=== PATIENT | male | born 1930 | race Caucasian/White ===

== ENCOUNTER 2018-05-26 14:06 | Day surgery (SDC) | payer OTHER ==
[2018-05-23 12:32] VITALS: BMI 28.8
[2018-05-26] MEDS ORDERED: PROPOFOL 20 ML ONE (15:19)
[2018-05-26] MEDS ORDERED: SUCCINYLCHOLINE CHLORIDE 200 MG/10 ML VIAL ONE (15:19)
[2018-05-26] MEDS ORDERED: ROCURONIUM BROMIDE 50 MG/5 ML VIAL ONE (15:19)
[2018-05-26] MEDS ORDERED: LIDOCAINE HCL 1%, 10 MG/ML (20ML VIAL) ONE (15:20)
[2018-05-26] MEDS ORDERED: BACITRACIN 15 GM TUBE TOPICAL OINTMENT ONE (15:20)
[2018-05-26] MEDS ORDERED: LIDOCAINE HCL/PF 2% SDV 5ML VIAL ONE (15:25)
[2018-05-26] MEDS ORDERED: ceFAZolin SODIUM 1 GM VIAL IVPB ONE (16:12)
[2018-05-26] MEDS ORDERED: ceFAZolin SODIUM 1 GM VIAL ONE (16:15)
[2018-05-26] MEDS ORDERED: ONDANSETRON 4 MG/2 ML VIAL IVPUSH PRN (16:16)
[2018-05-26] MEDS ORDERED: PHENYLEPHRINE HCL 10 MG/1 ML SINGLE DOSE VIAL ONE (16:29)
[2018-05-26] MEDS ORDERED: LACTATED RINGERS SOLUTION 1,000 ML IV SCH (16:30)
[2018-05-26] MEDS ORDERED: GLYCOPYRROLATE 0.2 MG/1 ML VIAL ONE (16:30)
[2018-05-26] MEDS ORDERED: NEOSTIGMINE METHYLSULFATE 0.5 MG/ML - 10 ML MDV ONE (16:34)
--- NOTE | 2018-05-26 16:44 | HP ---
Satellite PMH - Chief Complaint History of Present Illness: 87 year old man with open wound of left posterior calf with exposed tendon. He is s/p revascularization of femoral and tibial arteries with improved vascularity of the wound. History Source: Patient Limitations to Obtaining History: No Limitations - Past Medical History Allergies/Adverse Reactions: Allergies Allergy/AdvReac Type Severity Reaction Status Date / Time No Known Allergies Allergy Verified 05/23/18 12:32 Cardiovascular: Yes: CAD, Hyperlipdemia, Other (PAD) Endocrine: Yes: Diabetes Mellitus, Hypothyroidism - Current Medications Current Medications: Home Medications Medication Instructions Recorded Levothyroxine [Synthroid -] 150 mcg PO DAILY 05/14/18 Lipitor 40 mg PO DAILY 05/14/18 Metformin HCl ER 750 mg PO TID 05/14/18 Metoprolol Tartrate 25 mg PO BID 05/14/18 Aspirin [ASA -] 81 mg PO DAILY 05/23/18 Ergocalciferol [Vitamin D2] 50,000 unit PO Q7D@1000 05/23/18 Satellite Physical Exam - Physical Examination Vital Signs: Vital Signs Period Temp Pulse Resp BP Sys/De La Cruz Pulse Ox Last 24 Hr 98.0 F-98.0 F 87-87 -18 103-103/65-65 95 General Appearance: Alert & Oriented x3 ENT: Clear Lung: Clear to auscultation Heart: Regular rate & rhythm Abdomen: Soft Extremities: Other (2+ edema left ankle and foot. Open wound posterior lower calf with necrotic Achilles tendon and granulation tissue around.) Satellite Impression/Plan - Impression/Plan Impression: Open wound with necrotic tendon left foot. S/p revascularization with improved distal flow. DM Operative Procedure: Excsional debridement skin and tendon left leg Date to be Performed: 05/26/18
--- NOTE | 2018-05-26 16:46 | OP ---
Operative Note - Note: Operative Date: 05/26/18 Pre-Operative Diagnosis: Necrosis Achilles tendon left leg. Open wound left leg Operation: Excisional debridement left leg wound, skin, subQ and tendon Findings: Necrosis of superficial portion left Achilles tendon. Deeper section of tendon appeared viable. Post-Operative Diagnosis: Same as Pre-op Surgeon: Yuri Duran Anesthesiologist/VINEYARD SUPERVISOR: Ignacio Suarez Anesthesia: General Specimens Removed: Achilles tendon Estimated Blood Loss (mls): 20 Operative Report Dictated: Yes
[2018-05-26 20:01] VITALS: BP 138/77; PULSE 66; TEMP 98
--- NOTE | 2018-05-27 09:05 | OP ---
DATE OF OPERATION: 05/26/2018 SURGEON: Yuri Joshi MD PROCEDURE: Excisional debridement of left leg wound including skin and tendon. PREOPERATIVE DIAGNOSIS: Necrotic Achilles tendon, left leg. POSTOPERATIVE DIAGNOSIS: Necrotic Achilles tendon, left leg. ANESTHESIA: General ANESTHESIOLOGIST: Ignacio Suarez MD OPERATIVE FINDINGS: There was a chronic wound on the posterior aspect of the left lower calf and heel. The wound measured approximately 15 cm in length, and there was exposed Achilles tendon which was necrotic superficially. OPERATIVE PROCEDURE: Following routine patient identification with side and site verification, general anesthesia was induced. The patient was placed in the prone position with appropriate padding. The left leg and foot were prepped with Betadine solution. Timeout was performed. The tract over the Achilles tendon was opened superiorly with a scalpel, using cautery for hemostasis. The tendon was then excised to remove the necrotic portion without total excision of the tendon. The cut portion appeared viable with bleeding seen from the base. The tendon was debrided from the calcaneus back to the upper end of the incision as there did not appear to be any tracking along the tendon. Scalpel and curette were then used to debride the surrounding soft tissue and skin to remove any nonviable tissue. The wound was irrigated with saline. The wound was then packed open with moist gauze, covered with Xeroform, dry gauze, ABD pad, Kerlix, and Stanley bandage. A posterior mold was then created using fiberglass to keep the foot in a neutral position. This was attached to the leg with a couple of Stanley bandages. The patient was then taken to the recovery room in stable condition. YURI OJSHI M.D. [id number]
--- NOTE | 2018-05-28 12:03 | PATH ---
Surgical Pathology Report Patient Name: [facility]. Rec. #: [id number] /Age/Gender: 1930 (Age: 87) / M Account: [id number] Location: [facility] SURGICAL Taken: 05/26/2018 Received: 05/27/2018 Reported: 05/28/2018 Physicians: Yuri Duran M.D. Specimen(s) Received NECROTIC TISSUE LEFT ACHILLES TENDON Clinical History Necrosis Achilles tendon Final Diagnosis ACHILLES TENDON, LEFT, NECROTIC TISSUE, EXCISION: SOFT TISSUE WITH MARKED ACUTE NECROTIZING INFLAMMATION AND GRANULATION TISSUE. Electronically Signed Kay Freeman M.D. Gross Description Received in formalin labeled "necrotic tissue left Achilles tendon," is a 6.5 x 4.4 x 1.2 cm aggregate of morales-gage, necrotic portions of fibrous tissue, consistent with necrotic tendon. Worker'S Compensation Claims Examiner sections are submitted in one cassette. 05/27/201805/27/2018
== END 2018-05-26 19:55 | disposition home or self-care (01) ==
LOC: JASU-SURG 14:06
PROVIDERS: ATTEND Surgery
PROC: 0LBP0ZZ Excision of Left Lower Leg Tendon, Open Approach (ICD-10-PCS; principal; 2018-05-26 15:30)
DX: E11.9 Type 2 diabetes mellitus without complications (principal); Z79.84 Long term (current) use of oral hypoglycemic drugs
CPT/HCPCS: 82962; 88304-TC; 94760

== ENCOUNTER 2018-07-04 18:32 | Emergency (ER) | payer OTHER ==
--- NOTE | 2018-07-04 18:56 | PDOC ---
Rapid Medical Evaluation Time Seen by Provider: 07/04/18 18:49 Medical Evaluation: Allergies Allergy/AdvReac Type Severity Reaction Status Date / Time No Known Allergies Allergy Verified 06/11/18 14:39 07/04/18 18:52 I have performed a brief in-person evaluation of this patient. The patient presents with a chief complaint of: Sent in for evaluation for possible cellulitis to LLE. Pt f/u with Dr Duran and is currently on augmentin, took 2 doses so far. States visiting nurse saw wound today and was concerned about ?worsening swelling and warmth to L leg. Pt denies pain or fever. H/o DM, necrosis of L achilles tendon w/ open wound, s/p debridement Pertinent physical exam findings:Stable and well christian, w/ LLE dressing in place I have ordered the following:labs The patient will proceed to the ED for further evaluation. 07/04/18 18:59 Discharge Disposition - Diagnosis Cellulitis, leg Qualifiers: Laterality: left Qualified Code(s): L03.116 - Cellulitis of left lower limb - Referrals - Patient Instructions - Post Discharge Activity
[2018-07-04 19:00] VITALS: BP 135/100; PULSE 75; TEMP 98; BMI 27.6
--- NOTE | 2018-07-04 20:15 | PDOC ---
Attending Attestation - HPI HPI: 07/04/18 20:57 The patient is a 87 year old male, with a significant PMH of diabetes mellitus, who presents to the emergency department for evaluation of worsening chronic left lower extremity wound. The patient endorses 3 days of worsening left lower extremity erythema, edema and pain proximal to the wound. The patient states he was seen by wound care Dr Whittington yesterday and started on Augmentin 875 mg BID ( patient states he has since completed 2 doses). The patient states the home wound care nurse advised the patient to come to the ED for evaluation today secondary to worsening cellulitis vs DVT. The patient states he is able to ambulate with a limp. The patient denies chest pain, shortness of breath, headache and dizziness. Denies fever, chills, nausea, vomit, diarrhea and constipation. Denies dysuria, frequency, urgency and hematuria. Allergies: NKA Documentation prepared by Sven Mas, acting as medical advisor for Soco Valerio MD. - Physicial Exam PE: 07/04/18 21:45 GENERAL: Awake, alert, and fully oriented, in no acute distress HEAD: No signs of trauma EYES: PERRLA, EOMI, sclera anicteric, conjunctiva clear ENT: Auricles normal inspection, hearing grossly normal, nares patent, oropharynx clear without exudates. Moist mucosa NECK: Normal ROM, supple, no lymphadenopathy, JVD, or masses LUNGS: Breath sounds equal, clear to auscultation bilaterally. No wheezes, and no crackles HEART: Regular rate and rhythm, normal S1 and S2, no murmurs, rubs or gallops ABDOMEN: Soft, nontender, normoactive bowel sounds. No guarding, no rebound. No masses EXTREMITIES: Normal range of motion, no edema. No clubbing or cyanosis. No cords, erythema, or tenderness NEUROLOGICAL: Cranial nerves II through XII grossly intact. Normal speech. SKIN: (+) 12 cm by 5 cm left open achilles wound, good distal granulation with area of proximal necrosis w/ fibrinous exudate. (+) Erythema, edema, and warmth noted to proximal 1/3 of calf. Warm, Dry, normal turgor, no rashes. <Sven Mas - Last Filed: 07/04/18 21:45> - Resident Resident Name: Matt Tavarez - ED Attending Attestation I have performed the following: I have examined & evaluated the patient, The case was reviewed & discussed with the resident, I agree w/resident's findings & plan - Medical Decision Making 07/04/18 20:36 Pt will have sonogram of the left calf. He had a wet to dry dressing replaced. He has surrounding cellulitis going up the posterior aspect of his calf. 07/04/18 22:06 Pt's sed rate is 92. Duplex doppler of the left calf is pending. 07/04/18 22:45 Pt's sed rate and CRP are elevated; we spoke to wound care/vasc surg Dr. Duran who is aware and agrees that pt is stable for discharge home. <Soco Valerio - Last Filed: 07/04/18 22:46>
--- NOTE | 2018-07-04 20:15 | PDOC ---
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 The patient was evaluated by wound care yesterday and given Augmentin BID, of which he has taken two doses. He was seen by the home wound care nurse today and advised to present to the ED for evaluation for concern of worsening cellulitis vs DVT. Patient's dressing is normally changes Q3D. Patient ambulates with cane. No prolonged lack of ambulation Denies fevers/chills, myalgias, GAUTHIER, vision changes, chest pain, SOB, abdominal pain, N/V/C/D. 07/04/18 20:38 Past History - Past Medical History Allergies/Adverse Reactions: Allergies Allergy/AdvReac Type Severity Reaction Status Date / Time No Known Allergies Allergy Verified 07/04/18 18:58 Home Medications: Ambulatory Orders Levothyroxine [Synthroid -] 150 mcg PO DAILY 05/14/18 Lipitor 40 mg PO DAILY 05/14/18 Metformin HCl ER 750 mg PO TID 05/14/18 Metoprolol Tartrate 25 mg PO BID 05/14/18 Aspirin [ASA -] 81 mg PO DAILY 05/23/18 Ergocalciferol [Vitamin D2] 50,000 unit PO SA 05/23/18 Collagenase Clostridium Hist. [Santyl] 1 applic TP DAILY 30 Days #60 oint...g. 05/28/18 Amox-Tr/K Cl [Augmentin - 875Mg Tablet] 1 tab PO BID 07/04/18 Anemia: No Asthma: No Cancer: Yes (thyroid (removed)) Cardiac Disorders: No CVA: No COPD: No CHF: No Dementia: No Diabetes: Yes GI Disorders: No Disorders: No HTN: No Hypercholesterolemia: No Liver Disease: No Seizures: No Thyroid Disease: No - Surgical History Orthopedic Surgery: Yes ([place] knees , right hip replacement) - Suicide/Smoking/Psychosocial Hx Smoking History: Unknown if ever smoked Have you smoked in the past 12 months: No Hx Alcohol Use: No Drug/Substance Use Hx: No Substance Use Type: None Review of Systems - Review of Systems Able to Perform ROS?: Yes Comments:: GENERAL/CONSTITUTIONAL: No fever or chills. No weakness HEAD, EYES, EARS, NOSE AND THROAT: No change in vision. No ear pain or discharge. No sore throat CARDIOVASCULAR: No chest pain or shortness of breath RESPIRATORY: Denies cough, hemoptysis GASTROINTESTINAL: No nausea, vomiting, diarrhea or constipation GENITOURINARY: No dysuria, frequency, or change in urination MUSCULOSKELETAL: No joint or muscle swelling or pain. No neck or back pain SKIN: per HPI NEUROLOGIC: No headache, vertigo, loss of consciousness, or change in strength/ sensation ENDOCRINE: No increased thirst. No abnormal weight change HEMATOLOGIC/LYMPHATIC: No anemia, easy bleeding, or history of blood clots ALLERGIC/IMMUNOLOGIC: No hives or skin allergy 07/04/18 20:13 Is the patient limited Slovak proficient: No *Physical Exam - Vital Signs Last Vital Signs Temp Pulse Resp BP Pulse Ox 98 F 75 18 135/100 98 07/04/18 18:58 07/04/18 18:58 07/04/18 18:58 07/04/18 18:58 07/04/18 18:58 - Physical Exam Comments: GENERAL: Awake, alert, and fully oriented, in no acute distress HEAD: No signs of trauma, normocephalic, atraumatic EYES: PERRLA, EOMI, sclera anicteric, conjunctiva clear ENT: Hearing grossly normal, nares patent, oropharynx clear without exudates. Moist mucosa LUNGS: No distress, speaks full sentences, clear to auscultation bilaterally HEART: Regular rate and rhythm, normal S1 and S2, no murmurs appreciated, peripheral pulses normal and equal bilaterally ABDOMEN: Soft, nontender, normoactive bowel sounds. No guarding, no rebound EXTREMITIES: Wound as per below, otherwise FROM and strength 5/5 throughout NEUROLOGICAL: Cranial nerves II through XII grossly intact. Normal speech, no focal sensorimotor deficits SKIN: L open achilles wound, 13cm x 4cm, good distal granulation with area of proximal necrosis w/ fibrinous exudate. Proximal to wound, cellulitis, erythema , swelling, warmth to proximal 1/3 of calf. 07/04/18 20:15 Moderate Sedation - Procedure Monitoring Vital Signs: Procedure Monitoring Vital Signs Temperature 98 F 07/04/18 18:58 Pulse Rate 75 01/18/19 18:58 Respiratory Rate 18 07/04/18 18:58 Blood Pressure 135/100 07/04/18 18:58 O2 Sat by Pulse Oximetry (%) 98 07/04/18 18:58 ED Treatment Course - LABORATORY CBC & Chemistry Diagram: 07/04/18 21:10 07/04/18 21:10 - RADIOLOGY Radiology Studies Ordered: Category Date Time Status CHEST X-RAY PORTABLE* [RAD] Stat Radiology 07/04/18 20:11 Ordered Medical Decision Making - Medical Decision Making The patient is an 87M w/ a history of T2DM and a L open achilles wound who presents for evaluation for concern of proximal cellulitis vs DVT ED Course CMP, CBC, Blood cx, ESR, CRP ECG, CXR 07/04/18 20:45 No HUDSON No leukocytosis CRP mildly elevated Discussed case w/ Dr. Duran, in agreement pt okay to D/C home with continued Augmentin regimen. Plan discussed w/ patient who in agreement and verbalized understanding Discharge instructions and return precautions given Dispo: home 07/05/18 04:59 *DC/Admit/Observation/Transfer Diagnosis at time of Disposition: Cellulitis, leg Qualifiers: Laterality: left Qualified Code(s): L03.116 - Cellulitis of left lower limb - Discharge Dispostion Disposition: HOME Condition at time of disposition: Stable Decision to Admit order: No - Referrals Referrals: Yuri Duran MD [Staff Physician] - - Patient Instructions Printed Discharge Instructions: DI for Cellulitis -- Adult Additional Instructions: You were seen in the Emergency Department for evaluation of left leg redness concerning for cellulitis. You did not have a fever and labs were not concerning for systemic infection. Continue to take the antibiotic prescribed. Follow up with your primary care provider and Dr. Duran. Return to the Emergency Department if you develop fevers/chills, chest pain, trouble breathing, worsening of your cellulitis despite antibiotic use, or any new/concerning symptoms. - Post Discharge Activity
[2018-07-04] MEDS ORDERED: AMOX TR/POT CLAV 875MG/125MG TABLETS (FP) PO ONE (20:55)
[2018-07-04 21:24] LABS: BASO % 0.7 % (0-2.0); EOS % 0.7 % (0-4.5); HEMATOCRIT 35.9 % (35.4-49); HEMOGLOBIN 12.5 GM/dL (11.7-16.9); LYMPH % 9.7 % (8-40); MCHC 34.8 g/dl (32.0-35.9); MEAN CELL VOLUME 89.1 fl (80-96); MEAN PLT VOLUME 8.1 fl (7.5-11.1); MONO % 10.2 % (3.8-10.2); NEUT % 78.7 % (42.8-82.8); PLATELET COUNT 245 K/MM3 (134-434); RBC 4.02 M/mm3 (4.00-5.60); RDW 13.8 % (11.9-15.9); WHITE BLOOD COUNT 10.4 K/mm3 (4.0-10.0)
[2018-07-04] MEDS ORDERED: AMOX TR/POT CLAV 875MG/125MG TABLETS (FP) ONE (21:41)
[2018-07-04 21:53] LABS: ALK PHOS 94 U/L (45-117); ANION GAP 10 MMOL/L (8-16); BILIRUBIN,TOTAL 0.6 mg/dL (0.2-1); BLOOD UREA NITROGEN 20 mg/dL (7-18); CALCIUM 8.4 mg/dL (8.5-10.1); CHLORIDE 102 mmol/L (98-107); CO2 28 mmol/L (21-32); CREATININE 0.8 mg/dL (0.55-1.3); GLUCOSE,RANDOM 121 mg/dL (74-106); POTASSIUM 4.4 mmol/L (3.5-5.1); SGOT/AST 20 U/L (15-37); SGPT/ALT 19 U/L (13-61); SODIUM 139 mmol/L (136-145); TOT PROT 6.7 g/dl (6.4-8.2)
--- NOTE | 2018-07-06 19:27 | EKG ---
Test Reason : Blood Pressure : / mmHG Vent. Rate : 092 BPM Atrial Rate : 092 BPM P-R Int : 196 ms QRS Dur : 088 ms QT Int : 342 ms P-R-T Axes : 051 039 018 degrees QTc Int : 422 ms NORMAL SINUS RHYTHM NORMAL ECG NO PREVIOUS ECGS AVAILABLE Confirmed by ANGELITO WALKER MD ([id number]) on 07/06/2018 7:27:11 PM Referred By: Confirmed By:ANGELITO WALKER MD
== END 2018-07-04 23:27 | disposition home or self-care (01) ==
LOC: JER 18:32
DX: L03.116 Cellulitis of left lower limb (principal); E11.9 Type 2 diabetes mellitus without complications; Z79.84 Long term (current) use of oral hypoglycemic drugs; Z85.850 Personal history of malignant neoplasm of thyroid; E89.0 Postprocedural hypothyroidism
CPT/HCPCS: 36415; 71045-TC-FY; 80053; 85025; 85651; 86140; 87040; 93005; 93010; 93971-TC; 99283-25

== ENCOUNTER 2018-07-14 14:00 | Day surgery (SDC) | payer OTHER ==
[2018-07-10 13:20] VITALS: BMI 29.1
--- NOTE | 2018-07-14 17:05 | HP ---
Satellite H - Chief Complaint History of Present Illness: 87 year old man with open wound of left posterior calf s/p debridement 1 month ago. He has deveoped proximal infection under skin requiring drainage. History Source: Patient - Past Medical History Allergies/Adverse Reactions: Allergies Allergy/AdvReac Type Severity Reaction Status Date / Time No Known Allergies Allergy Verified 07/14/18 15:41 Cardiovascular: Yes: CAD, Hyperlipdemia, Other (PAD) Endocrine: Yes: Diabetes Mellitus, Hypothyroidism - Current Medications Current Medications: Home Medications Medication Instructions Recorded Levothyroxine [Synthroid -] 150 mcg PO DAILY 05/14/18 Lipitor 40 mg PO DAILY 05/14/18 Metformin HCl ER 750 mg PO TID 05/14/18 Metoprolol Tartrate 25 mg PO BID 05/14/18 Aspirin [ASA -] 81 mg PO DAILY 05/23/18 Ergocalciferol [Vitamin D2] 50,000 unit PO SA 05/23/18 Collagenase Clostridium Hist. 1 applic TP DAILY 30 Days #60 05/28/18 [Santyl] oint...g. Satellite Physical Exam - Physical Examination Vital Signs: Vital Signs Period Temp Pulse Resp BP Sys/De La Cruz Pulse Ox Last 24 Hr 97.4 F 105 20 104/60 98 General Appearance: Alert & Oriented x3 ENT: Clear Lung: Clear to auscultation Heart: Regular rate & rhythm Abdomen: Soft, No tenderness Extremities: Other (Left posterior calf with granulating base. Proximal tunnel with purulent drainage) Satellite Impression/Plan - Impression/Plan Impression: Infection left calf Operative Procedure: Debridement of left calf Date to be Performed: 07/14/18
[2018-07-14] MEDS ORDERED: CLINDAMYCIN 600 MG PREMIX BAG IVPB ONE (17:37)
--- NOTE | 2018-07-14 18:16 | OP ---
Operative Note - Note: Operative Date: 07/14/18 Pre-Operative Diagnosis: Infected wound left calf Operation: Excisional debridement of fascia and tendon left posterior calf Findings: Necrotic fascia and tendon of posterior compartment of left calf Post-Operative Diagnosis: Same as Pre-op Surgeon: Yuri Duran Anesthesiologist/NITRATING ACID MIXER: Pedro Luis Guerrero Anesthesia: Fractional Estimated Blood Loss (mls): 50
[2018-07-14] MEDS ORDERED: oxyCODONE HCL 5 MG TABLET PO PRN (18:19)
[2018-07-14] MEDS ORDERED: ONDANSETRON 4 MG/2 ML VIAL IVPUSH PRN (18:19)
[2018-07-14] MEDS ORDERED: LACTATED RINGERS SOLUTION 1,000 ML IV SCH (18:30)
[2018-07-14 21:09] VITALS: BP 130/72; PULSE 94; TEMP 98
--- NOTE | 2018-07-16 09:45 | OP ---
DATE OF OPERATION: 07/14/2918 SURGEON: Yuri Joshi M.D. PROCEDURE: Excisional debridement of fascia, tendon and muscle left posterior calf. PREOPERATIVE DIAGNOSIS: Infected wound left calf. POSTOPERATIVE DIAGNOSIS: Infected wound left calf. ANESTHESIA: Fractional. ANESTHESIOLOGIST: Pedro Luis Guerrero M.D. OPERATIVE FINDINGS: There was fascial necrosis extending from the lower posterior calf wound on the left proximally into the mid to upper calf. OPERATIVE PROCEDURE: Following routine patient identification, he was placed in the right lateral decubitus position. Intravenous sedation was established. The left lower leg and foot were prepped with Betadine solution. Timeout was performed. Lidocaine 1% was infiltrated along the posterior aspect of the calf extending proximally from the open wound on the distal calf. An incision was made over the tract along the subcutaneous tissues and divided down to the necrotic fascia with cautery. Cautery and sharp dissection were used to excise grossly necrotic fascia, tendon and muscle. A curette was used to remove additional tissue. The wound was irrigated with dilute peroxide and saline and packed open with Iodoform gauze. A sterile wrap was applied and the patient was taken to the recovery room in stable condition. YURI JOSHI M.D. [id number]
--- NOTE | 2018-07-16 17:04 | PATH ---
Surgical Pathology Report Patient Name: ALEX NOGUERA [facility]. Rec. #: [id number] /Age/Gender: 1930 (Age: 87) / M Account: [id number] Location: [facility] SURGICAL Taken: 07/14/2018 Received: 07/15/2018 Reported: 07/16/2018 Physicians: Yuri Duran M.D. Specimen(s) Received NECROTIC TISSUE LEFT LEG Clinical History Left leg wound Final Diagnosis NECROTIC TISSUE, LEG, LEFT, DEBRIDEMENT: SOFT TISSUE WITH MARKED ACUTE NECROTIZING INFLAMMATION. Electronically Signed Kay Freeman M.D. Gross Description Received in formalin labeled "necrotic tissue left leg," is a 7.0 x 5.0 x 2.8 cm aggregate of morales benitez, necrotic soft tissue. Lab Systems Analyst sections are submitted in one cassette. DL/07/15/2018 saudi07/15/2018
== END 2018-07-14 18:19 | disposition home or self-care (01) ==
LOC: JASU-SURG 14:00
PROVIDERS: ATTEND Surgery
PROC: 0LBP0ZZ Excision of Left Lower Leg Tendon, Open Approach (ICD-10-PCS; 2018-07-14)
PROC: 0JBP0ZZ Excision of Left Lower Leg Subcutaneous Tissue and Fascia, Open Approach (ICD-10-PCS; 2018-07-14)
PROC: 0KBT0ZZ Excision of Left Lower Leg Muscle, Open Approach (ICD-10-PCS; principal; 2018-07-14 16:00)
DX: L76.82 Other postprocedural complications of skin and subcutaneous tissue (principal); E11.52 Type 2 diabetes mellitus with diabetic peripheral angiopathy with gangrene; I96 Gangrene, not elsewhere classified; Z79.84 Long term (current) use of oral hypoglycemic drugs
CPT/HCPCS: 88304-TC; 94760

== ENCOUNTER 2018-07-14 21:42 | Inpatient (IN) | payer OTHER, MEDICARE ==
--- NOTE | 2018-07-14 22:00 | PDOC ---
History of Present Illness - General Chief Complaint: Pain, Acute Stated Complaint: FOLLOW UP Time Seen by Provider: 07/14/18 21:59 History Source: Patient Exam Limitations: No Limitations - History of Present Illness Initial Comments: 07/14/18 22:02 This is an 87 yo M with PMH of T2DM and a chronic L achilles wound, who was in the ED 07/04/18 for wound infection and underwent excisional debridement of fascia and tendon left posterior calf earlier today with Dr Sherman, now resents due to inability to ambulate. patient had his surgery at 430 and was sent home by 630pm. he usually ambulates but is unable to do so at this time, unable to get up to the 3rd floor where his apt is and still feels weak and sedated. He denies pain, n/v/c, f/c. He lives alone and has and aid 3 days/week 07/14/18 22:03 07/14/18 22:30 07/14/18 22:34 Past History - Past Medical History Allergies/Adverse Reactions: Allergies Allergy/AdvReac Type Severity Reaction Status Date / Time No Known Allergies Allergy Verified 07/14/18 21:59 Home Medications: Ambulatory Orders Levothyroxine [Synthroid -] 150 mcg PO DAILY 05/14/18 Lipitor 40 mg PO DAILY 05/14/18 Metformin HCl ER 750 mg PO TID 05/14/18 Metoprolol Tartrate 25 mg PO BID 05/14/18 Aspirin [ASA -] 81 mg PO DAILY 05/23/18 Ergocalciferol [Vitamin D2] 50,000 unit PO SA 05/23/18 Collagenase Clostridium Hist. [Santyl] 1 applic TP DAILY 30 Days #60 oint...g. 05/28/18 Clindamycin [Cleocin -] 300 mg PO TID #21 capsule 07/14/18 Anemia: No Asthma: No Cancer: Yes (thyroid (removed)) Cardiac Disorders: No CVA: No COPD: No CHF: No Dementia: No Diabetes: Yes GI Disorders: No Disorders: No HTN: Yes Hypercholesterolemia: Yes Liver Disease: No Seizures: No Thyroid Disease: No - Surgical History Cardiac Surgery: Yes (STENT X1- 5 YEARS AGO) Orthopedic Surgery: Yes (B/L TKR , right hip replacement) - Suicide/Smoking/Psychosocial Hx Smoking History: Never smoked Have you smoked in the past 12 months: No Information on smoking cessation initiated: No Hx Alcohol Use: No Drug/Substance Use Hx: No Substance Use Type: None Review of Systems - Review of Systems Able to Perform ROS?: Yes Is the patient limited Slovenian proficient: No Constitutional: No: Chills, Fever Respiratory: No: Cough, Orthopnea, Shortness of Breath Cardiac (ROS): No: Chest Pain, Palpitations ABD/GI: No: Constipated, Diarrhea, Nausea, Vomiting, Abdominal cramping : No: Dysuria Musculoskeletal: Yes: Muscle Weakness Neurological: Yes: Weakness. No: Headache *Physical Exam - Vital Signs Last Vital Signs Temp Pulse Resp BP Pulse Ox 98.0 F 128 H 16 92/53 L 100 07/14/18 21:43 07/14/18 21:43 07/14/18 21:43 07/14/18 21:43 07/14/18 21:43 - Physical Exam General Appearance: Yes: Appropriately Dressed, Other (sedated ) HEENT: positive: EOMI. negative: Normal Voice (slightly slurred ), Scleral Icterus (R), Scleral Icterus (L) Neck: positive: Supple Respiratory/Chest: positive: Lungs Clear, Normal Breath Sounds Cardiovascular: positive: Regular Rhythm, Regular Rate, S1, S2 Gastrointestinal/Abdominal: positive: Normal Bowel Sounds, Flat, Soft. negative : Tender Extremity: positive: Other (RLE clean dressing intact on foot ) Integumentary: positive: Dry, Warm Neurologic: positive: inventory specialist manager II-XII NML intact (grossly ) Moderate Sedation - Procedure Monitoring Vital Signs: Procedure Monitoring Vital Signs Temperature 98.0 F 07/14/18 21:43 Pulse Rate 128 H 07/14/18 21:43 Respiratory Rate 16 07/14/18 21:43 Blood Pressure 92/53 L 07/14/18 21:43 O2 Sat by Pulse Oximetry (%) 100 07/14/18 21:43 ED Treatment Course - ADDITIONAL ORDERS Additional order review: 07/14/18 22:34 patient is unable to ambulate and appears sedated from recent surgery. requires in hospital observation and PT eval post op *DC/Admit/Observation/Transfer Diagnosis at time of Disposition: Unable to ambulate Cellulitis, leg Qualifiers: Laterality: left Qualified Code(s): L03.116 - Cellulitis of left lower limb - Discharge Dispostion Condition at time of disposition: Guarded Decision to Admit order: Yes - Referrals - Patient Instructions - Post Discharge Activity
--- NOTE | 2018-07-14 22:34 | PDOC ---
Attending Attestation - HPI HPI: The patient is an 87 year old male with a significant past medical history of achilles tendon surgery (07/14/2018), who presents to the emergency department today complaining of trouble with ambulation. Patient states they had achilles tendon surgery this afternoon and was discharged at approximately 6:30pm. Patient states he lives on the third floor and was unable to ambulate there. Patient denies any other complaints. The patient denies chest pain, shortness of breath, headache and dizziness. Denies fever, chills, nausea, vomit, diarrhea and constipation. Denies dysuria, frequency, urgency and hematuria. Allergies: NKA Past surgical history: achilles tendon surgery (07/14/2018) Social history: No reported PCP: Dr. Timothy Jovel 07/14/18 22:37 <Aleyda Zheng - Last Filed: 07/14/18 22:37> - Resident Resident Name: Joan Wise - ED Attending Attestation I have performed the following: I have examined & evaluated the patient, The case was reviewed & discussed with the resident, I agree w/resident's findings & plan, Exceptions are as noted - HPI HPI: 07/14/18 22:32 this 87 yo male just had surgery by Dr Duran this evening at 6 pm and was discharged home. the patinet lives on the third floor and was brought home by a friend but the patent could not walk up the stairs and his friend could not carry him up the stairs so they returned to the hospital 07/14/18 22:33 - Physicial Exam PE: 07/15/18 00:28 tall 87 yo male p/w left lower extremity pain s/p surgery this afternoon head ncat neck supple lungs no wheezing cvs [id number] abd flat,nontender extremities left leg is bandaged following surgery tonight neuro axox3 skin warm and dry - Medical Decision Making 07/14/18 22:34 87 yo male who is diabetes and had an excisional debridement of fascia and tendon of left posterior calf tonight and was initallly discharged but was unable to walk up his stairs to his third floor apartment. Pt admitted for OBS med/surg 07/14/18 22:35 07/15/18 00:36 07/15/18 00:37 <Salud Gallegos - Last Filed: 07/15/18 00:37> Attestations - Attestations 07/14/18 22:38 Documentation prepared by Aleyda Zheng, acting as medical terminologist for Salud Gallegos MD. <Aleyda Zheng - Last Filed: 07/14/18 22:37>
--- NOTE | 2018-07-14 23:32 | PN ---
Teaching Attending Note Name of Resident: Radha oCpeland ATTENDING PHYSICIAN STATEMENT I saw and evaluated the patient. I reviewed the resident's note and discussed the case with the resident. I agree with the resident's findings and plan as documented. SUBJECTIVE: Patient is an 87 year old man with PMH of NIDDM, hypothyroidism (?thyroidectomy) , revascularization of femoral and tibial arteries, HTN, HLD, CAD with 1 stent, bilateral total knee replacement, right hip replacement and a chronic left achilles wound who presents to the ER due to inability to ambulate. He was seen in the ER on 07/04/18 for wound infection and underwent excisional debridement of fascia and tendon of left posterior calf earlier today with Dr Sherman. He had his surgery at 4:30 pm and was sent home by 6:30pm. He usually ambulates but is unable to do so. Was unable to get up to his 3rd floor apartment. Feels weak and sedated. He denies pain, nausea, vomiting, fever or chills. He lives alone and has a healthcare aide 3 days/week. OBJECTIVE: Alert Vital Signs Period Temp Pulse Resp BP Sys/[place] Cruz Pulse Ox Last 24 Hr 98.0 F 128 16 92/53 100 HEENT: No Jaundice, eye redness or discharge, PERRLA, EOMI. Normocephalic, atraumatic. External ears are normal and hearing is grossly intact. No nasal discharge. Neck: Supple, nontender. No palpable adenopathy or thyromegaly. No JVD Chest: Good effort. Clear to auscultation and percussion. Heart: Regular. No S3, rub or murmur Abdomen: Not distended, soft, nontender and no HSM. No rebound or guarding. Normoactive bowel sounds. Ext: Peripheral pulses intact. Left leg wound dressed. Skin: Warm and dry. No petechiae, rash or ecchymosis. Neuro: Alert. Oriented x3. CN 2-12 grossly intact. Sensation grossly intact in all four extremities and DTR are symmetric. Home Medications Medication Instructions Recorded Levothyroxine [Synthroid -] 150 mcg PO DAILY 05/14/18 Lipitor 40 mg PO DAILY 05/14/18 Metformin HCl ER 750 mg PO TID 05/14/18 Metoprolol Tartrate 25 mg PO BID 05/14/18 Aspirin [ASA -] 81 mg PO DAILY 05/23/18 Ergocalciferol [Vitamin D2] 50,000 unit PO SA 05/23/18 Collagenase Clostridium Hist. 1 applic TP DAILY 30 Days #60 05/28/18 [Santyl] oint...g. Clindamycin [Cleocin -] 300 mg PO TID #21 capsule 07/14/18 ASSESSMENT AND PLAN: 1. Post left leg debridement/Inability to ambulate - Has had tachycardia and low BP. Sepsis is velasco concern. Will check TFT, CBC, CMP, Urinalysis, EKG, CXR, lactic acid and blood cultures STAT. Velasco concern is to rule out sepsis. Will treat with IV NS, vancomycin and zosyn pending sepsis workup. Consult ID and Surgery. 2. DM - For now, we will hold the home diabetes drugs and implement sliding scale insulin regimen. Provide comprehensive diabetes care with patient teaching and counseling about the importance of euglycemia, eye care and foot care. 3. DVT prophylaxis - Lovenox 40 mg SQ q 24 hours. 4. Advance directives - Full code
[2018-07-15] MEDS ORDERED: SODIUM CHLORIDE 250 ML IV STA (00:23)
[2018-07-15 00:43] LABS: BASO % 0.6 % (0-2.0); EOS % 0.1 % (0-4.5); HEMATOCRIT 31.7 % (35.4-49); LYMPH % 3.7 % (8-40); MCH 30.4 pg (25.7-33.7); MCHC 34.6 g/dl (32.0-35.9); MEAN CELL VOLUME 87.9 fl (80-96); MEAN PLT VOLUME 7.7 fl (7.5-11.1); MONO % 7.9 % (3.8-10.2); NEUT % 87.7 % (42.8-82.8); PLATELET COUNT 229 K/MM3 (134-434); RBC 3.61 M/mm3 (4.00-5.60); RDW 13.9 % (11.9-15.9); WHITE BLOOD COUNT 13.7 K/mm3 (4.0-10.0)
--- NOTE | 2018-07-15 00:47 | HP ---
CHIEF COMPLAINT: post -op L tendon excisional debridement unable to ambulate ; PCP: HISTORY OF PRESENT ILLNESS: 86 y/o male PMH of DM, HTN, HLD, hypothyroidism presents to the ED after having a L achilles excisional debridement yesterday with Dr. Duran with complaints of feeling weak/lightheaded and unable to ambulate. Patients surgery ended around 4:40 pm and patient was discharged home to his apartment, of which is on the 3rd floor and he was unable to walk past the second flight of stairs so he had his friend bring him back to the hospital. Of He was not in any pain however, he thought he was still feeling side effects from the sedation as he was feeling quite lethargic and dizzy. Of note, patient was here on 07/04/2018 was diagnosed with cellulitis of the left extremity and was discharged home with augmentin and with strict follow up with Dr. Duran, with whom he follows up with regularly. He completed the course of antibiotics, however, Dr Duran didn't feel the wound was healing properly so he felt the patient needed an I and D. Patient lives alone and has a home health aid 3 times /week. he denies any sick contacts nor any recent travels. ER course was notable for: (1) HR 128; initial BP 95/63 (2) blood cx sent (3) Recent Travel: denies PAST MEDICAL HISTORY: see above PAST SURGICAL HISTORY: B/L hip replacement, 1 stent placed (5 years ago), knee replacement, thyroidectomy Social History: Smoking:denies Alcohol:denies Drugs: denies Family History: father: DM Allergies No Known Allergies Allergy (Verified 07/14/18 21:59) HOME MEDICATIONS: Home Medications Medication Instructions Recorded Levothyroxine [Synthroid -] 150 mcg PO DAILY 05/14/18 Lipitor 40 mg PO DAILY 05/14/18 Metformin HCl ER 750 mg PO TID 05/14/18 Metoprolol Tartrate 25 mg PO BID 05/14/18 Aspirin [ASA -] 81 mg PO DAILY 05/23/18 Ergocalciferol [Vitamin D2] 50,000 unit PO SA 05/23/18 Collagenase Clostridium Hist. 1 applic TP DAILY 30 Days #60 05/28/18 [Santyl] oint...g. Clindamycin [Cleocin -] 300 mg PO TID #21 capsule 07/14/18 REVIEW OF SYSTEMS CONSTITUTIONAL: Present: generalized weakness Absent: fever, chills, diaphoresis, malaise, loss of appetite, weight change HEENT: Absent: rhinorrhea, nasal congestion, throat pain, throat swelling, difficulty swallowing, mouth swelling, ear pain, eye pain, visual changes CARDIOVASCULAR: Absent: chest pain, syncope, palpitations, irregular heart rate, lightheadedness , peripheral edema RESPIRATORY: Absent: cough, shortness of breath, dyspnea with exertion, orthopnea, wheezing, stridor, hemoptysis GASTROINTESTINAL: Absent: abdominal pain, abdominal distension, nausea, vomiting, diarrhea, constipation, melena, hematochezia GENITOURINARY: Absent: dysuria, frequency, urgency, hesitancy, hematuria, flank pain, genital pain MUSCULOSKELETAL: Absent: myalgia, arthralgia, joint swelling, back pain, neck pain SKIN: Absent: rash, itching, pallor HEMATOLOGIC/IMMUNOLOGIC: Absent: easy bleeding, easy bruising, lymphadenopathy, frequent infections ENDOCRINE: Absent: unexplained weight gain, unexplained weight loss, heat intolerance, cold intolerance NEUROLOGIC: Absent: headache, focal weakness or paresthesias, dizziness, unsteady gait, seizure, mental status changes, bladder or bowel incontinence PSYCHIATRIC: Absent: anxiety, depression, suicidal or homicidal ideation, hallucinations. PHYSICAL EXAMINATION Vital Signs - 24 hr 07/14/18 07/14/18 21:43 22:10 Temperature 98.0 F 98.0 F Pulse Rate 128 H Pulse Rate [ 94 H Right Radial] Respiratory 16 18 Rate Blood Pressure 92/53 L Blood Pressure 110/60 [Left Arm] O2 Sat by Pulse 100 97 Oximetry (%) GENERAL: Awake, alert, slightly lethargic EYES: no scleral icterus; EOMI; PEERLA NECK:no JVD; no lymphadenopathy LUNGS:CTA B/L; no rales/rhonchi or wheezing HEART: tachycardic; regular rhythm normal S1 and S2 without murmur, rub or gallop. ABDOMEN: Soft, nontender, not distended, normoactive bowel sounds, no guarding, no rebound, no masses. No hepatomegaly or splenomegaly. MUSCULOSKELETAL: Normal range of motion at all joints. No bony deformities or tenderness. No CVA tenderness. EXTREMITIES: right extremity; warm; well-perfused no clubbing/cyanosis or edema ; L extremity: bandage intact/clean/dry/intact + pulses NEUROLOGICAL: Cranial nerves II-XII intact. Normal speech. Normal gait. PSYCHIATRIC: Cooperative. Good eye contact. Appropriate mood and affect. SKIN: Warm, dry, normal turgor, no rashes or lesions noted, normal capillary refill. ASSESSMENT/PLAN: 87 y/o male PMH of DM, HTN, HLD, hypothyroidism who presents to ED shortly after being discharged post-op for a L achilles tendon excisional debridment with complaints of feeling lethargic and being unable to ambulate. #Sepsis possibly 2/2 achilles wound? -blood cx pending -started on vanc/zosyn -ID consulted -given NS 250 bolus X1 thus far -monitor hemodynamics -lactic acid pending -f/u UA -given NS 250 bolus X1; to place on maintenance fluids #HTN -holding BP meds in light of hypotension -reassess in AM #DM -holding metformin -ISS -BGMS ACHS #Hypothyroidism -c/w synthroid -TSH and T4 pending F/E/N NS monitor electrolytes diabetic diet Problem List - Problem (1) Cellulitis, leg Code(s): L03.119 - CELLULITIS OF UNSPECIFIED PART OF LIMB Qualifiers: Laterality: left Qualified Code(s): L03.116 - Cellulitis of left lower limb Visit type - Emergency Visit Emergency Visit: Yes ED Registration Date: 07/14/18 Care time: The patient presented to the Emergency Department on the above date and was hospitalized for further evaluation of their emergent condition. - New Patient This patient is new to me today: Yes Date on this admission: 07/15/18 - Critical Care Critical Care patient: No
[2018-07-15 01:00] LABS: URINE APPEARANCE CLEAR; URINE BILIRUBIN NEGATIVE (<2.0 mg/dL); URINE COLOR LTYELLOW; URINE GLUCOSE (UA) NEGATIVE (NEGATIVE); URINE KETONE NEGATIVE (NEGATIVE); URINE LEUK ESTERASE NEGATIVE (NEGATIVE); URINE NITRITE NEGATIVE (NEGATIVE); URINE PROTEIN NEGATIVE (NEGATIVE)
[2018-07-15 01:03] LABS: ALBUMIN 2.6 g/dl (3.4-5.0); ALK PHOS 80 U/L (45-117); ANION GAP 7 MMOL/L (8-16); BILIRUBIN,TOTAL 0.8 mg/dL (0.2-1); BLOOD UREA NITROGEN 16 mg/dL (7-18); CALCIUM 7.9 mg/dL (8.5-10.1); CHLORIDE 98 mmol/L (98-107); CO2 29 mmol/L (21-32); CREATININE 1.1 mg/dL (0.55-1.3); GLUCOSE,RANDOM 250 mg/dL (74-106); POTASSIUM 4.1 mmol/L (3.5-5.1); SGOT/AST 16 U/L (15-37); SGPT/ALT 18 U/L (13-61); SODIUM 134 mmol/L (136-145); TOT PROT 6.3 g/dl (6.4-8.2)
[2018-07-15 01:03] LABS: EPI CELLS RARE /HPF (FEW); URINE MUCUS RARE
[2018-07-15] MEDS ORDERED: VANCOMYCIN HCL 1,500 MG in DEXTROSE 5%-WATER - 500 ML IVPB ONE (01:15)
[2018-07-15] MEDS ORDERED: VANCOMYCIN HCL 1,500 MG in DEXTROSE 5%-WATER - 250 ML IVPB ONE (01:15)
[2018-07-15] MEDS: PIPERACILLIN/TAZOB 3.375 GM 3.375 GM in DEXTROSE 5%-WATER - 50 ML IVPB SCH ×3 (02:02→17:49)
[2018-07-15] MEDS ORDERED: SODIUM CHLORIDE 1,000 ML IV SCH (02:15)
[2018-07-15] MEDS ORDERED: PIPERACILLIN/TAZOBACTAM 3.375 GM VIAL IVPB ONE ×3 (02:53→16:40)
[2018-07-15] MEDS ORDERED: DEXTROSE 5%-WATER - 50 ML IVPB ONE ×3 (02:53→16:40)
[2018-07-15 03:15] VITALS: BMI 28.9
[2018-07-15] MEDS: INSULIN SLIDING SCALE (NOVOLOG) 1 VIAL SQ SCH ×4 (07:02→21:06)
[2018-07-15 08:04] LABS: ANION GAP 6 MMOL/L (8-16); BLOOD UREA NITROGEN 16 mg/dL (7-18); CALCIUM 7.9 mg/dL (8.5-10.1); CHLORIDE 99 mmol/L (98-107); CO2 29 mmol/L (21-32); CREATININE 0.8 mg/dL (0.55-1.3); GLUCOSE,RANDOM 194 mg/dL (74-106); MAGNESIUM 1.4 mg/dL (1.8-2.4); PHOSPHOROUS 3.1 mg/dL (2.5-4.9); POTASSIUM 3.9 mmol/L (3.5-5.1); SODIUM 134 mmol/L (136-145)
[2018-07-15 08:41] LABS: BASO % 0.3 % (0-2.0); EOS % 0.2 % (0-4.5); HEMATOCRIT 31.3 % (35.4-49); HEMOGLOBIN 10.9 GM/dL (11.7-16.9); LYMPH % 8.7 % (8-40); MCHC 34.9 g/dl (32.0-35.9); MEAN CELL VOLUME 88.8 fl (80-96); MEAN PLT VOLUME 7.8 fl (7.5-11.1); MONO % 8.9 % (3.8-10.2); NEUT % 81.9 % (42.8-82.8); PLATELET COUNT 192 K/MM3 (134-434); RBC 3.52 M/mm3 (4.00-5.60); RDW 13.9 % (11.9-15.9); WHITE BLOOD COUNT 10.7 K/mm3 (4.0-10.0)
[2018-07-15] MEDS ORDERED: POTASSIUM CHLORIDE TABS 10 MEQ TABLET.ER (FP) PO ONE (09:00)
[2018-07-15] MEDS ORDERED: MAGNESIUM SULF 50% (8.12 MEQ/2 ML-1 GM VIAL) IVPB ONE (09:30)
[2018-07-15] MEDS ORDERED: ENOXAPARIN NA (PORCINE) 40 MG/0.4 ML DISP.SYRIN SQ SCH (10:00)
--- NOTE | 2018-07-15 11:45 | ECHO ---
Name: ALEX NOGUERA Exam:Adult Echocardiogram Study Date: 07/15/2018 08:21 AM Age: 87 yrs Reason For Study: ASS Height: 73 in Weight: 250 lb BSA: 2.4 m2 MMode/2D Measurements & Calculations IVSd: 0.93 cm Ao root diam: 3.3 cm LVIDd: 4.2 cm LA dimension: 4.1 cm LVIDs: 2.9 cm LVPWd: 0.92 cm EDV(Teich): 77.5 ml LVOT diam: 2.3 cm ESV(Teich): 33.6 ml Doppler Measurements & Calculations MV E max marcus: 39.5 cm/sec Ao V2 max: 202.0 cm/sec MV A max marcus: 70.1 cm/sec Ao max P.3 mmHg MV E/A: 0.56 MV dec time: 0.23 sec MICHELLE(V,D): 2.3 cm2 LV V1 max P.5 mmHg MR max marcus: 317.6 cm/sec LV V1 mean P.2 mmHg MR max P.4 mmHg LV V1 max: 106.6 cm/sec LV V1 mean: 69.7 cm/sec LV V1 VTI: 17.4 cm SV(LVOT): 74.5 ml Med Peak E' Marcus: 5.4 cm/sec Med E/e': 7.4 Lat Peak E' Marcus: 10.2 cm/sec Lat E/e': 3.9 Procedure A two-dimensional transthoracic echocardiogram with color flow and Doppler was performed. The study w as technically difficult with many images being suboptimal in quality. Left Ventricle The left ventricle is normal in size. Left ventricular systolic function is normal. Ejection Fraction = 60- 65%. E/A reversal consistent with but not diagnostic of poor LV compliance. Right Ventricle The right ventricle is not well visualized. The right ventricle is grossly normal size. The right casie tricular systolic function is grossly normal. Atria The left atrium is mildly dilated. Right atrial size is normal. Mitral Valve There is mild mitral valve thickening. There is mild mitral annular calcification. There is mild mitr al regurgitation. Tricuspid Valve The tricuspid valve is normal. There is trace tricuspid regurgitation. Aortic Valve There is mild aortic sclerosis.;. The aortic valve opens well. No hemodynamically significant valvula r aortic stenosis. Trace aortic regurgitation. Pulmonic Valve The pulmonic valve is not well seen, but is grossly normal. Mild pulmonic valvular regurgitation. Great Vessels The aortic root is normal size. Pericardium/Pleura There is no pericardial effusion. Interpretation Summary Left ventricular systolic function is normal. Ejection Fraction = 60-65%. E/A reversal consistent with but not diagnostic of poor LV compliance The right ventricular systolic function is grossly normal. There is mild mitral annular calcification. There is mild mitral valve thickening. There is mild mitral regurgitation. There is trace tricuspid regurgitation. There is mild aortic sclerosis.; Trace aortic regurgitation. Mild pulmonic valvular regurgitation. There is no pericardial effusion. MD Jacinto Garcia 07/15/2018 11:45 AM
--- NOTE | 2018-07-15 11:52 | PN ---
Teaching Attending Note Name of Resident: Zenaida Rojas ATTENDING PHYSICIAN STATEMENT I saw and evaluated the patient. I reviewed the resident's note and discussed the case with the resident. I agree with the resident's findings and plan as documented. SUBJECTIVE: No fever or chills. reports the ulcer on his L lower leg for few months . recently finished a course of Abx and had debridement yesterday. denies fever at home. now he denies any SOB , CP , or GAUTHIER. No pain at surgical site. reports intermittent hematuria x 6 months . recently clots . reports being on ASA OBJECTIVE: NAD, MMM. npo facial droop CV: RRR. No MRG Lungs: CTAB Abd: soft, NT,ND, NL BS Ext : L leg with dressing from mid foot to just below the kne. edema on toes , nl sensation to light touch and can wiggle his toes. DP 2+ . RLE with no edema , Dp 2+ . no erythema . small 3 mm laceration on anterior zuñiga ASSESSMENT AND PLAN: 87 y/o gentleman with h/o HTN, HL, CAD, s/p stenting, b/l TKR, R hip replacement , Dm , hypothyroidism , and PVD who presented with generalized weakness after L lower leg ulcer debridement. 1- Infected L calf Ulcer s/p excisional debridment of tendons and fascia . Unfortunately, wound was not examined as the surgical dressing was just placed yesterday, but per dr. Duran description of the wound prior to surgery it had a purulent discharge. elevated white cound could be reactive after sx or due to infection. - Will ask Id to advise about Abx use if indicated - team to discuss with vascular - no need for IVF 2- Hematuria: x 6 months . DDx include malignancy ( renal vs bladder ). he denies trauma, and he even had it before randall placement yesterday. has no evidence of UTI on UA. now urine is yellow - check renal US - send urine to cytology - might need cystoscopy - consult urology 3- Dm : hold po meds and start SSI 4- h/o CAD : will confirm meds and resume 5- DVT Px: heparin. will stop if macroscopic hemauria develops
--- NOTE | 2018-07-15 12:16 | EKG ---
Test Reason : Blood Pressure : / mmHG Vent. Rate : 103 BPM Atrial Rate : 103 BPM P-R Int : 174 ms QRS Dur : 092 ms QT Int : 322 ms P-R-T Axes : 030 036 019 degrees QTc Int : 421 ms SINUS TACHYCARDIA WITH PREMATURE ATRIAL COMPLEXES OTHERWISE NORMAL ECG Confirmed by MD JUANPABLO, MICHAEL ([id number]) on 07/15/2018 12:16:06 PM Referred By: Confirmed By:MICHAEL GERONIMO MD
[2018-07-15] MEDS ORDERED: VANCOMYCIN HCL 1,500 MG in DEXTROSE 5%-WATER - 500 ML IVPB SCH (13:00)
--- NOTE | 2018-07-15 13:32 | CON.GU ---
Consult Consult Specialty:: Reason for Consultation:: 87 year old male presents with non healing leg ulcer - History of Present Illness Chief Complaint: gross hematuria History of Present Illness: gross hematuria on admission. now is improved. no pain. - History Source History Provided By: Patient Limitations to Obtaining History: No Limitations - Past Medical History Cardio/Vascular: Yes: CAD, Hyperlipdemia, Other (PAD) Renal/: Yes: BPH, Hematuria Endocrine: Yes: Diabetes Mellitus, Hypothyroidism - Alcohol/Substance Use Hx Alcohol Use: No - Smoking History Smoking history: Never smoked Have you smoked in the past 12 months: No Home Medications - Allergies Allergies/Adverse Reactions: Allergies Allergy/AdvReac Type Severity Reaction Status Date / Time No Known Allergies Allergy Verified 07/14/18 21:59 - Home Medications Home Medications: Ambulatory Orders Levothyroxine [Synthroid -] 150 mcg PO DAILY 05/14/18 Lipitor 40 mg PO DAILY 05/14/18 Metformin HCl ER 750 mg PO TID 05/14/18 Metoprolol Tartrate 25 mg PO DAILY 05/14/18 Ergocalciferol [Vitamin D2] 50,000 unit PO SA 05/23/18 Collagenase Clostridium Hist. [Santyl] 1 applic TP DAILY 30 Days #60 oint...g. 05/28/18 Clopidogrel Bisulfate [Plavix] 75 mg PO DAILY 07/15/18 Review of Systems - Review of Systems Genitourinary: reports: Hematuria. denies: Flank Pain, Incontinence, Pain Physical Exam- Vital Signs: Vital Signs Temperature 98.2 F 07/15/18 10:00 Pulse Rate 82 07/15/18 10:00 Respiratory Rate 18 07/15/18 10:00 Blood Pressure 111/57 L 07/15/18 10:00 O2 Sat by Pulse Oximetry (%) 97 07/15/18 08:36 Gastrointestinal: Yes: WNL, Normal Bowel Sounds Renal/: No: Bladder Distention, CVA Tenderness - Left, CVA Tenderness - Right Labs: CBC, BMP 07/15/18 06:30 07/15/18 06:30 Problem List - Problems (1) Gross hematuria Assessment/Plan: Ct scan ordered. gross hematuria has resolved. cystoscopy as outpatient Code(s): R31.0 - GROSS HEMATURIA
--- NOTE | 2018-07-15 14:15 | PN ---
Progress Note (short form) - Note Progress Note: ID consult dictated 87 yo man with NIDDM, chronic wound left leg for "months", he thinks at least since October s/p revascularization of the LLE by Dr Duran, followed by debridement of necrotic achilles tendon 05/26 he developed cellulitis at the site and was treated with augmentin in June the wound remained necrotic and he was admitted 07/14 for excisional debridement of the fascia/tendon he was discharged home on clindamycin but could not get upstairs to his apt so he returned to the ED and was admitted no fevers +fatigue I cannot examine the leg which has postop dressing on it but I spoke with Dr Duran who feels iv antibotics while in hospital is reasonable would agree with vancomycin/zosyn at this time f/u blood cultures woundto be examined in the am surgery Problem List - Problems (1) Infected wound Code(s): T14.8XXA - OTHER INJURY OF UNSPECIFIED BODY REGION, INITIAL ENCOUNTER; L08.9 - LOCAL INFECTION OF THE SKIN AND SUBCUTANEOUS TISSUE, UNSP (2) Gross hematuria Code(s): R31.0 - GROSS HEMATURIA
--- NOTE | 2018-07-15 15:04 | PN ---
Physical Exam: SUBJECTIVE: Patient seen and examined at bedside this morning. Patient is an 87 year old male with past medical history of HTN, HLD, DM and Hypothyroidism, presented with weakness and lightheadedness after having a Left achilles tendon excisional debridement yesterday. Patient reported he was discharged home yesterday afternoon, and upon arrival at his apartment, felt weak, unable to climb the stairs. He was brought back to the hospital where he was noted to be tachycardic with low blood pressure. Of note, patient had this left foot wound for about 4 months. He had stent place on his LLE by Dr. Duarn, followed by debridement. On 07/04, wound became infected and was given Augmentin. The cellulitis did not improve and patient underwent excisional debridement of the fascia/tendon (07/14). Patient was discharged home with Clindamycin. Patient also reported intermittent hematuria, of which he follows with Dr. Watters. He noted passage of blood clots the past few days, so scheduled an appointment for today. No gross hematuria noted in the urine today. Patient reports feeling better today, with no headache, dizziness, fever, chills, chest pain, SOB, palpitations. OBJECTIVE: Vital Signs Temperature 98.2 F 07/15/18 10:00 Pulse Rate 82 07/15/18 10:00 Respiratory Rate 18 07/15/18 10:00 Blood Pressure 111/57 L 07/15/18 10:00 O2 Sat by Pulse Oximetry (%) 97 07/15/18 08:36 GENERAL: The patient is awake, alert, and fully oriented, in no acute distress. HEAD: Normal with no signs of trauma. EYES: PERRLA, EOMI, sclera anicteric, conjunctiva clear. LUNGS: Breath sounds equal, clear to auscultation bilaterally. HEART: Regular rate and rhythm, S1, S2 without murmur, rub or gallop. ABDOMEN: Soft, nontender, nondistended, normoactive bowel sounds. EXTREMITIES: 2+ pulses, warm, well-perfused, no edema. LLE: surgical bandage from foot up to the knee NEUROLOGICAL: Cranial nerves II through XII grossly intact. Normal speech, gait not observed. PSYCH: Normal mood, normal affect. SKIN: Warm, dry, normal turgor, no rashes or lesions noted Laboratory Results - last 24 hr 07/15/18 07/15/18 07/15/18 00:33 00:33 00:49 WBC 13.7 H RBC 3.61 L Hgb 11.0 L Hct 31.7 L MCV 87.9 MCH 30.4 MCHC 34.6 RDW 13.9 Plt Count 229 MPV 7.7 Absolute Neuts (auto) 12.0 H Neutrophils % 87.7 H Lymphocytes % 3.7 L D Monocytes % 7.9 Eosinophils % 0.1 D Basophils % 0.6 Nucleated RBC % 0 Sodium 134 L Potassium 4.1 Chloride 98 Carbon Dioxide 29 Anion Gap 7 L BUN 16 Creatinine 1.1 Creat Clearance w eGFR > 60 POC Glucometer Random Glucose 250 H Lactic Acid 2.5 H* Calcium 7.9 L Phosphorus Magnesium Total Bilirubin 0.8 AST 16 ALT 18 Alkaline Phosphatase 80 Total Protein 6.3 L Albumin 2.6 L TSH Free T4 Urine Color Urine Appearance Urine pH Ur Specific [place] Urine Protein Urine Glucose (UA) Urine Ketones Urine Blood Urine Nitrite Urine Bilirubin Urine Urobilinogen Ur Leukocyte Esterase Urine WBC (Auto) Urine RBC (Auto) Ur Epithelial Cells Urine Mucus 07/15/18 07/15/18 07/15/18 00:53 06:30 06:30 WBC 10.7 H RBC 3.52 L Hgb 10.9 L Hct 31.3 L MCV 88.8 MCH 31.0 MCHC 34.9 RDW 13.9 Plt Count 192 MPV 7.8 Absolute Neuts (auto) 8.8 H Neutrophils % 81.9 Lymphocytes % 8.7 D Monocytes % 8.9 Eosinophils % 0.2 D Basophils % 0.3 Nucleated RBC % 0 Sodium 134 L Potassium 3.9 Chloride 99 Carbon Dioxide 29 Anion Gap 6 L BUN 16 Creatinine 0.8 Creat Clearance w eGFR > 60 POC Glucometer Random Glucose 194 H Lactic Acid Calcium 7.9 L Phosphorus 3.1 Magnesium 1.4 L Total Bilirubin AST ALT Alkaline Phosphatase Total Protein Albumin TSH 1.27 Free T4 Urine Color Ltyellow Urine Appearance Clear Urine pH 7.0 Ur Specific [place] 1.012 Urine Protein Negative Urine Glucose (UA) Negative Urine Ketones Negative Urine Blood 2+ H Urine Nitrite Negative Urine Bilirubin Negative Urine Urobilinogen 2.0 Ur Leukocyte Esterase Negative Urine WBC (Auto) 2 Urine RBC (Auto) 67 Ur Epithelial Cells Rare Urine Mucus Rare 07/15/18 07/15/18 07/15/18 06:30 06:30 06:59 WBC RBC Hgb Hct MCV MCH MCHC RDW Plt Count MPV Absolute Neuts (auto) Neutrophils % Lymphocytes % Monocytes % Eosinophils % Basophils % Nucleated RBC % Sodium Potassium Chloride Carbon Dioxide Anion Gap BUN Creatinine Creat Clearance w eGFR POC Glucometer 198 Random Glucose Lactic Acid 1.6 Calcium Phosphorus Magnesium Total Bilirubin AST ALT Alkaline Phosphatase Total Protein Albumin TSH Free T4 1.28 H Urine Color Urine Appearance Urine pH Ur Specific [place] Urine Protein Urine Glucose (UA) Urine Ketones Urine Blood Urine Nitrite Urine Bilirubin Urine Urobilinogen Ur Leukocyte Esterase Urine WBC (Auto) Urine RBC (Auto) Ur Epithelial Cells Urine Mucus Active Medications Generic Name Dose Route Start Last Admin Trade Name Freq PRN Reason Stop Dose Admin Heparin Sodium (Porcine) 5,000 unit 07/16/18 06:00 Heparin - SQ TID WALE Piperacillin Sod/Tazobactam 50 mls @ 100 mls/hr 07/15/18 18:00 Sod 3.375 gm/ Dextrose IVPB Q8H-IV [facility]ALE Protocol Vancomycin HCl 1,500 mg/ 500 mls @ 250 mls/hr 07/16/18 10:00 Dextrose IVPB Q24H [facility] Protocol Insulin Aspart 1 vial 07/15/18 07:00 07/15/18 14:07 Novolog Vial Sliding Scale - SQ Not Given ACHS WALE Protocol ASSESSMENT/PLAN: Patient is an 87 year old male with past medical history of HTN, HLD, DM and Hypothyroidism, presented with weakness and lightheadedness after having a Left achilles tendon excisional debridement yesterday. Patient also reported intermittent hematuria, of which he follows with Dr. Watters. #Left foot cellulitis s/p excisional debridement (07/14/18) -Blood cx pending -Lactic acidosis, resolved : 2.5 --> 1.6 -Will ask Dr. Duran if culture was sent -ID (Dr. Lo) consulted. Recommendations appreciated. -Start IV Vanc/Zosyn at this time -Wound to be examined in the morning by surgery. -Vascular surgery (Dr. Duran) consulted. #Hematuria: r/o cancer -UA: 2+Blood, 67 RBC -Urology (Dr. Watters) consulted. Recommendations appreciated. -CT abdomen and pelvis ordered. -Cystoscopy as outpatient #Hypertension -Continue home Metoprolol 25mg daily. #Hyperlipidemia -Continue Lipitor 40mg daily #DM -Insulin sliding scale ACHS -BGM ACHS #Hypothyroidism -Continue with Synthroid 150mcg daily -TSH 1.27, T4 1.28 #FEN -Not on any standing fluids -HypoMg, repleted -Routine bmp monitoring -Diabetic diet #Prophylaxis -Heparin 5000 units sq tid #Disposition -full code Visit type - Emergency Visit Emergency Visit: Yes ED Registration Date: 07/14/18 Care time: The patient presented to the Emergency Department on the above date and was hospitalized for further evaluation of their emergent condition. - New Patient This patient is new to me today: Yes Date on this admission: 07/15/18 - Critical Care Critical Care patient: No
--- NOTE | 2018-07-15 15:30 | CONS ---
DATE OF CONSULTATION: DATE OF DICTATION: 07/15/2018 INFECTIOUS DISEASE CONSULTATION REQUESTED BY: Hospitalist Service. This is an 87-year-old man with past medical history of diabetes, hypertension, hyperlipidemia, hypothyroidism. He is status post revascularization of the femoral and tibial arteries of his left leg followed by debridement of a necrotic Achilles tendon wound originally done May 26, subsequently developed a cellulitis of the area, was started on Augmentin in June, was admitted on July 14 for excisional debridement of the fascia and tendon of the same area. He was discharged home on clindamycin but was extremely weak and lightheaded and unable to ambulate, and he was unable to walk up the stairs to his apartment, and his friend brought him back to the emergency room. He has no fevers or chills. He has no nausea or vomiting. He does report since being on the Augmentin he has felt very weak. I am asked to see him for possible antibiotic use. PAST MEDICAL HISTORY: Notable for diabetes, hypertension, hyperlipidemia, hypothyroidism, recent diagnosis of thyroid cancer in October 2017, status post thyroidectomy at [facility]. He is status post a right hip placement and bilateral knee replacements. SOCIAL HISTORY: There is no history of cigarette, alcohol, or substance use. He lives alone. FAMILY HISTORY: Notable for diabetes. ALLERGIES: He has no known drug allergies. MEDICATIONS: As an outpatient include levothyroxine, Lipitor, metformin, metoprolol, aspirin, vitamin D, and Santyl. REVIEW OF SYSTEMS: Notable for fatigue. PHYSICAL EXAMINATION: Vital Signs: He is afebrile, temperature is 98.2, pulse of 82, blood pressure 111/57, respiratory rate is 18. He is saturating 97% on room air. HEENT: He is normocephalic. His eyes are anicteric. Neck: Supple. His neck is well healed from the thyroid surgery. Lungs: Clear to auscultation. Heart: Regular rate and rhythm. Abdomen: Soft, nontender. Extremities: The left leg has a postoperative dressing. I cannot exam it. He can wiggle his toes. LABORATORIES: Labs are notable for a white count of 10.7, hemoglobin 10.9, platelets 192. BUN 16, creatinine 1.8. Lactic acid was 2.5, repeat of 1.6. Urinalysis is notable for 67 white cells. Blood cultures are pending. Chest x-ray done on July 15 is unremarkable. In summary, this is an elderly man status post excisional debridement of Achilles tendon and fascia of his left lower extremity. He reports by history that he has had a chronic wound there that has progressively worsened leading to revascularization and subsequent surgery. I cannot examine the leg, which has a postoperative dressing on it, but I spoke with Dr. Duran who feels IV antibiotics while in the hospital would be reasonable at this point. Would agree with vancomycin and Zosyn. Followup his blood cultures. Hopefully, the wound can be examined in the morning. SHIRLEY TONY M.D. [id number]
--- NOTE | 2018-07-15 19:51 | CONSULT ---
Consult - text type - Consultation Consultation Note: patient underwent debridement of left calf wound yesterday in [facility]. he was unable to climb stairs in his home and returned to ED> I was never called. He is pain free, afebrile and no anemia. Left calf dressing is clean and dry. I will change dressing tomorrow.
[2018-07-15] MEDS: ATORVASTATIN CA 40 MG TABLET (FP) PO SCH (21:07)
[2018-07-16] MEDS ORDERED: DEXTROSE 5%-WATER - 50 ML IVPB ONE ×3 (01:03→19:07)
[2018-07-16] MEDS ORDERED: PIPERACILLIN/TAZOBACTAM 3.375 GM VIAL IVPB ONE ×3 (01:03→19:06)
[2018-07-16] MEDS: PIPERACILLIN/TAZOB 3.375 GM 3.375 GM in DEXTROSE 5%-WATER - 50 ML IVPB SCH ×3 (01:37→19:23)
[2018-07-16] MEDS ORDERED: PIPERACILLIN/TAZOB 3.375 GM 3.375 GM in DEXTROSE 5%-WATER - 50 ML IVPB SCH (03:00)
[2018-07-16] MEDS: HEPARIN NA (PORCINE) 5,000 UNITS/ML 1ML VIAL SQ SCH ×3 (06:22→21:21)
[2018-07-16] MEDS: LEVOTHYROXINE NA 75 MCG TABLET (FP) PO SCH (06:24)
[2018-07-16 07:22] LABS: BASO % 0.6 % (0-2.0); EOS % 2.3 % (0-4.5); HEMATOCRIT 29.7 % (35.4-49); HEMOGLOBIN 10.4 GM/dL (11.7-16.9); LYMPH % 13.2 % (8-40); MCH 30.6 pg (25.7-33.7); MCHC 34.9 g/dl (32.0-35.9); MEAN CELL VOLUME 87.6 fl (80-96); MEAN PLT VOLUME 7.8 fl (7.5-11.1); MONO % 12.1 % (3.8-10.2); NEUT % 71.8 % (42.8-82.8); PLATELET COUNT 200 K/MM3 (134-434); RBC 3.39 M/mm3 (4.00-5.60); RDW 13.9 % (11.9-15.9); WHITE BLOOD COUNT 5.7 K/mm3 (4.0-10.0)
[2018-07-16 07:52] LABS: ANION GAP 6 MMOL/L (8-16); BLOOD UREA NITROGEN 10 mg/dL (7-18); CALCIUM 7.5 mg/dL (8.5-10.1); CHLORIDE 102 mmol/L (98-107); CO2 29 mmol/L (21-32); CREATININE 0.7 mg/dL (0.55-1.3); GLUCOSE,RANDOM 144 mg/dL (74-106); MAGNESIUM 1.7 mg/dL (1.8-2.4); PHOSPHOROUS 3.2 mg/dL (2.5-4.9); SODIUM 137 mmol/L (136-145)
[2018-07-16] MEDS: INSULIN SLIDING SCALE (NOVOLOG) 1 VIAL SQ SCH ×4 (08:29→21:21)
[2018-07-16] MEDS ORDERED: MAGNESIUM SULF 50% (8.12 MEQ/2 ML-1 GM VIAL) IVPB ONE (09:05)
[2018-07-16] MEDS: CLOPIDOGREL BISULFATE 75 MG TABLET (FP) PO SCH (09:50)
[2018-07-16] MEDS: metoPROLOL SUCCINATE 25 MG TAB.SR.24H (FP) PO SCH (09:50)
--- NOTE | 2018-07-16 11:56 | PN ---
Progress Note (short form) - Note Progress Note: POD #2 s/p LLE debridement Patient had procedure done as out-patient. Unable to ascend stairs at home. Returned to [facility] ED. Dressing changed on rounds today with Dr. Durna. AVSS. Afebrile. Surgery PAs to place wound VAC tomorrow while on rounds Supplies ordered and ask that you place them at patient's bedside. Thank you.
[2018-07-16] MEDS: VANCOMYCIN HCL 1,500 MG in DEXTROSE 5%-WATER - 500 ML IVPB SCH (12:05)
[2018-07-16] MEDS ORDERED: INSULIN (NOVOLOG) ASPART 100 UNITS/ML 10ML VIAL ONE ×2 (12:08→21:19)
--- NOTE | 2018-07-16 13:41 | PN ---
Teaching Attending Note Name of Resident: Zenaida Rojas ATTENDING PHYSICIAN STATEMENT I saw and evaluated the patient. I reviewed the resident's note and discussed the case with the resident. I agree with the resident's findings and plan as documented. SUBJECTIVE: OBJECTIVE: Vital Signs Temperature 98.2 F 07/16/18 09:55 Pulse Rate 101 H 07/16/18 09:55 Respiratory Rate 18 07/16/18 09:55 Blood Pressure 144/77 07/16/18 09:55 O2 Sat by Pulse Oximetry (%) 97 07/15/18 08:36 Initial Vital Signs Temp Pulse Resp BP Pulse Ox 98.0 F 128 H 16 92/53 L 100 07/14/18 21:43 07/14/18 21:43 07/14/18 21:43 07/14/18 21:43 07/14/18 21:43 CBCD WBC 5.7 K/mm3 (4.0-10.0) 07/16/18 06:00 RBC 3.39 M/mm3 (4.00-5.60) L 07/16/18 06:00 Hgb 10.4 GM/dL (11.7-16.9) L 07/16/18 06:00 Hct 29.7 % (35.4-49) L 07/16/18 06:00 MCV 87.6 fl (80-96) 07/16/18 06:00 MCHC 34.9 g/dl (32.0-35.9) 07/16/18 06:00 RDW 13.9 % (11.9-15.9) 07/16/18 06:00 Plt Count 200 K/MM3 (134-434) 07/16/18 06:00 MPV 7.8 fl (7.5-11.1) 07/16/18 06:00 GENERAL: The patient is awake, alert, and fully oriented, in no acute distress. HEAD: Normal with no signs of trauma. EYES: PERRLA, EOMI, sclera anicteric, conjunctiva clear. LUNGS: Breath sounds equal, clear to auscultation bilaterally. HEART: Regular rate and rhythm, S1, S2 without murmur, rub or gallop. ABDOMEN: Soft, nontender, nondistended, normoactive bowel sounds. EXTREMITIES: 2+ pulses, warm, well-perfused, no edema. LLE: surgical bandage from foot up to the knee NEUROLOGICAL: Cranial nerves II through XII grossly intact. Normal speech, gait not observed. PSYCH: Normal mood, normal affect. SKIN: Warm, dry, normal turgor, no rashes or lesions noted CMP Sodium 137 mmol/L (136-145) 07/16/18 06:00 Potassium 4.0 mmol/L (3.5-5.1) 07/16/18 06:00 Chloride 102 mmol/L (98-107) 07/16/18 06:00 Carbon Dioxide 29 mmol/L (21-32) 07/16/18 06:00 Anion Gap 6 MMOL/L (8-16) L 07/16/18 06:00 BUN 10 mg/dL (7-18) 07/16/18 06:00 Creatinine 0.7 mg/dL (0.55-1.3) 07/16/18 06:00 Creat Clearance w eGFR > 60 (>60) 07/16/18 06:00 Random Glucose 144 mg/dL (74-106) H 07/16/18 06:00 Calcium 7.5 mg/dL (8.5-10.1) L 07/16/18 06:00 Total Bilirubin 0.8 mg/dL (0.2-1) 07/15/18 00:33 AST 16 U/L (15-37) 07/15/18 00:33 ALT 18 U/L (13-61) 07/15/18 00:33 Alkaline Phosphatase 80 U/L (45-117) 07/15/18 00:33 Total Protein 6.3 g/dl (6.4-8.2) L 07/15/18 00:33 Albumin 2.6 g/dl (3.4-5.0) L 07/15/18 00:33 Current Medications Generic Name Dose Route Start Last Admin Trade Name Freq PRN Reason Stop Dose Admin Atorvastatin Calcium 40 mg 07/15/18 22:00 07/15/18 21:07 Lipitor - PO 40 mg HS WALE Administration Clopidogrel Bisulfate 75 mg 07/16/18 10:00 07/16/18 09:50 Plavix - PO 75 mg DAILY WALE Administration Ergocalciferol 50,000 unit 07/19/18 10:00 Drisdol - PO Sa@1000 WALE Heparin Sodium (Porcine) 5,000 unit 07/16/18 06:00 07/16/18 06:22 Heparin - SQ 5,000 unit TID WALE Administration Piperacillin Sod/Tazobactam 50 mls @ 100 mls/hr 07/15/18 18:00 07/16/18 09:50 Sod 3.375 gm/ Dextrose IVPB 100 mls/hr Q8H-IV WALE Administration Protocol Vancomycin HCl 1,500 mg/ 500 mls @ 250 mls/hr 07/16/18 10:00 07/16/18 12:05 Dextrose IVPB 250 mls/hr Q24H WALE Administration Protocol Insulin Aspart 1 vial 07/15/18 07:00 07/16/18 12:11 Novolog Vial Sliding Scale - SQ 4 unit ACHS WALE Administration Protocol Levothyroxine Sodium 150 mcg 07/16/18 07:00 07/16/18 06:24 Synthroid - PO 150 mcg AM WALE Administration Metoprolol Succinate 25 mg 07/16/18 10:00 07/16/18 09:50 Toprol Xl - PO 25 mg DAILY WALE Administration Home Medications Medication Instructions Recorded Levothyroxine [Synthroid -] 150 mcg PO DAILY 05/14/18 Lipitor 40 mg PO DAILY 05/14/18 Metformin HCl ER 750 mg PO TID 05/14/18 Metoprolol Tartrate 25 mg PO DAILY 05/14/18 Ergocalciferol [Vitamin D2] 50,000 unit PO SA 05/23/18 Collagenase Clostridium Hist. 1 applic TP DAILY 30 Days #60 05/28/18 [Santyl] oint...g. Clopidogrel Bisulfate [Plavix] 75 mg PO DAILY 07/15/18 ASSESSMENT AND PLAN: 87 y/o gentleman with h/o HTN, HL, CAD, s/p stenting, b/l TKR, R hip replacement , Dm , hypothyroidism , and PVD who presented with generalized weakness after L lower leg ulcer debridement. # Infected L calf Ulcer s/p excisional debridment of tendons and fascia, dr. Duran on the case. on IV vancomycin and Zosyn as per ID. # Hematuria: Urology consult Dr. Bains # Dm : hold po meds and start SSI # h/o CAD : continue home meds. DVT Px: heparin will hold for hemauria if needed.
--- NOTE | 2018-07-16 14:27 | PN ---
Physical Exam: SUBJECTIVE: Patient seen and examined at bedside this morning. No acute events overnight. Patient has no new complaints. Denies any fever, chills, leg pain, headache, dizziness, chest pain, SOB, abdominal pain, diarrhea, urinary symptoms. OBJECTIVE: Vital Signs Period Temp Pulse Resp BP Sys/De La Cruz Pulse Ox Last 24 Hr 97 F-98.5 F 84-101 16-20 113-144/63-77 GENERAL: The patient is awake, alert, and fully oriented, in no acute distress. HEAD: Normal with no signs of trauma. EYES: PERRLA, EOMI, sclera anicteric, conjunctiva clear. LUNGS: Breath sounds equal, clear to auscultation bilaterally. HEART: Regular rate and rhythm, S1, S2 without murmur, rub or gallop. ABDOMEN: Soft, nontender, nondistended, normoactive bowel sounds. EXTREMITIES: 2+ pulses, warm, well-perfused, no edema. LLE: surgical bandage from foot up to the knee NEUROLOGICAL: Cranial nerves II through XII grossly intact. Normal speech, gait not observed. PSYCH: Normal mood, normal affect. SKIN: Warm, dry, normal turgor, no rashes or lesions noted Laboratory Results - last 24 hr 07/15/18 07/15/18 07/16/18 17:46 21:04 06:00 WBC 5.7 RBC 3.39 L Hgb 10.4 L Hct 29.7 L MCV 87.6 MCH 30.6 MCHC 34.9 RDW 13.9 Plt Count 200 MPV 7.8 Absolute Neuts (auto) 4.1 Neutrophils % 71.8 Lymphocytes % 13.2 D Monocytes % 12.1 H Eosinophils % 2.3 D Basophils % 0.6 Nucleated RBC % 0 Sodium Potassium Chloride Carbon Dioxide Anion Gap BUN Creatinine Creat Clearance w eGFR POC Glucometer 201 160 Random Glucose Calcium Phosphorus Magnesium 07/16/18 07/16/18 07/16/18 06:00 06:20 12:03 WBC RBC Hgb Hct MCV MCH MCHC RDW Plt Count MPV Absolute Neuts (auto) Neutrophils % Lymphocytes % Monocytes % Eosinophils % Basophils % Nucleated RBC % Sodium 137 Potassium 4.0 Chloride 102 Carbon Dioxide 29 Anion Gap 6 L BUN 10 Creatinine 0.7 Creat Clearance w eGFR > 60 POC Glucometer 165 245 Random Glucose 144 H Calcium 7.5 L Phosphorus 3.2 Magnesium 1.7 L Active Medications Generic Name Dose Route Start Last Admin Trade Name Freq PRN Reason Stop Dose Admin Atorvastatin Calcium 40 mg 07/15/18 22:00 07/15/18 21:07 Lipitor - PO 40 mg HS WALE Administration Clopidogrel Bisulfate 75 mg 07/16/18 10:00 07/16/18 09:50 Plavix - PO 75 mg DAILY WALE Administration Ergocalciferol 50,000 unit 07/19/18 10:00 Drisdol - PO Sa@1000 WALE Heparin Sodium (Porcine) 5,000 unit 07/16/18 06:00 07/16/18 06:22 Heparin - SQ 5,000 unit TID WALE Administration Piperacillin Sod/Tazobactam 50 mls @ 100 mls/hr 07/15/18 18:00 07/16/18 09:50 Sod 3.375 gm/ Dextrose IVPB 100 mls/hr Q8H-IV WALE Administration Protocol Vancomycin HCl 1,500 mg/ 500 mls @ 250 mls/hr 07/16/18 10:00 07/16/18 12:05 Dextrose IVPB 250 mls/hr Q24H WALE Administration Protocol Insulin Aspart 1 vial 07/15/18 07:00 07/16/18 12:11 Novolog Vial Sliding Scale - SQ 4 unit ACHS WALE Administration Protocol Levothyroxine Sodium 150 mcg 07/16/18 07:00 07/16/18 06:24 Synthroid - PO 150 mcg AM WALE Administration Metoprolol Succinate 25 mg 07/16/18 10:00 07/16/18 09:50 Toprol Xl - PO 25 mg DAILY WALE Administration -CXR: No evidence of acute pulmonary disease -Echo: LV systolic function is normal. EF = 60-65%. E/A reversal consistent with but not diagnostic of poor LV compliance. The RV systolic function is grossly normal. Mild mitral annular calcification. Mild mitral valve thickening. Mild MR. Trace TR. Mild aortic sclerosis. Trace AR. Mild pulmonic valvular regurgitation. No pericardial effusion. ASSESSMENT/PLAN: Patient is an 87 year old male with past medical history of HTN, HLD, DM and Hypothyroidism, presented with weakness and lightheadedness after having a Left achilles tendon excisional debridement yesterday. Patient also reported intermittent hematuria, of which he follows with Dr. Watters. #Left foot cellulitis s/p excisional debridement (07/14/18) -Blood cx - no growth for 24 hours -Lactic acidosis, resolved : 2.5 --> 1.6 -ID (Dr. Lo) consulted. Recommendations appreciated. -Start IV Vancomycin 1500mg daily and Zosyn 3.375 q8h Day 2 -Vascular surgery (Dr. Duran) consulted. Recommendations appreciated. -Dressing changed today -Surgery PAs to place wound VAC tomorrow while on rounds #Hematuria: r/o cancer -UA: 2+Blood, 67 RBC -Urology (Dr. Watters) consulted. Recommendations appreciated. -CT abdomen and pelvis done -Cystoscopy as outpatient #Hypertension -Continue home Metoprolol 25mg daily. #Hyperlipidemia -Continue Lipitor 40mg daily #DM -Insulin sliding scale ACHS -BGM ACHS #Hypothyroidism -Continue with Synthroid 150mcg daily -TSH 1.27, T4 1.28 #FEN -Not on any standing fluids -HypoMg, repleted -Routine bmp monitoring -Diabetic diet #Prophylaxis -Heparin 5000 units sq tid #Disposition -full code Visit type - Emergency Visit Emergency Visit: Yes ED Registration Date: 07/16/18 Care time: The patient presented to the Emergency Department on the above date and was hospitalized for further evaluation of their emergent condition. - New Patient This patient is new to me today: No - Critical Care Critical Care patient: No
[2018-07-16] MEDS ORDERED: PT OWN MED DRAWER 7, Y5N ONE (18:19)
[2018-07-16] MEDS: ATORVASTATIN CA 40 MG TABLET (FP) PO SCH (21:21)
[2018-07-17] MEDS ORDERED: DEXTROSE 5%-WATER - 50 ML IVPB ONE ×3 (01:41→16:25)
[2018-07-17] MEDS ORDERED: PIPERACILLIN/TAZOBACTAM 3.375 GM VIAL IVPB ONE ×3 (01:41→16:25)
[2018-07-17] MEDS: PIPERACILLIN/TAZOB 3.375 GM 3.375 GM in DEXTROSE 5%-WATER - 50 ML IVPB SCH ×3 (01:49→18:22)
[2018-07-17] MEDS: HEPARIN NA (PORCINE) 5,000 UNITS/ML 1ML VIAL SQ SCH ×4 (06:16→21:08)
[2018-07-17] MEDS: LEVOTHYROXINE NA 75 MCG TABLET (FP) PO SCH (06:16)
[2018-07-17] MEDS: INSULIN SLIDING SCALE (NOVOLOG) 1 VIAL SQ SCH ×5 (07:00→21:09)
[2018-07-17 07:52] LABS: HEMATOCRIT 29.1 % (35.4-49); HEMOGLOBIN 10.3 GM/dL (11.7-16.9); MCH 30.7 pg (25.7-33.7); MCHC 35.3 g/dl (32.0-35.9); MEAN CELL VOLUME 87.1 fl (80-96); MEAN PLT VOLUME 7.7 fl (7.5-11.1); PLATELET COUNT 205 K/MM3 (134-434); RBC 3.34 M/mm3 (4.00-5.60); WHITE BLOOD COUNT 5.5 K/mm3 (4.0-10.0)
[2018-07-17 08:16] LABS: ANION GAP 5 MMOL/L (8-16); BLOOD UREA NITROGEN 13 mg/dL (7-18); CALCIUM 7.7 mg/dL (8.5-10.1); CHLORIDE 105 mmol/L (98-107); CO2 27 mmol/L (21-32); CREATININE 0.8 mg/dL (0.55-1.3); GLUCOSE,RANDOM 145 mg/dL (74-106); MAGNESIUM 1.9 mg/dL (1.8-2.4); POTASSIUM 4.1 mmol/L (3.5-5.1); SODIUM 138 mmol/L (136-145)
[2018-07-17] MEDS: metoPROLOL SUCCINATE 25 MG TAB.SR.24H (FP) PO SCH (10:16)
[2018-07-17] MEDS: CLOPIDOGREL BISULFATE 75 MG TABLET (FP) PO SCH (10:16)
[2018-07-17] MEDS: VANCOMYCIN HCL 1,500 MG in DEXTROSE 5%-WATER - 500 ML IVPB SCH (11:26)
--- NOTE | 2018-07-17 16:08 | PN ---
Progress Note (short form) - Note Progress Note: Wound vac placed on L posterior calf. Black foam to wound bed with bridge medially/anteriorly on calf to avoid pressure point of diskette. Vac set to 125mmHg. Wound vac paperwork completed and faxed. die set up worker notified, VNS being set up for Saturday pending d/c
--- NOTE | 2018-07-17 16:41 | PN ---
Physical Exam: SUBJECTIVE: Patient seen and examined at bedside this morning. No acute events overnight. VAC wound change done today by surgery. OBJECTIVE: Vital Signs Temperature 98.3 F 07/17/18 15:24 Pulse Rate 83 07/17/18 15:24 Respiratory Rate 18 07/17/18 15:24 Blood Pressure 134/73 07/17/18 15:24 O2 Sat by Pulse Oximetry (%) 98 07/17/18 09:00 GENERAL: The patient is awake, alert, and fully oriented, in no acute distress. HEAD: Normal with no signs of trauma. NECK: Trachea midline, full range of motion, supple. LUNGS: Breath sounds equal, clear to auscultation bilaterally. HEART: Regular rate and rhythm, S1, S2 without murmur, rub or gallop. ABDOMEN: Soft, nontender, nondistended, normoactive bowel sounds. EXTREMITIES: 2+ pulses, warm, well-perfused, no edema. NEUROLOGICAL: Cranial nerves II through XII grossly intact. Normal speech, gait not observed. PSYCH: Normal mood, normal affect. SKIN: Warm, dry, normal turgor, no rashes or lesions noted Laboratory Results - last 24 hr 07/16/18 07/16/18 07/17/18 18:25 21:17 05:36 WBC RBC Hgb Hct MCV MCH MCHC RDW Plt Count MPV Sodium Potassium Chloride Carbon Dioxide Anion Gap BUN Creatinine Creat Clearance w eGFR POC Glucometer 196 194 152 Random Glucose Calcium Phosphorus Magnesium 07/17/18 07/17/18 07/17/18 06:00 06:00 11:47 WBC 5.5 RBC 3.34 L Hgb 10.3 L Hct 29.1 L MCV 87.1 MCH 30.7 MCHC 35.3 RDW 14.0 Plt Count 205 MPV 7.7 Sodium 138 Potassium 4.1 Chloride 105 Carbon Dioxide 27 Anion Gap 5 L BUN 13 Creatinine 0.8 Creat Clearance w eGFR > 60 POC Glucometer 248 Random Glucose 145 H Calcium 7.7 L Phosphorus 3.0 Magnesium 1.9 Active Medications Generic Name Dose Route Start Last Admin Trade Name Freq PRN Reason Stop Dose Admin Atorvastatin Calcium 40 mg 07/15/18 22:00 07/16/18 21:21 Lipitor - PO 40 mg HS WALE Administration Clopidogrel Bisulfate 75 mg 07/16/18 10:00 07/17/18 10:16 Plavix - PO 75 mg DAILY WALE Administration Ergocalciferol 50,000 unit 07/19/18 10:00 Drisdol - PO Sa@1000 WALE Heparin Sodium (Porcine) 5,000 unit 07/16/18 06:00 07/17/18 13:28 Heparin - SQ 5,000 unit TID WALE Administration Piperacillin Sod/Tazobactam 50 mls @ 100 mls/hr 07/15/18 18:00 07/17/18 10:16 Sod 3.375 gm/ Dextrose IVPB 100 mls/hr Q8H-IV WALE Administration Protocol Vancomycin HCl 1,500 mg/ 500 mls @ 250 mls/hr 07/16/18 10:00 07/17/18 11:26 Dextrose IVPB 250 mls/hr Q24H WALE Administration Protocol Insulin Aspart 1 vial 07/15/18 07:00 07/17/18 11:49 Novolog Vial Sliding Scale - SQ 4 unit ACHS WALE Administration Protocol Levothyroxine Sodium 150 mcg 07/16/18 07:00 07/17/18 06:16 Synthroid - PO 150 mcg AM WALE Administration Metoprolol Succinate 25 mg 07/16/18 10:00 07/17/18 10:16 Toprol Xl - PO 25 mg DAILY WALE Administration -CXR: No evidence of acute pulmonary disease -Echo: LV systolic function is normal. EF = 60-65%. E/A reversal consistent with but not diagnostic of poor LV compliance. The RV systolic function is grossly normal. Mild mitral annular calcification. Mild mitral valve thickening. Mild MR. Trace TR. Mild aortic sclerosis. Trace AR. Mild pulmonic valvular regurgitation. No pericardial effusion. -CT abdomen and pelvis: 2mm non-obstructing calculus within the right kidney. Bilateral renal cysts. No evidence of urinary tract masses or obstructive uropathy. No acute pathology within abdomen or pelvis. ASSESSMENT/PLAN: Patient is an 87 year old male with past medical history of HTN, HLD, DM and Hypothyroidism, presented with weakness and lightheadedness after having a Left achilles tendon excisional debridement yesterday. Patient also reported intermittent hematuria, of which he follows with Dr. Watters. #Left foot cellulitis s/p excisional debridement (07/14/18) -Blood cx - no growth for 24 hours -Lactic acidosis, resolved : 2.5 --> 1.6 -ID (Dr. Lo) consulted. Recommendations appreciated. -IV Vancomycin 1500mg daily and Zosyn 3.375 q8h Day 3 -Would start PO Clindamycin upon discharge and follow-up with Dr. Duran. -Vascular surgery (Dr. Duran) consulted. Recommendations appreciated. -Wound vac placed on left posterior calf. -caseworker notified, VNS being set up for Saturday pending dispo #Hematuria: r/o cancer -UA on admission: 2+Blood, 67 RBC -Urology (Dr. Watters) consulted. Recommendations appreciated. -CT abdomen and pelvis: 2mm non-obstructing calculus within the right kidney. Bilateral renal cysts. No evidence of urinary tract masses or obstructive uropathy. No acute pathology within abdomen or pelvis. -Cystoscopy as outpatient #Hypertension -Continue home Metoprolol 25mg daily. #Hyperlipidemia -Continue Lipitor 40mg daily #DM -Insulin sliding scale ACHS -BGM ACHS #Hypothyroidism -Continue with Synthroid 150mcg daily -TSH 1.27, T4 1.28 #FEN -Not on any standing fluids -HypoMg, repleted -Routine bmp monitoring -Diabetic diet #Prophylaxis -Heparin 5000 units sq tid #Disposition -full code Visit type - Emergency Visit Emergency Visit: Yes ED Registration Date: 07/16/18 Care time: The patient presented to the Emergency Department on the above date and was hospitalized for further evaluation of their emergent condition. - New Patient This patient is new to me today: No - Critical Care Critical Care patient: No
--- NOTE | 2018-07-17 16:51 | PN ---
Progress Note (short form) - Note Progress Note: wound examined with surgery vac placed extensive wound, no drainage, no pus, no erythema +exposed tendon Vital Signs Period Temp Pulse Resp BP Sys/De La Cruz Pulse Ox Last 24 Hr 98.3 F-98.6 F 68-83 18-20 112-134/52-73 98 cor-rrr llungs clear abd soft,nt wound as above CBC, BMP 07/17/18 06:00 07/17/18 06:00 a/p s/p debridement of infected achilles tendon- no cultures available wound looks clean, would resume po clindamycin as per Dr Duran with f/u with him d/w resident and surgical PA vac per surgery Problem List - Problems (1) Infected wound Code(s): T14.8XXA - OTHER INJURY OF UNSPECIFIED BODY REGION, INITIAL ENCOUNTER; L08.9 - LOCAL INFECTION OF THE SKIN AND SUBCUTANEOUS TISSUE, UNSP (2) Gross hematuria Code(s): R31.0 - GROSS HEMATURIA
--- NOTE | 2018-07-17 18:51 | PN ---
Teaching Attending Note Name of Resident: Zenaida Rojas ATTENDING PHYSICIAN STATEMENT I saw and evaluated the patient. I reviewed the resident's note and discussed the case with the resident. I agree with the resident's findings and plan as documented. SUBJECTIVE: Patient is feeling better with no acute distress. OBJECTIVE: Vital Signs Temperature 98.7 F 07/17/18 16:30 Pulse Rate 83 07/17/18 16:30 Respiratory Rate 18 07/17/18 16:30 Blood Pressure 115/67 07/17/18 16:30 O2 Sat by Pulse Oximetry (%) 98 07/17/18 09:00 GENERAL: The patient is awake, alert, and fully oriented, in no acute distress. HEAD: Normal with no signs of trauma. EYES: PERRLA, EOMI, sclera anicteric, conjunctiva clear. LUNGS: Breath sounds equal, clear to auscultation bilaterally. HEART: Regular rate and rhythm, S1, S2 without murmur, rub or gallop. ABDOMEN: Soft, nontender, nondistended, normoactive bowel sounds. EXTREMITIES: 2+ pulses, warm, well-perfused, no edema. LLE: positve for wound vac. NEUROLOGICAL: Cranial nerves II through XII grossly intact. Normal speech, gait not observed. PSYCH: Normal mood, normal affect. SKIN: Warm, dry, normal turgor, no rashes or lesions noted CBCD WBC 5.5 K/mm3 (4.0-10.0) 07/17/18 06:00 RBC 3.34 M/mm3 (4.00-5.60) L 07/17/18 06:00 Hgb 10.3 GM/dL (11.7-16.9) L 07/17/18 06:00 Hct 29.1 % (35.4-49) L 07/17/18 06:00 MCV 87.1 fl (80-96) 07/17/18 06:00 MCHC 35.3 g/dl (32.0-35.9) 07/17/18 06:00 RDW 14.0 % (11.9-15.9) 07/17/18 06:00 Plt Count 205 K/MM3 (134-434) 07/17/18 06:00 MPV 7.7 fl (7.5-11.1) 07/17/18 06:00 CMP Sodium 138 mmol/L (136-145) 07/17/18 06:00 Potassium 4.1 mmol/L (3.5-5.1) 07/17/18 06:00 Chloride 105 mmol/L (98-107) 07/17/18 06:00 Carbon Dioxide 27 mmol/L (21-32) 07/17/18 06:00 Anion Gap 5 MMOL/L (8-16) L 07/17/18 06:00 BUN 13 mg/dL (7-18) 07/17/18 06:00 Creatinine 0.8 mg/dL (0.55-1.3) 07/17/18 06:00 Creat Clearance w eGFR > 60 (>60) 07/17/18 06:00 Random Glucose 145 mg/dL (74-106) H 07/17/18 06:00 Calcium 7.7 mg/dL (8.5-10.1) L 07/17/18 06:00 Total Bilirubin 0.8 mg/dL (0.2-1) 07/15/18 00:33 AST 16 U/L (15-37) 07/15/18 00:33 ALT 18 U/L (13-61) 07/15/18 00:33 Alkaline Phosphatase 80 U/L (45-117) 07/15/18 00:33 Total Protein 6.3 g/dl (6.4-8.2) L 07/15/18 00:33 Albumin 2.6 g/dl (3.4-5.0) L 07/15/18 00:33 Current Medications Generic Name Dose Route Start Last Admin Trade Name Dorcas PRN Reason Stop Dose Admin Atorvastatin Calcium 40 mg 07/15/18 22:00 07/16/18 21:21 Lipitor - PO 40 mg HS WALE Administration Clopidogrel Bisulfate 75 mg 07/16/18 10:00 07/17/18 10:16 Plavix - PO 75 mg DAILY WALE Administration Ergocalciferol 50,000 unit 07/19/18 10:00 Drisdol - PO Sa@1000 WALE Heparin Sodium (Porcine) 5,000 unit 07/16/18 06:00 07/17/18 13:28 Heparin - SQ 5,000 unit TID WALE Administration Piperacillin Sod/Tazobactam 50 mls @ 100 mls/hr 07/15/18 18:00 07/17/18 18:22 Sod 3.375 gm/ Dextrose IVPB 100 mls/hr Q8H-IV WALE Administration Protocol Vancomycin HCl 1,500 mg/ 500 mls @ 250 mls/hr 07/16/18 10:00 07/17/18 11:26 Dextrose IVPB 250 mls/hr Q24H WALE Administration Protocol Insulin Aspart 1 vial 07/15/18 07:00 07/17/18 18:23 Novolog Vial Sliding Scale - SQ Not Given ACHS WALE Protocol Levothyroxine Sodium 150 mcg 07/16/18 07:00 07/17/18 06:16 Synthroid - PO 150 mcg AM WALE Administration Metoprolol Succinate 25 mg 07/16/18 10:00 07/17/18 10:16 Toprol Xl - PO 25 mg DAILY WALE Administration Home Medications Medication Instructions Recorded Levothyroxine [Synthroid -] 150 mcg PO DAILY 05/14/18 Lipitor 40 mg PO DAILY 05/14/18 Metformin HCl ER 750 mg PO TID 05/14/18 Metoprolol Tartrate 25 mg PO DAILY 05/14/18 Ergocalciferol [Vitamin D2] 50,000 unit PO SA 05/23/18 Collagenase Clostridium Hist. 1 applic TP DAILY 30 Days #60 05/28/18 [Santyl] oint...g. Clopidogrel Bisulfate [Plavix] 75 mg PO DAILY 07/15/18 ASSESSMENT AND PLAN: 87 y/o gentleman with h/o HTN, HL, CAD, s/p stenting, b/l TKR, R hip replacement , Dm , hypothyroidism , and PVD who presented with generalized weakness after L lower leg ulcer debridement. # Infected L calf Ulcer s/p excisional debridment of tendons and fascia by dr. Duran .continue iV vancomycin and Zosyn as per ID. # Hematuria: Urology consult Dr. Bains # Dm : hold po meds and start SSI # h/o CAD : continue home meds. DVT Px: heparin will hold for hemauria if needed.
[2018-07-17] MEDS ORDERED: INSULIN (NOVOLOG) ASPART 100 UNITS/ML 10ML VIAL ONE (20:13)
[2018-07-17] MEDS: ATORVASTATIN CA 40 MG TABLET (FP) PO SCH ×2 (20:34→21:08)
[2018-07-18] MEDS ORDERED: PIPERACILLIN/TAZOBACTAM 3.375 GM VIAL IVPB ONE ×3 (00:42→17:32)
[2018-07-18] MEDS ORDERED: DEXTROSE 5%-WATER - 50 ML IVPB ONE ×3 (00:42→17:32)
[2018-07-18] MEDS: PIPERACILLIN/TAZOB 3.375 GM 3.375 GM in DEXTROSE 5%-WATER - 50 ML IVPB SCH ×3 (00:58→18:05)
[2018-07-18] MEDS: HEPARIN NA (PORCINE) 5,000 UNITS/ML 1ML VIAL SQ SCH ×2 (05:57→14:04)
[2018-07-18] MEDS: LEVOTHYROXINE NA 75 MCG TABLET (FP) PO SCH (05:59)
[2018-07-18] MEDS: INSULIN SLIDING SCALE (NOVOLOG) 1 VIAL SQ SCH ×3 (05:59→18:05)
[2018-07-18 07:15] LABS: HEMATOCRIT 29.7 % (35.4-49); HEMOGLOBIN 10.3 GM/dL (11.7-16.9); MCH 30.7 pg (25.7-33.7); MCHC 34.8 g/dl (32.0-35.9); MEAN CELL VOLUME 88.2 fl (80-96); MEAN PLT VOLUME 7.8 fl (7.5-11.1); PLATELET COUNT 224 K/MM3 (134-434); RBC 3.37 M/mm3 (4.00-5.60); RDW 13.8 % (11.9-15.9); WHITE BLOOD COUNT 5.8 K/mm3 (4.0-10.0)
[2018-07-18 07:52] LABS: ANION GAP 7 MMOL/L (8-16); BLOOD UREA NITROGEN 15 mg/dL (7-18); CALCIUM 7.9 mg/dL (8.5-10.1); CHLORIDE 106 mmol/L (98-107); CO2 27 mmol/L (21-32); CREATININE 0.8 mg/dL (0.55-1.3); GLUCOSE,RANDOM 174 mg/dL (74-106); MAGNESIUM 1.9 mg/dL (1.8-2.4); PHOSPHOROUS 2.7 mg/dL (2.5-4.9); POTASSIUM 4.7 mmol/L (3.5-5.1); SODIUM 140 mmol/L (136-145)
--- NOTE | 2018-07-18 09:17 | PN ---
Progress Note (short form) - Note Progress Note: CT scan with small stones. recommend cystoscopy as outpatient Problem List - Problems (1) Gross hematuria Code(s): R31.0 - GROSS HEMATURIA
[2018-07-18] MEDS: metoPROLOL SUCCINATE 25 MG TAB.SR.24H (FP) PO SCH (09:41)
[2018-07-18] MEDS: CLOPIDOGREL BISULFATE 75 MG TABLET (FP) PO SCH (09:41)
[2018-07-18] MEDS: VANCOMYCIN HCL 1,500 MG in DEXTROSE 5%-WATER - 500 ML IVPB SCH (09:42)
--- NOTE | 2018-07-18 09:43 | PN ---
Progress Note (short form) - Note Progress Note: Pt seen this morning. Wound vac functioning well with minimal serosanguinous drainage in reservoir. Pain controlled. Per resident, plan for d/c later today pending VNS/wound vac supplies. Pt should f/u in the wound care office on Saturday07/23/17.
--- NOTE | 2018-07-18 10:13 | PN ---
Teaching Attending Note Name of Resident: Zenaida Rojas ATTENDING PHYSICIAN STATEMENT I saw and evaluated the patient. I reviewed the resident's note and discussed the case with the resident. I agree with the resident's findings and plan as documented. SUBJECTIVE: Patient is feeling better with no acute distress. OBJECTIVE: Vital Signs Temperature 98.6 F 07/18/18 05:00 Pulse Rate 79 07/18/18 05:00 Respiratory Rate 20 07/18/18 05:00 Blood Pressure 129/69 07/18/18 05:00 O2 Sat by Pulse Oximetry (%) 96 07/17/18 20:45 GENERAL: The patient is awake, alert, and fully oriented, in no acute distress. HEAD: Normal with no signs of trauma. NECK: Trachea midline, full range of motion, supple. LUNGS: Breath sounds equal, clear to auscultation bilaterally. HEART: Regular rate and rhythm, S1, S2 without murmur, rub or gallop. ABDOMEN: Soft, nontender, nondistended, normoactive bowel sounds. EXTREMITIES: 2+ pulses, warm, well-perfused, no edema. +VAC at the left posterior LE NEUROLOGICAL: Cranial nerves II through XII grossly intact. Normal speech, gait not observed. PSYCH: Normal mood, normal affect. SKIN: Warm, dry, normal turgor, no rashes or lesions noted CBCD WBC 5.8 K/mm3 (4.0-10.0) 07/18/18 06:30 RBC 3.37 M/mm3 (4.00-5.60) L 07/18/18 06:30 Hgb 10.3 GM/dL (11.7-16.9) L 07/18/18 06:30 Hct 29.7 % (35.4-49) L 07/18/18 06:30 MCV 88.2 fl (80-96) 07/18/18 06:30 MCHC 34.8 g/dl (32.0-35.9) 07/18/18 06:30 RDW 13.8 % (11.9-15.9) 07/18/18 06:30 Plt Count 224 K/MM3 (134-434) 07/18/18 06:30 MPV 7.8 fl (7.5-11.1) 07/18/18 06:30 CMP Sodium 140 mmol/L (136-145) 07/18/18 06:30 Potassium 4.7 mmol/L (3.5-5.1) 07/18/18 06:30 Chloride 106 mmol/L (98-107) 07/18/18 06:30 Carbon Dioxide 27 mmol/L (21-32) 07/18/18 06:30 Anion Gap 7 MMOL/L (8-16) L 07/18/18 06:30 BUN 15 mg/dL (7-18) 07/18/18 06:30 Creatinine 0.8 mg/dL (0.55-1.3) 07/18/18 06:30 Creat Clearance w eGFR > 60 (>60) 07/18/18 06:30 Random Glucose 174 mg/dL (74-106) H 07/18/18 06:30 Calcium 7.9 mg/dL (8.5-10.1) L 07/18/18 06:30 Total Bilirubin 0.8 mg/dL (0.2-1) 07/15/18 00:33 AST 16 U/L (15-37) 07/15/18 00:33 ALT 18 U/L (13-61) 07/15/18 00:33 Alkaline Phosphatase 80 U/L (45-117) 07/15/18 00:33 Total Protein 6.3 g/dl (6.4-8.2) L 07/15/18 00:33 Albumin 2.6 g/dl (3.4-5.0) L 07/15/18 00:33 Current Medications Generic Name Dose Route Start Last Admin Trade Name Freq PRN Reason Stop Dose Admin Atorvastatin Calcium 40 mg 07/15/18 22:00 07/17/18 21:08 Lipitor - PO Not Given HS WALE Clopidogrel Bisulfate 75 mg 07/16/18 10:00 07/18/18 09:41 Plavix - PO 75 mg DAILY WALE Administration Ergocalciferol 50,000 unit 07/19/18 10:00 Drisdol - PO Sa@1000 [facility] Heparin Sodium (Porcine) 5,000 unit 07/16/18 06:00 07/18/18 05:57 Heparin - SQ 5,000 unit TID WALE Administration Piperacillin Sod/Tazobactam 50 mls @ 100 mls/hr 07/15/18 18:00 07/18/18 09:05 Sod 3.375 gm/ Dextrose IVPB 100 mls/hr Q8H-IV WALE Administration Protocol Vancomycin HCl 1,500 mg/ 500 mls @ 250 mls/hr 07/16/18 10:00 07/18/18 09:42 Dextrose IVPB 250 mls/hr Q24H [facility]ALE Administration Protocol Insulin Aspart 1 vial 07/15/18 07:00 07/18/18 05:59 Novolog Vial Sliding Scale - SQ 2 unit ACHS WALE Administration Protocol Levothyroxine Sodium 150 mcg 07/16/18 07:00 07/18/18 05:59 Synthroid - PO 150 mcg AM [facility]ALE Administration Metoprolol Succinate 25 mg 07/16/18 10:00 07/18/18 09:41 Toprol Xl - PO 25 mg DAILY WALE Administration Home Medications Medication Instructions Recorded Levothyroxine [Synthroid -] 150 mcg PO DAILY 05/14/18 Metformin HCl ER 750 mg PO TID 05/14/18 Metoprolol Tartrate 25 mg PO DAILY 05/14/18 Ergocalciferol [Vitamin D2] 50,000 unit PO SA 05/23/18 Collagenase Clostridium Hist. 1 applic TP DAILY 30 Days #60 05/28/18 [Santyl] oint...g. Clopidogrel Bisulfate [Plavix] 75 mg PO DAILY 07/15/18 Atorvastatin Ca [Lipitor] 40 mg PO HS tablet 07/18/18 Clindamycin [Cleocin -] 300 mg PO Q6HPO #28 capsule 07/18/18 Lactobacillus Acidophilus [Bacid -] 1 each PO TID #21 tab 07/18/18 oxyCODONE HCL [Roxicodone -] 5 mg PO Q6H PRN 7 Days #10 tablet 07/18/18 MDD 2 ASSESSMENT AND PLAN: 87 y/o gentleman with h/o HTN, HL, CAD, s/p stenting, b/l TKR, R hip replacement , Dm , hypothyroidism , and PVD who presented with generalized weakness after L lower leg ulcer debridement. # Infected L calf Ulcer s/p excisional debridment of tendons and fascia,by dr. Duran ,s/p IV vancomycin and Zosyn , as per ID to discharge the patient home on oral clindamycin , VNS is arranged to set up the wound vac in the house in am. # Hematuria: Urology consult Dr. Herson haddad , f/u with urologist as an outpatient. # Dm : continue hoe meds. # h/o CAD : continue home meds.
--- NOTE | 2018-07-18 10:24 | DS ---
Physical Exam: SUBJECTIVE: Patient seen and examined at bedside this morning. No acute events overnight. Patient has no complaints. OBJECTIVE: Vital Signs Period Temp Pulse Resp BP Sys/[place] Pulse Ox Last 24 Hr 97.6 F-98.7 F 77-84 18-20 113-134/60-73 96 PHYSICAL EXAM GENERAL: The patient is awake, alert, and fully oriented, in no acute distress. HEAD: Normal with no signs of trauma. NECK: Trachea midline, full range of motion, supple. LUNGS: Breath sounds equal, clear to auscultation bilaterally. HEART: Regular rate and rhythm, S1, S2 without murmur, rub or gallop. ABDOMEN: Soft, nontender, nondistended, normoactive bowel sounds. EXTREMITIES: 2+ pulses, warm, well-perfused, no edema. +VAC at the left posterior LE NEUROLOGICAL: Cranial nerves II through XII grossly intact. Normal speech, gait not observed. PSYCH: Normal mood, normal affect. SKIN: Warm, dry, normal turgor, no rashes or lesions noted LABS Laboratory Results - last 24 hr 07/17/18 07/17/18 07/18/18 11:47 20:30 05:47 WBC RBC Hgb Hct MCV MCH MCHC RDW Plt Count MPV Sodium Potassium Chloride Carbon Dioxide Anion Gap BUN Creatinine Creat Clearance w eGFR POC Glucometer 248 276 191 Random Glucose Calcium Phosphorus Magnesium 07/18/18 07/18/18 06:30 06:30 WBC 5.8 RBC 3.37 L Hgb 10.3 L Hct 29.7 L MCV 88.2 MCH 30.7 MCHC 34.8 RDW 13.8 Plt Count 224 MPV 7.8 Sodium 140 Potassium 4.7 Chloride 106 Carbon Dioxide 27 Anion Gap 7 L BUN 15 Creatinine 0.8 Creat Clearance w eGFR > 60 POC Glucometer Random Glucose 174 H Calcium 7.9 L Phosphorus 2.7 Magnesium 1.9 HOSPITAL COURSE: Date of Admission:07/16/18 Date of Discharge: 07/18/18 Patient is an 87 year old male with past medical history of HTN, HLD, DM and Hypothyroidism, presented with weakness and lightheadedness after having a Left achilles tendon excisional debridement. Patient was noted to have elevated lactic acid and was started on IV fluids. Vascular surgery and ID consulted. Patient was started on IV vancomycin and zosyn. Blood cultures were negative. Wound vac was placed on the left posterior calf and VNS was arranged for continued wound vac changes at home. Patient also reported intermittent hematuria, of which he follows with Dr. Watters. CT abdomen/pelvis revealed a kidney stone. Recommended patient to have a cystoscopy as outpatient. Patient was discharged with instructions to take Clindamycin for 7 days and to follow-up with Dr. Duran at the wound care clinic on 07/23/18. Minutes to complete discharge: 38 Discharge Summary Reason For Visit: CELLULITIS OF LOWER EXTREMITY,UNABLE TO WALK Current Active Problems Cellulitis, leg (Acute) Gross hematuria (Acute) Infected wound (Acute) Unable to ambulate (Acute) Condition: Improved - Instructions Diet, Activity, Other Instructions: Your visit You were admitted to the hospital after you had debridement of your left leg wound. You were seen by Dr. Duran and your wound was allowed to heal by doing VAC changes. You will be discharged with a home visiting nurse to continue with wound care. While here you were also seen by the infectious disease doctor and given IV antibiotics. You were also noted to have blood in your urine. CAT scan was done which was negative of any acute concerns. You were seen by the urologist and recommended that you follow-up with him for cystoscopy. Medications Please take the following medications as prescribed: 1. Clindamycin 300mg every 6 hours for 7 days. 2. Take Bacid 1 tab three times a day. 3. Oxycodone 5mg every 6 hours as needed for pain. Continue your other home medications. Follow-up -Please follow-up with your primary care doctor within 1 week. -Please follow-up with Dr. Duran at the wound care clinic on Saturday (12/03). -Follow-up with the urologist (Dr. Clifford) within 2 weeks for a cystoscopy. Call his office to schedule an appointment. Additional info Call Dr. Duran's office for any of the following: -fever -severe wound pain not relieved by medication -excessive bleeding or drainage from the VAC or a need to change the VAC off- schedule Call 911 or go to the ED if with any worsening fever, chills, headache, dizziness, chest pain, shortness of breath, nausea, vomiting, abdominal pain, or any new concerns noted. Referrals: Sade Lo MD [Staff Physician] - El Clifford MD [Staff Physician] - Yuri Duran MD [Staff Physician] - 07/23/18 Disposition: VNS/HOME HEALTH CARE - Home Medications Comprehensive Discharge Medication List: Ambulatory Orders Levothyroxine [Synthroid -] 150 mcg PO DAILY 05/14/18 Metformin HCl ER 750 mg PO TID 05/14/18 Metoprolol Tartrate 25 mg PO DAILY 05/14/18 Ergocalciferol [Vitamin D2] 50,000 unit PO SA 05/23/18 Collagenase Clostridium Hist. [Santyl] 1 applic TP DAILY 30 Days #60 oint...g. 05/28/18 Clopidogrel Bisulfate [Plavix] 75 mg PO DAILY 07/15/18 Atorvastatin Ca [Lipitor] 40 mg PO HS tablet 07/18/18 Clindamycin [Cleocin -] 300 mg PO Q6HPO #28 capsule 07/18/18 Lactobacillus Acidophilus [Bacid -] 1 each PO TID #21 tab 07/18/18 oxyCODONE HCL [Roxicodone -] 5 mg PO Q6H PRN 7 Days #10 tablet MDD 2 07/18/18 This patient is new to me today: No Emergency Visit: Yes ED Registration Date: 07/16/18 Care time: The patient presented to the Emergency Department on the above date and was hospitalized for further evaluation of their emergent condition. Critical Care patient: No - Discharge Referral Referred to [facility] No
[2018-07-18 16:20] VITALS: BP 129/91; PULSE 91; TEMP 97.8
[2018-07-19] MEDS ORDERED: ERGOCALCIFEROL (VITAMIN D2) 50,000 UNIT CAPSULE (FP) PO SCH (10:00)
== END 2018-07-18 20:33 | disposition home health service (06) | DRG 920 ==
LOC: JER 21:42 → JERBED 22:58 → J8W 07-15 02:12 → OBSVTOIN 07-16 09:55
PROVIDERS: ADMIT Internal Medicine; ATTEND Internal Medicine
DX: L76.82 Other postprocedural complications of skin and subcutaneous tissue (principal); L03.116 Cellulitis of left lower limb; E87.2 Acidosis; E11.622 Type 2 diabetes mellitus with other skin ulcer; N20.0 Calculus of kidney; R31.0 Gross hematuria; E78.5 Hyperlipidemia, unspecified; I10 Essential (primary) hypertension; E03.9 Hypothyroidism, unspecified; I25.10 Atherosclerotic heart disease of native coronary artery without angina pectoris; Z98.61 Coronary angioplasty status
CPT/HCPCS: 36415; 71045-TC-FY; 74178-TC; 80048; 80053; 81003; 81015; 82962; 83605; 83735; 84100; 84439; 84443; 85025; 85027; 87040; 88304-TC; 93005; 93010; 93306-TC; 94760; 99284-25; G0378; J1644; J7030

== ENCOUNTER 2018-08-13 11:23 | Inpatient (IN) | payer OTHER, MEDICARE ==
[2018-08-13 12:18] VITALS: BMI 26.9
[2018-08-13] MEDS ORDERED: DEXAMETHASONE SOD PHOSPHATE 4 MG/1 ML VIAL ONE (14:15)
[2018-08-13] MEDS ORDERED: LIDOCAINE HCL/PF 2% SDV 5ML VIAL ONE (14:15)
[2018-08-13] MEDS ORDERED: SODIUM CHLORIDE 0.9% P/F 10 ML VIAL IJ ONE (14:15)
[2018-08-13] MEDS ORDERED: ceFAZolin SODIUM 1 GM VIAL ONE (14:15)
[2018-08-13] MEDS ORDERED: ONDANSETRON 4 MG/2 ML VIAL ONE (14:15)
[2018-08-13] MEDS ORDERED: PROPOFOL 20 ML ONE (14:17)
[2018-08-13] MEDS ORDERED: ceFAZolin SODIUM 1 GM VIAL IVPB ONE (14:50)
[2018-08-13] MEDS ORDERED: LIDOCAINE 1%/EPI 1:100000 (50 ML MULTI DOSE VIAL) NR ONE (14:58)
[2018-08-13] MEDS ORDERED: ePHEDrine SULFATE 50 MG/1 ML AMPULE ONE (15:01)
[2018-08-13] MEDS ORDERED: ONDANSETRON 4 MG/2 ML VIAL IVPUSH PRN (15:53)
[2018-08-13] MEDS ORDERED: ACETAMINOPHEN 325 MG TABLET (FP) PO PRN (18:44)
[2018-08-13] MEDS ORDERED: oxyCODONE HCL 5 MG TABLET PO PRN (18:44)
--- NOTE | 2018-08-13 18:49 | HP ---
Admitting History and Physical - Primary Care Physician PCP: Lizeth Montanez - Admission Chief Complaint: llex wound. s/p debridement History of Present Illness: 87 y o h/o htn, hld, dm with llex wound ...chronic - Past Medical History Cardiovascular: Yes: CAD, Hyperlipdemia, Other (PAD) Renal/: Yes: BPH, Hematuria Endocrine: Yes: Diabetes Mellitus, Hypothyroidism - Smoking History Smoking history: Never smoked Have you smoked in the past 12 months: No - Alcohol/Substance Use Hx Alcohol Use: No Home Medications - Allergies Allergies/Adverse Reactions: Allergies Allergy/AdvReac Type Severity Reaction Status Date / Time No Known Allergies Allergy Verified 08/13/18 11:56 - Home Medications Home Medications: Ambulatory Orders Levothyroxine [Synthroid -] 150 mcg PO DAILY 05/14/18 Metformin HCl ER 750 mg PO TID 05/14/18 Metoprolol Tartrate 25 mg PO DAILY 05/14/18 Ergocalciferol [Vitamin D2] 50,000 unit PO SA 05/23/18 Clopidogrel Bisulfate [Plavix] 75 mg PO DAILY 07/15/18 Atorvastatin Ca [Lipitor] 40 mg PO HS tablet 07/18/18 Lactobacillus Acidophilus [Bacid -] 1 each PO TID #21 tab 07/18/18 oxyCODONE HCL [Roxicodone -] 5 mg PO Q6H PRN 7 Days #10 tablet MDD 2 07/18/18 ASA - 81 mg PO DAILY 08/13/18 Amox-Tr/K Cl [Augmentin 875-125mg Tablet -] 1 tab PO BID@0800,1730 #6 tablet 06/04 Physical Examination Vital Signs: Vital Signs Temperature 98.5 F 08/13/18 15:36 Pulse Rate 65 08/13/18 16:10 Respiratory Rate 18 08/13/18 16:10 Blood Pressure 109/57 L 08/13/18 16:10 O2 Sat by Pulse Oximetry (%) 98 08/13/18 16:10 Constitutional: Yes: No Distress HENT: Yes: Atraumatic Neck: Yes: Supple Cardiovascular: Yes: Regular Rate and Rhythm Respiratory: Yes: CTA Bilaterally Gastrointestinal: Yes: Normal Bowel Sounds Extremities: Yes: Other (llex wound...in dressing) Edema: LLE: Trace Peripheral Pulses WNL: Yes Neurological: Yes: Alert, Oriented Problem List - Problems (1) HTN (hypertension) Assessment/Plan: on meds monitor Code(s): I10 - ESSENTIAL (PRIMARY) HYPERTENSION (2) HLD (hyperlipidemia) Assessment/Plan: on meds Code(s): E78.5 - HYPERLIPIDEMIA, UNSPECIFIED (3) Diabetes Assessment/Plan: on po meds monitor bgms Code(s): E11.9 - TYPE 2 DIABETES MELLITUS WITHOUT COMPLICATIONS (4) Cellulitis, leg Assessment/Plan: on iv abx id and plastic surgery on board Code(s): L03.119 - CELLULITIS OF UNSPECIFIED PART OF LIMB (5) Infected wound Assessment/Plan: s/p debridement wound care dressing change Code(s): T14.8XXA - OTHER INJURY OF UNSPECIFIED BODY REGION, INITIAL ENCOUNTER; L08.9 - LOCAL INFECTION OF THE SKIN AND SUBCUTANEOUS TISSUE, UNSP Assessment/Plan Active Medications Generic Name Dose Route Start Last Admin Trade Name Freq PRN Reason Stop Dose Admin Acetaminophen 650 mg 08/13/18 18:44 Tylenol - PO Q6H PRN FEVER Aspirin 81 mg 08/14/18 10:00 Asa - PO DAILY [facility] Atorvastatin Calcium 40 mg 08/13/18 22:00 Lipitor - PO HS [facility] Clopidogrel Bisulfate 75 mg 08/14/18 10:00 Plavix - PO DAILY [facility] Fentanyl 25 mcg 08/13/18 15:53 Sublimaze Injection - IVPUSH [id number] PRN PAIN-PACU ORDER X 4 DOSES ONLY Heparin Sodium (Porcine) 5,000 unit 08/13/18 22:00 Heparin - SQ BID [facility] Lactated Ringer's 1,000 mls @ 125 mls/hr 08/13/18 16:00 Lactated Ringers Solution IV ASDIR [facility] Levothyroxine Sodium 150 mcg 08/14/18 07:00 Synthroid - PO AM [facility] Metoprolol Tartrate 25 mg 08/14/18 10:00 Lopressor - PO DAILY [facility] Non-Formulary Medication 750 mg 08/13/18 22:00 Metformin Hcl Er PO TID [facility] Ondansetron HCl 4 mg 08/13/18 15:53 Zofran Injection IVPUSH Q6H PRN NAUSEA AND/OR VOMITING Oxycodone HCl 10 mg 08/13/18 18:44 Roxicodone - PO Q6H PRN PAIN
[2018-08-13] MEDS: LACTATED RINGERS SOLUTION 1,000 ML IV SCH (20:35)
[2018-08-13] MEDS: ATORVASTATIN CA 40 MG TABLET (FP) PO SCH ×2 (20:36→20:59)
[2018-08-13] MEDS: HEPARIN NA (PORCINE) 5,000 UNITS/ML 1ML VIAL SQ SCH ×2 (20:36→20:59)
[2018-08-14] MEDS: LACTATED RINGERS SOLUTION 1,000 ML IV SCH (04:44)
[2018-08-14] MEDS: LEVOTHYROXINE NA 75 MCG TABLET (FP) PO SCH (06:46)
[2018-08-14 08:12] LABS: BASO % 0.2 % (0-2.0); HEMATOCRIT 31.6 % (35.4-49); HEMOGLOBIN 10.9 GM/dL (11.7-16.9); LYMPH % 6.8 % (8-40); MCH 30.4 pg (25.7-33.7); MCHC 34.3 g/dl (32.0-35.9); MEAN CELL VOLUME 88.5 fl (80-96); MEAN PLT VOLUME 8.7 fl (7.5-11.1); MONO % 6.5 % (3.8-10.2); NEUT % 86.5 % (42.8-82.8); PLATELET COUNT 141 K/MM3 (134-434); RBC 3.57 M/mm3 (4.00-5.60); RDW 15.8 % (11.9-15.9); WHITE BLOOD COUNT 9.1 K/mm3 (4.0-10.0)
[2018-08-14 09:04] LABS: ALBUMIN 2.9 g/dl (3.4-5.0); ALK PHOS 95 U/L (45-117); ANION GAP 6 MMOL/L (8-16); BILIRUBIN,TOTAL 0.6 mg/dL (0.2-1); BLOOD UREA NITROGEN 24 mg/dL (7-18); CALCIUM 8.2 mg/dL (8.5-10.1); CHLORIDE 102 mmol/L (98-107); CO2 29 mmol/L (21-32); CREATININE 1.1 mg/dL (0.55-1.3); GLUCOSE,RANDOM 228 mg/dL (74-106); POTASSIUM 4.7 mmol/L (3.5-5.1); SGOT/AST 4 U/L (15-37); SGPT/ALT 28 U/L (13-61); SODIUM 136 mmol/L (136-145); TOT PROT 7.1 g/dl (6.4-8.2)
--- NOTE | 2018-08-14 10:42 | OP ---
DATE OF OPERATION: DATE OF DICTATION: 08/13/2018 PREOPERATIVE DIAGNOSIS: Infected left lower legs. POSTOPERATIVE DIAGNOSIS: Infected left lower legs with necrotic fascia. PROCEDURES: 1. Incision. 2. Drainage of pus. 3. Excisional debridement sharp of infected necrotic fascia and muscle. 4. Pulsavac irrigation. 5. Wound care. SURGEON: Rigoberto Olivares MD ANESTHESIA: General. HISTORY: The patient is a pleasant 87-year-old diabetic male admitted by Dr. Duran in June 2018. Underwent incision, drainage, and facetectomy for infected left leg. History of trauma to the lower leg, which then extended into severe necrotic tissue with a large amount of pus. The patient has been followed up in the wound closure. Has been on wound care. Patient seen today with excessive drainage, a large amount of necrotic tissue. She is being taken to the operating room on an urgent basis. DESCRIPTION OF PROCEDURE: The patient was brought to the operating room, turned onto the left lateral position. Left leg was washed and cleaned with Betadine soap and solution then draped in a standard aseptic manner. The patient was kept on a nolan bag. General anesthesia was administered. Standard time-out procedure was carried out. The patient was identified including the site. Skin was prepped with Betadine and then draped in a standard aseptic manner. A 4- to 6-cm vertical incision was made in the midline between the 2 of gastrocnemius muscles. It was extended down to the level of the fascia. Large amount of necrotic tissue was found. This was then debrided sharply. Incision was kept in the midline. Sural nerve was located. It was protected. There were patches of necrotic tissue within the muscle, which had to be excised. A culture was taken. Pulsavac was then used for massive irrigation with 3 L of normal saline. Dressing consisting of diluted solution of Betadine and Kerlix was placed into the calf area and draped with a Kerlix. PLAN OF CARE: 1. Admission to the hospital for a period. 2. Consultation from regarding IV antibiotics. 3. Admission under Dr. Lizeth Montanez. FINAL DIAGNOSIS: Diabetic patient with infected left calf tissues. RIGOBERTO OLIVARES M.D. [id number]
[2018-08-14] MEDS: METOPROLOL TARTRATE 25 MG TABLET (FP) PO SCH (11:00)
[2018-08-14] MEDS: CLOPIDOGREL BISULFATE 75 MG TABLET (FP) PO SCH (11:00)
[2018-08-14] MEDS: HEPARIN NA (PORCINE) 5,000 UNITS/ML 1ML VIAL SQ SCH ×2 (11:00→21:27)
[2018-08-14] MEDS: ASPIRIN 81 MG CHEWABLE TABLETS PO SCH (11:37)
--- NOTE | 2018-08-14 11:50 | CON.ID ---
Consult Consult Specialty:: infectious diseases Referred by:: Reason for Consultation:: non healing wound and infected wound of the left leg - History of Present Illness Chief Complaint: non healing wound History of Present Illness: 87 y old male with h/o htn, hld, dm who has chronic wound and was taken to the operating room for surgery and debridement and according tot he surgeon patient had slough . patients wound was on going for last 2 years and according to him has not healed. patient had been n the hospital before for the wound infection and was treated for the same currently he is post op from debridement - History Source History Provided By: Patient Limitations to Obtaining History: No Limitations - Past Medical History Cardio/Vascular: Yes: CAD, Hyperlipdemia, Other (PAD) Renal/: Yes: BPH, Hematuria Endocrine: Yes: Diabetes Mellitus, Hypothyroidism - Alcohol/Substance Use Hx Alcohol Use: No - Smoking History Smoking history: Never smoked Have you smoked in the past 12 months: No Home Medications - Allergies Allergies/Adverse Reactions: Allergies Allergy/AdvReac Type Severity Reaction Status Date / Time No Known Allergies Allergy Verified 08/13/18 11:56 - Home Medications Home Medications: Ambulatory Orders Levothyroxine [Synthroid -] 150 mcg PO DAILY 05/14/18 Metformin HCl ER 750 mg PO TID 05/14/18 Metoprolol Tartrate 25 mg PO DAILY 05/14/18 Ergocalciferol [Vitamin D2] 50,000 unit PO SA 05/23/18 Clopidogrel Bisulfate [Plavix] 75 mg PO DAILY 07/15/18 Atorvastatin Ca [Lipitor] 40 mg PO HS tablet 07/18/18 Lactobacillus Acidophilus [Bacid -] 1 each PO TID #21 tab 07/18/18 oxyCODONE HCL [Roxicodone -] 5 mg PO Q6H PRN 7 Days #10 tablet MDD 2 07/18/18 ASA - 81 mg PO DAILY 08/13/18 Review of Systems - Review of Systems Constitutional: reports: No Symptoms Eyes: reports: No Symptoms HENT: reports: No Symptoms Neck: reports: No Symptoms Cardiovascular: reports: No Symptoms Respiratory: reports: No Symptoms Gastrointestinal: reports: No Symptoms Genitourinary: reports: No Symptoms Musculoskeletal: reports: No Symptoms Integumentary: reports: Wound Neurological: reports: No Symptoms Endocrine: reports: No Symptoms Hematology/Lymphatic: reports: No Symptoms Psychiatric: reports: No Symptoms Physical Exam Vital Signs: Vital Signs Temperature 98.1 F 08/14/18 06:00 Pulse Rate 89 08/14/18 06:00 Respiratory Rate 20 08/14/18 06:00 Blood Pressure 124/68 08/14/18 06:00 O2 Sat by Pulse Oximetry (%) 97 08/13/18 21:33 Constitutional: Yes: Well Nourished, No Distress, Calm Eyes: Yes: Conjunctiva Clear HENT: Yes: Atraumatic, Normocephalic Neck: Yes: Supple, Trachea Midline Cardiovascular: Yes: Regular Rate and Rhythm Respiratory: Yes: Regular, CTA Bilaterally Gastrointestinal: Yes: Normal Bowel Sounds, Soft Musculoskeletal: Yes: WNL Extremities: Yes: Other (wound) Wound/Incision: Yes: Dressing Dry and Intact Neurological: Yes: Alert, Oriented Psychiatric: Yes: Alert, Oriented Labs: CBC, BMP 08/14/18 06:26 08/14/18 06:26 Assessment/Plan Problem List - Problems (1) HTN (hypertension) Code(s): I10 - ESSENTIAL (PRIMARY) HYPERTENSION (2) HLD (hyperlipidemia) Code(s): E78.5 - HYPERLIPIDEMIA, UNSPECIFIED (3) Diabetes Code(s): E11.9 - TYPE 2 DIABETES MELLITUS WITHOUT COMPLICATIONS (4) Cellulitis, leg Code(s): L03.119 - CELLULITIS OF UNSPECIFIED PART OF LIMB (5) Infected wound Code(s): T14.8XXA - OTHER INJURY OF UNSPECIFIED BODY REGION, INITIAL ENCOUNTER; L08.9 - LOCAL INFECTION OF THE SKIN AND SUBCUTANEOUS TISSUE, UNSP plan will start patient on zosyn will await for cx reports to be back wound care will await final plan from plastics rest as per the team
[2018-08-14] MEDS ORDERED: DEXTROSE 5%-WATER - 50 ML IVPB ONE ×2 (12:55→17:02)
[2018-08-14] MEDS ORDERED: PIPERACILLIN/TAZOBACTAM 3.375 GM VIAL IVPB ONE ×2 (12:55→17:02)
[2018-08-14] MEDS: PIPERACILLIN/TAZOB 3.375 GM 3.375 GM in DEXTROSE 5%-WATER - 50 ML IVPB SCH ×2 (13:05→17:43)
--- NOTE | 2018-08-14 13:31 | PN ---
Progress Note, Physician History of Present Illness: comfortable - Current Medication List Current Medications: Active Medications Acetaminophen (Tylenol -) 650 mg PO Q6H PRN PRN Reason: FEVER Aspirin (Asa -) 81 mg PO DAILY [facility] Last Admin: 08/14/18 11:37 Dose: 81 mg Atorvastatin Calcium (Lipitor -) 40 mg PO HS [facility] Last Admin: 08/13/18 20:59 Dose: Not Given Clopidogrel Bisulfate (Plavix -) 75 mg PO DAILY [facility] Last Admin: 08/14/18 11:00 Dose: 75 mg Fentanyl (Sublimaze Injection -) 25 mcg IVPUSH [id number] PRN PRN Reason: PAIN-PACU ORDER X 4 DOSES ONLY Heparin Sodium (Porcine) (Heparin -) 5,000 unit SQ BID [facility] Last Admin: 08/14/18 11:00 Dose: 5,000 unit Lactated Ringer's (Lactated Ringers Solution) 1,000 mls @ 125 mls/hr IV ASDIR [facility] Last Admin: 08/14/18 04:44 Dose: 125 mls/hr Piperacillin Sod/Tazobactam (Sod 3.375 gm/ Dextrose) 50 mls @ 100 mls/hr IVPB Q8H-IV [facility]; Protocol Last Admin: 08/14/18 13:05 Dose: 100 mls/hr Levothyroxine Sodium (Synthroid -) 150 mcg PO AM [facility] Last Admin: 08/14/18 06:46 Dose: 150 mcg Metformin HCl (Glucophage Xr -) 750 mg PO TIDAC [facility] Last Admin: 08/14/18 13:06 Dose: 750 mg Metoprolol Tartrate (Lopressor -) 25 mg PO DAILY [facility] Last Admin: 08/14/18 11:00 Dose: 25 mg Ondansetron HCl (Zofran Injection) 4 mg IVPUSH Q6H PRN PRN Reason: NAUSEA AND/OR VOMITING Oxycodone HCl (Roxicodone -) 10 mg PO Q6H PRN PRN Reason: PAIN - Objective Vital Signs: Vital Signs Temperature 98.1 F 08/14/18 06:00 Pulse Rate 89 08/14/18 06:00 Respiratory Rate 20 08/14/18 06:00 Blood Pressure 124/68 08/14/18 06:00 O2 Sat by Pulse Oximetry (%) 97 08/13/18 21:33 Constitutional: Yes: No Distress Eyes: Yes: Conjunctiva Clear HENT: Yes: Atraumatic Neck: Yes: Supple Cardiovascular: Yes: Regular Rate and Rhythm Respiratory: Yes: CTA Bilaterally Gastrointestinal: Yes: Normal Bowel Sounds Extremities: Yes: Other (llex wound/cellulitis) Neurological: Yes: Alert, Oriented Labs: CBC, BMP 08/14/18 06:26 08/14/18 06:26 Problem List - Problems (1) HTN (hypertension) Assessment/Plan: on meds monitor Code(s): I10 - ESSENTIAL (PRIMARY) HYPERTENSION (2) HLD (hyperlipidemia) Assessment/Plan: on meds Code(s): E78.5 - HYPERLIPIDEMIA, UNSPECIFIED (3) Diabetes Assessment/Plan: on po meds Code(s): E11.9 - TYPE 2 DIABETES MELLITUS WITHOUT COMPLICATIONS (4) Cellulitis, leg Assessment/Plan: on iv abx id and surgery on board Code(s): L03.119 - CELLULITIS OF UNSPECIFIED PART OF LIMB (5) Infected wound Assessment/Plan: s/p debridement wound care dressing change Code(s): T14.8XXA - OTHER INJURY OF UNSPECIFIED BODY REGION, INITIAL ENCOUNTER; L08.9 - LOCAL INFECTION OF THE SKIN AND SUBCUTANEOUS TISSUE, UNSP
[2018-08-14] MEDS: ATORVASTATIN CA 40 MG TABLET (FP) PO SCH (21:27)
[2018-08-15] MEDS ORDERED: DEXTROSE 5%-WATER - 50 ML IVPB ONE ×3 (01:41→17:24)
[2018-08-15] MEDS ORDERED: PIPERACILLIN/TAZOBACTAM 3.375 GM VIAL IVPB ONE ×3 (01:41→17:24)
[2018-08-15] MEDS: PIPERACILLIN/TAZOB 3.375 GM 3.375 GM in DEXTROSE 5%-WATER - 50 ML IVPB SCH ×3 (02:13→17:25)
[2018-08-15] MEDS: LACTATED RINGERS SOLUTION 1,000 ML IV SCH (02:13)
[2018-08-15] MEDS: LEVOTHYROXINE NA 75 MCG TABLET (FP) PO SCH (06:01)
[2018-08-15] MEDS: CLOPIDOGREL BISULFATE 75 MG TABLET (FP) PO SCH (10:35)
[2018-08-15] MEDS: METOPROLOL TARTRATE 25 MG TABLET (FP) PO SCH (10:35)
[2018-08-15] MEDS: ASPIRIN 81 MG CHEWABLE TABLETS PO SCH (10:35)
[2018-08-15] MEDS: HEPARIN NA (PORCINE) 5,000 UNITS/ML 1ML VIAL SQ SCH ×2 (10:36→22:19)
[2018-08-15] MEDS ORDERED: PT OWN MED DRAWER 7, Y5N ONE ×2 (11:26→17:24)
--- NOTE | 2018-08-15 12:51 | PN ---
Progress Note, Physician History of Present Illness: patient post op doing well no new issues wound in dressing wound cx noted - Current Medication List Current Medications: Active Medications Acetaminophen (Tylenol -) 650 mg PO Q6H PRN PRN Reason: FEVER Aspirin (Asa -) 81 mg PO DAILY [facility] Last Admin: 08/15/18 10:35 Dose: 81 mg Atorvastatin Calcium (Lipitor -) 40 mg PO HS [facility] Last Admin: 08/14/18 21:27 Dose: 40 mg Clopidogrel Bisulfate (Plavix -) 75 mg PO DAILY [facility] Last Admin: 08/15/18 10:35 Dose: 75 mg Fentanyl (Sublimaze Injection -) 25 mcg IVPUSH [id number] PRN PRN Reason: PAIN-PACU ORDER X 4 DOSES ONLY Heparin Sodium (Porcine) (Heparin -) 5,000 unit SQ BID [facility] Last Admin: 08/15/18 10:36 Dose: 5,000 unit Lactated Ringer's (Lactated Ringers Solution) 1,000 mls @ 125 mls/hr IV ASDIR [facility] Last Admin: 08/15/18 02:13 Dose: 125 mls/hr Piperacillin Sod/Tazobactam (Sod 3.375 gm/ Dextrose) 50 mls @ 100 mls/hr IVPB Q8H-IV [facility]; Protocol Last Admin: 08/15/18 10:36 Dose: 100 mls/hr Levothyroxine Sodium (Synthroid -) 150 mcg PO AM [facility] Last Admin: 08/15/18 06:01 Dose: 150 mcg Metformin HCl (Glucophage Xr -) 750 mg PO TIDAC [facility] Last Admin: 08/15/18 11:29 Dose: 750 mg Metoprolol Tartrate (Lopressor -) 25 mg PO DAILY [facility] Last Admin: 08/15/18 10:35 Dose: 25 mg Ondansetron HCl (Zofran Injection) 4 mg IVPUSH Q6H PRN PRN Reason: NAUSEA AND/OR VOMITING Oxycodone HCl (Roxicodone -) 10 mg PO Q6H PRN PRN Reason: PAIN - Objective Vital Signs: Vital Signs Temperature 97.6 F 08/15/18 10:00 Pulse Rate 84 08/15/18 10:00 Respiratory Rate 18 08/15/18 10:00 Blood Pressure 120/70 08/15/18 10:00 O2 Sat by Pulse Oximetry (%) 96 08/14/18 21:00 Constitutional: Yes: No Distress, Calm Cardiovascular: Yes: S1, S2 Respiratory: Yes: Regular, CTA Bilaterally Gastrointestinal: Yes: Normal Bowel Sounds, Soft Musculoskeletal: Yes: WNL Extremities: Yes: Other Wound/Incision: Yes: Dressing Dry and Intact Neurological: Yes: Alert, Oriented Psychiatric: Yes: Alert, Oriented Labs: CBC, BMP 08/14/18 06:26 08/14/18 06:26 Assessment/Plan Problem List - Problems (1) HTN (hypertension) Code(s): I10 - ESSENTIAL (PRIMARY) HYPERTENSION (2) HLD (hyperlipidemia) Code(s): E78.5 - HYPERLIPIDEMIA, UNSPECIFIED (3) Diabetes Code(s): E11.9 - TYPE 2 DIABETES MELLITUS WITHOUT COMPLICATIONS (4) Cellulitis, leg Code(s): L03.119 - CELLULITIS OF UNSPECIFIED PART OF LIMB (5) Infected wound Code(s): T14.8XXA - OTHER INJURY OF UNSPECIFIED BODY REGION, INITIAL ENCOUNTER; L08.9 - LOCAL INFECTION OF THE SKIN AND SUBCUTANEOUS TISSUE, UNSP plan wound cx noted probably skin patient doing well await for plastics to see the patient will discuss with plastics about the patients wounds leaning towards no abx on discharge
--- NOTE | 2018-08-15 14:35 | PN ---
Progress Note (short form) - Note Progress Note: Post Op 2 Excisional debrietment L leg , diabetic male Bl Sugar 228 Selected Entries 08/13/18 11:34 Temperature 98 F Pulse Rate 70 Respiratory 20 Rate Blood Pressure 130/80 Blood Pressure 96 Mean Laboratory Tests 08/14/18 08/14/18 06:26 06:26 WBC 9.1 Hgb 10.9 L Hct 31.6 L Neutrophils % 86.5 H D Lymphocytes % 6.8 L D Anion Gap 6 L BUN 24 H Random Glucose 228 H Calcium 8.2 L Dressing removed: Odor has decreased , drainage is bloody, wound less necrotic tissue Plan Start VAC x72 hours Possible Skin graft if no adverse symptoms post VAC Application C&S Strep Viridans... minimal (organism which affects Graft "Take" healing) Will observe for drainage increase Fever, Increase in pain If none Plan : Skin grafting Saturday
--- NOTE | 2018-08-15 17:12 | PATH ---
Surgical Pathology Report Patient Name: ALEX NOGUERA Med. Rec. #: [id number] /Age/Gender: 1930 (Age: 87) / M Account: [id number] Location: [facility] MED/SURG Taken: 08/13/2018 Received: 08/14/2018 Reported: 08/15/2018 Physicians: Lemuel Pinto M.D. Specimen(s) Received DEBRIDED TISSUE LEFT LEG Clinical History Wound left leg Final Diagnosis DEBRIDED TISSUE, LEFT LEG, EXCISION: FIBROCONNECTIVE TISSUE WITH NECROSIS, SEVERE ACUTE AND CHRONIC INFLAMMATION, ABSCESS AND GRANULATION TISSUE FORMATION. Electronically Signed Fara Haro M.D. Gross Description Received in formalin labeled "debrided tissue left leg," is a 2.0 x 1.8 x 0.4 cm aggregate of morales benitez, necrotic portions of soft tissue. A sales representative cash registers portion is submitted in one cassette. 08/14/201808/14/2018
--- NOTE | 2018-08-15 17:59 | PN ---
Progress Note, Physician History of Present Illness: comfortable - Current Medication List Current Medications: Active Medications Acetaminophen (Tylenol -) 650 mg PO Q6H PRN PRN Reason: FEVER Aspirin (Asa -) 81 mg PO DAILY [facility] Last Admin: 08/15/18 10:35 Dose: 81 mg Atorvastatin Calcium (Lipitor -) 40 mg PO HS [facility] Last Admin: 08/14/18 21:27 Dose: 40 mg Clopidogrel Bisulfate (Plavix -) 75 mg PO DAILY [facility] Last Admin: 08/15/18 10:35 Dose: 75 mg Fentanyl (Sublimaze Injection -) 25 mcg IVPUSH [id number] PRN PRN Reason: PAIN-PACU ORDER X 4 DOSES ONLY Heparin Sodium (Porcine) (Heparin -) 5,000 unit SQ BID [facility] Last Admin: 08/15/18 10:36 Dose: 5,000 unit Lactated Ringer's (Lactated Ringers Solution) 1,000 mls @ 125 mls/hr IV ASDIR [facility] Last Admin: 08/15/18 02:13 Dose: 125 mls/hr Piperacillin Sod/Tazobactam (Sod 3.375 gm/ Dextrose) 50 mls @ 100 mls/hr IVPB Q8H-IV [facility]; Protocol Last Admin: 08/15/18 17:25 Dose: 100 mls/hr Levothyroxine Sodium (Synthroid -) 150 mcg PO AM [facility] Last Admin: 08/15/18 06:01 Dose: 150 mcg Metformin HCl (Glucophage Xr -) 750 mg PO TIDAC [facility] Last Admin: 08/15/18 17:25 Dose: 750 mg Metoprolol Tartrate (Lopressor -) 25 mg PO DAILY [facility] Last Admin: 08/15/18 10:35 Dose: 25 mg Ondansetron HCl (Zofran Injection) 4 mg IVPUSH Q6H PRN PRN Reason: NAUSEA AND/OR VOMITING Oxycodone HCl (Roxicodone -) 10 mg PO Q6H PRN PRN Reason: PAIN - Objective Vital Signs: Vital Signs Temperature 97.6 F 08/15/18 10:00 Pulse Rate 84 08/15/18 10:00 Respiratory Rate 18 08/15/18 10:00 Blood Pressure 120/70 08/15/18 10:00 O2 Sat by Pulse Oximetry (%) 96 08/15/18 09:00 Constitutional: Yes: No Distress HENT: Yes: Atraumatic Neck: Yes: Supple Cardiovascular: Yes: Regular Rate and Rhythm Respiratory: Yes: CTA Bilaterally Extremities: Yes: Other (llex in dressing wound vac) Neurological: Yes: Alert, Oriented Labs: CBC, BMP 08/14/18 06:26 08/14/18 06:26 Problem List - Problems (1) HTN (hypertension) Assessment/Plan: on meds monitor Code(s): I10 - ESSENTIAL (PRIMARY) HYPERTENSION (2) HLD (hyperlipidemia) Assessment/Plan: on meds Code(s): E78.5 - HYPERLIPIDEMIA, UNSPECIFIED (3) Diabetes Assessment/Plan: on po meds monitor bgms Code(s): E11.9 - TYPE 2 DIABETES MELLITUS WITHOUT COMPLICATIONS (4) Cellulitis, leg Assessment/Plan: on iv abx wound vac Code(s): L03.119 - CELLULITIS OF UNSPECIFIED PART OF LIMB (5) Infected wound Assessment/Plan: s/p debridement wound care dressing change Code(s): T14.8XXA - OTHER INJURY OF UNSPECIFIED BODY REGION, INITIAL ENCOUNTER; L08.9 - LOCAL INFECTION OF THE SKIN AND SUBCUTANEOUS TISSUE, UNSP
[2018-08-15] MEDS: ATORVASTATIN CA 40 MG TABLET (FP) PO SCH (22:19)
[2018-08-16] MEDS ORDERED: DEXTROSE 5%-WATER - 50 ML IVPB ONE ×3 (01:18→17:23)
[2018-08-16] MEDS ORDERED: PIPERACILLIN/TAZOBACTAM 3.375 GM VIAL IVPB ONE ×3 (01:18→17:23)
[2018-08-16] MEDS: PIPERACILLIN/TAZOB 3.375 GM 3.375 GM in DEXTROSE 5%-WATER - 50 ML IVPB SCH ×3 (01:29→17:39)
[2018-08-16] MEDS: LEVOTHYROXINE NA 75 MCG TABLET (FP) PO SCH (06:19)
[2018-08-16] MEDS: CLOPIDOGREL BISULFATE 75 MG TABLET (FP) PO SCH (09:48)
[2018-08-16] MEDS: ASPIRIN 81 MG CHEWABLE TABLETS PO SCH (09:48)
[2018-08-16] MEDS: HEPARIN NA (PORCINE) 5,000 UNITS/ML 1ML VIAL SQ SCH ×3 (09:48→20:59)
[2018-08-16] MEDS: METOPROLOL TARTRATE 25 MG TABLET (FP) PO SCH (09:48)
[2018-08-16] MEDS ORDERED: PT OWN MED DRAWER 7, Y5N ONE (11:30)
--- NOTE | 2018-08-16 15:32 | PN ---
Progress Note, Physician History of Present Illness: comfortable - Current Medication List Current Medications: Active Medications Acetaminophen (Tylenol -) 650 mg PO Q6H PRN PRN Reason: FEVER Aspirin (Asa -) 81 mg PO DAILY [facility] Last Admin: 08/16/18 09:48 Dose: 81 mg Atorvastatin Calcium (Lipitor -) 40 mg PO HS [facility] Last Admin: 08/15/18 22:19 Dose: 40 mg Clopidogrel Bisulfate (Plavix -) 75 mg PO DAILY [facility] Last Admin: 08/16/18 09:48 Dose: 75 mg Heparin Sodium (Porcine) (Heparin -) 5,000 unit SQ BID [facility] Last Admin: 08/16/18 09:48 Dose: 5,000 unit Lactated Ringer's (Lactated Ringers Solution) 1,000 mls @ 125 mls/hr IV ASDIR [facility] Last Admin: 08/15/18 02:13 Dose: 125 mls/hr Piperacillin Sod/Tazobactam (Sod 3.375 gm/ Dextrose) 50 mls @ 100 mls/hr IVPB Q8H-IV [facility]; Protocol Last Admin: 08/16/18 09:48 Dose: 100 mls/hr Levothyroxine Sodium (Synthroid -) 150 mcg PO AM [facility] Last Admin: 08/16/18 06:19 Dose: 150 mcg Metformin HCl (Glucophage Xr -) 750 mg PO TIDAC [facility] Last Admin: 08/16/18 11:25 Dose: 750 mg Metoprolol Tartrate (Lopressor -) 25 mg PO DAILY [facility] Last Admin: 08/16/18 09:48 Dose: 25 mg Ondansetron HCl (Zofran Injection) 4 mg IVPUSH Q6H PRN PRN Reason: NAUSEA AND/OR VOMITING Oxycodone HCl (Roxicodone -) 10 mg PO Q6H PRN PRN Reason: PAIN - Objective Vital Signs: Vital Signs Temperature 97.6 F 08/16/18 15:27 Pulse Rate 65 08/16/18 15:27 Respiratory Rate 18 08/16/18 15:27 Blood Pressure 99/57 L 08/16/18 15:27 O2 Sat by Pulse Oximetry (%) 97 08/16/18 09:00 Constitutional: Yes: No Distress HENT: Yes: Atraumatic Neck: Yes: Supple Cardiovascular: Yes: Regular Rate and Rhythm Respiratory: Yes: CTA Bilaterally Gastrointestinal: Yes: Normal Bowel Sounds Extremities: Yes: Other (llex wound vac in place) Neurological: Yes: Alert, Oriented Labs: CBC, BMP 08/14/18 06:26 08/14/18 06:26 Problem List - Problems (1) HTN (hypertension) Assessment/Plan: on meds monitor Code(s): I10 - ESSENTIAL (PRIMARY) HYPERTENSION (2) HLD (hyperlipidemia) Assessment/Plan: on meds Code(s): E78.5 - HYPERLIPIDEMIA, UNSPECIFIED (3) Diabetes Assessment/Plan: on po meds monitor bgms Code(s): E11.9 - TYPE 2 DIABETES MELLITUS WITHOUT COMPLICATIONS (4) Cellulitis, leg Code(s): L03.119 - CELLULITIS OF UNSPECIFIED PART OF LIMB (5) Infected wound Assessment/Plan: s/p debridement wound care dressing change wound vac in place Code(s): T14.8XXA - OTHER INJURY OF UNSPECIFIED BODY REGION, INITIAL ENCOUNTER; L08.9 - LOCAL INFECTION OF THE SKIN AND SUBCUTANEOUS TISSUE, UNSP
--- NOTE | 2018-08-16 15:44 | PN ---
Progress Note, Physician History of Present Illness: Pt is doing well, afebrile, without specific complaints. - Current Medication List Current Medications: Active Medications Acetaminophen (Tylenol -) 650 mg PO Q6H PRN PRN Reason: FEVER Aspirin (Asa -) 81 mg PO DAILY [facility] Last Admin: 08/16/18 09:48 Dose: 81 mg Atorvastatin Calcium (Lipitor -) 40 mg PO HS [facility] Last Admin: 08/15/18 22:19 Dose: 40 mg Clopidogrel Bisulfate (Plavix -) 75 mg PO DAILY [facility] Last Admin: 08/16/18 09:48 Dose: 75 mg Heparin Sodium (Porcine) (Heparin -) 5,000 unit SQ BID [facility] Last Admin: 08/16/18 09:48 Dose: 5,000 unit Lactated Ringer's (Lactated Ringers Solution) 1,000 mls @ 125 mls/hr IV ASDIR [facility] Last Admin: 08/15/18 02:13 Dose: 125 mls/hr Piperacillin Sod/Tazobactam (Sod 3.375 gm/ Dextrose) 50 mls @ 100 mls/hr IVPB Q8H-IV [facility]; Protocol Last Admin: 08/16/18 09:48 Dose: 100 mls/hr Levothyroxine Sodium (Synthroid -) 150 mcg PO AM [facility] Last Admin: 08/16/18 06:19 Dose: 150 mcg Metformin HCl (Glucophage Xr -) 750 mg PO TIDAC [facility] Last Admin: 08/16/18 11:25 Dose: 750 mg Metoprolol Tartrate (Lopressor -) 25 mg PO DAILY [facility] Last Admin: 08/16/18 09:48 Dose: 25 mg Ondansetron HCl (Zofran Injection) 4 mg IVPUSH Q6H PRN PRN Reason: NAUSEA AND/OR VOMITING Oxycodone HCl (Roxicodone -) 10 mg PO Q6H PRN PRN Reason: PAIN - Objective Vital Signs: Vital Signs Temperature 97.6 F 08/16/18 15:27 Pulse Rate 65 08/16/18 15:27 Respiratory Rate 18 08/16/18 15:27 Blood Pressure 99/57 L 08/16/18 15:27 O2 Sat by Pulse Oximetry (%) 97 08/16/18 09:00 Constitutional: Yes: No Distress Cardiovascular: Yes: Regular Rate and Rhythm Respiratory: Yes: Regular Gastrointestinal: Yes: Normal Bowel Sounds, Soft Wound/Incision: Yes: Other (LLE wound vac) Neurological: Yes: Alert Labs: CBC, BMP 08/14/18 06:26 08/14/18 06:26 Microbiology 08/13/18 15:20 Wound Gram Stain - Final 08/13/18 15:20 Wound Wound Culture - Final Streptococcus Viridans Problem List - Problems (1) Diabetes Code(s): E11.9 - TYPE 2 DIABETES MELLITUS WITHOUT COMPLICATIONS (2) HLD (hyperlipidemia) Code(s): E78.5 - HYPERLIPIDEMIA, UNSPECIFIED (3) HTN (hypertension) Code(s): I10 - ESSENTIAL (PRIMARY) HYPERTENSION (4) Cellulitis, leg Code(s): L03.119 - CELLULITIS OF UNSPECIFIED PART OF LIMB (5) Infected wound Code(s): T14.8XXA - OTHER INJURY OF UNSPECIFIED BODY REGION, INITIAL ENCOUNTER; L08.9 - LOCAL INFECTION OF THE SKIN AND SUBCUTANEOUS TISSUE, UNSP Assessment/Plan LLE ulcer s/p LLE debridement / wound vac Leg cellulitis -- continue antibiotics for now -- plan is for grafting
[2018-08-16 17:34] LABS: BASO % 1.2 % (0-2.0); EOS % 5.8 % (0-4.5); HEMATOCRIT 35.8 % (35.4-49); HEMOGLOBIN 12.3 GM/dL (11.7-16.9); LYMPH % 17.3 % (8-40); MCH 30.9 pg (25.7-33.7); MCHC 34.5 g/dl (32.0-35.9); MEAN CELL VOLUME 89.7 fl (80-96); MEAN PLT VOLUME 8.1 fl (7.5-11.1); MONO % 12.8 % (3.8-10.2); NEUT % 62.9 % (42.8-82.8); PLATELET COUNT 168 K/MM3 (134-434); RBC 3.99 M/mm3 (4.00-5.60); RDW 16.2 % (11.9-15.9)
[2018-08-16] MEDS: LACTATED RINGERS SOLUTION 1,000 ML IV SCH (17:39)
[2018-08-16 18:11] LABS: ALK PHOS 82 U/L (45-117); ANION GAP 7 MMOL/L (8-16); BILIRUBIN,TOTAL 0.5 mg/dL (0.2-1); BLOOD UREA NITROGEN 17 mg/dL (7-18); CALCIUM 8.2 mg/dL (8.5-10.1); CHLORIDE 103 mmol/L (98-107); CO2 30 mmol/L (21-32); GLUCOSE,RANDOM 114 mg/dL (74-106); POTASSIUM 4.2 mmol/L (3.5-5.1); SGOT/AST 15 U/L (15-37); SGPT/ALT 13 U/L (13-61); SODIUM 140 mmol/L (136-145); TOT PROT 6.4 g/dl (6.4-8.2)
[2018-08-16] MEDS: ATORVASTATIN CA 40 MG TABLET (FP) PO SCH ×2 (20:57→20:59)
[2018-08-17] MEDS ORDERED: DEXTROSE 5%-WATER - 50 ML IVPB ONE ×3 (00:32→17:28)
[2018-08-17] MEDS ORDERED: PIPERACILLIN/TAZOBACTAM 3.375 GM VIAL IVPB ONE ×3 (00:32→17:28)
[2018-08-17] MEDS: PIPERACILLIN/TAZOB 3.375 GM 3.375 GM in DEXTROSE 5%-WATER - 50 ML IVPB SCH ×3 (01:01→18:09)
[2018-08-17] MEDS: LEVOTHYROXINE NA 75 MCG TABLET (FP) PO SCH (06:18)
[2018-08-17] MEDS ORDERED: PT OWN MED DRAWER 7, Y5N ONE ×2 (06:33→09:55)
[2018-08-17] MEDS: HEPARIN NA (PORCINE) 5,000 UNITS/ML 1ML VIAL SQ SCH ×3 (10:00→21:05)
[2018-08-17] MEDS: ASPIRIN 81 MG CHEWABLE TABLETS PO SCH (10:00)
[2018-08-17] MEDS: METOPROLOL TARTRATE 25 MG TABLET (FP) PO SCH (10:00)
[2018-08-17] MEDS: CLOPIDOGREL BISULFATE 75 MG TABLET (FP) PO SCH (10:00)
--- NOTE | 2018-08-17 13:45 | PN ---
Progress Note, Physician History of Present Illness: No new events. Pt without specific complaints. - Current Medication List Current Medications: Active Medications Acetaminophen (Tylenol -) 650 mg PO Q6H PRN PRN Reason: FEVER Aspirin (Asa -) 81 mg PO DAILY [facility] Last Admin: 08/17/18 10:00 Dose: 81 mg Atorvastatin Calcium (Lipitor -) 40 mg PO HS [facility] Last Admin: 08/16/18 20:59 Dose: Not Given Clopidogrel Bisulfate (Plavix -) 75 mg PO DAILY [facility] Last Admin: 08/17/18 10:00 Dose: 75 mg Heparin Sodium (Porcine) (Heparin -) 5,000 unit SQ BID [facility] Last Admin: 08/17/18 10:00 Dose: 5,000 unit Piperacillin Sod/Tazobactam (Sod 3.375 gm/ Dextrose) 50 mls @ 100 mls/hr IVPB Q8H-IV [facility]; Protocol Last Admin: 08/17/18 10:00 Dose: 100 mls/hr Levothyroxine Sodium (Synthroid -) 150 mcg PO AM [facility] Last Admin: 08/17/18 06:18 Dose: 150 mcg Metformin HCl (Glucophage Xr -) 750 mg PO TIDAC [facility] Last Admin: 08/17/18 12:24 Dose: 750 mg Metoprolol Tartrate (Lopressor -) 25 mg PO DAILY [facility] Last Admin: 08/17/18 10:00 Dose: 25 mg Ondansetron HCl (Zofran Injection) 4 mg IVPUSH Q6H PRN PRN Reason: NAUSEA AND/OR VOMITING - Objective Vital Signs: Vital Signs Temperature 98.3 F 08/17/18 10:59 Pulse Rate 69 08/17/18 10:59 Respiratory Rate 18 08/17/18 10:59 Blood Pressure 108/60 08/17/18 10:59 O2 Sat by Pulse Oximetry (%) 97 08/16/18 19:49 Constitutional: Yes: No Distress, Calm Cardiovascular: Yes: Regular Rate and Rhythm Respiratory: Yes: Regular Gastrointestinal: Yes: Normal Bowel Sounds, Soft Wound/Incision: Yes: Other (LLE wound vac) Neurological: Yes: Alert Labs: CBC, BMP 08/16/18 16:40 08/16/18 16:40 Microbiology 08/13/18 15:20 Wound Gram Stain - Final 08/13/18 15:20 Wound Wound Culture - Final Streptococcus Viridans Problem List - Problems (1) Diabetes Code(s): E11.9 - TYPE 2 DIABETES MELLITUS WITHOUT COMPLICATIONS (2) HLD (hyperlipidemia) Code(s): E78.5 - HYPERLIPIDEMIA, UNSPECIFIED (3) HTN (hypertension) Code(s): I10 - ESSENTIAL (PRIMARY) HYPERTENSION (4) Cellulitis, leg Code(s): L03.119 - CELLULITIS OF UNSPECIFIED PART OF LIMB (5) Infected wound Code(s): T14.8XXA - OTHER INJURY OF UNSPECIFIED BODY REGION, INITIAL ENCOUNTER; L08.9 - LOCAL INFECTION OF THE SKIN AND SUBCUTANEOUS TISSUE, UNSP Assessment/Plan LLE ulcer s/p LLE debridement / wound vac Leg cellulitis -- continue antibiotics at this time -- graft placement tentatively scheduled
--- NOTE | 2018-08-17 17:33 | PN ---
Progress Note, Physician History of Present Illness: comfortable - Current Medication List Current Medications: Active Medications Acetaminophen (Tylenol -) 650 mg PO Q6H PRN PRN Reason: FEVER Aspirin (Asa -) 81 mg PO DAILY [facility] Last Admin: 08/17/18 10:00 Dose: 81 mg Atorvastatin Calcium (Lipitor -) 40 mg PO HS [facility] Last Admin: 08/16/18 20:59 Dose: Not Given Clopidogrel Bisulfate (Plavix -) 75 mg PO DAILY [facility] Last Admin: 08/17/18 10:00 Dose: 75 mg Heparin Sodium (Porcine) (Heparin -) 5,000 unit SQ BID [facility] Last Admin: 08/17/18 10:00 Dose: 5,000 unit Piperacillin Sod/Tazobactam (Sod 3.375 gm/ Dextrose) 50 mls @ 100 mls/hr IVPB Q8H-IV [facility]; Protocol Last Admin: 08/17/18 10:00 Dose: 100 mls/hr Levothyroxine Sodium (Synthroid -) 150 mcg PO AM [facility] Last Admin: 08/17/18 06:18 Dose: 150 mcg Metformin HCl (Glucophage Xr -) 750 mg PO TIDAC [facility] Last Admin: 08/17/18 12:24 Dose: 750 mg Metoprolol Tartrate (Lopressor -) 25 mg PO DAILY [facility] Last Admin: 08/17/18 10:00 Dose: 25 mg Ondansetron HCl (Zofran Injection) 4 mg IVPUSH Q6H PRN PRN Reason: NAUSEA AND/OR VOMITING - Objective Vital Signs: Vital Signs Temperature 98.3 F 08/17/18 10:59 Pulse Rate 69 08/17/18 10:59 Respiratory Rate 18 08/17/18 10:59 Blood Pressure 108/60 08/17/18 10:59 O2 Sat by Pulse Oximetry (%) 96 08/17/18 09:00 Constitutional: Yes: No Distress HENT: Yes: Atraumatic Neck: Yes: Supple Cardiovascular: Yes: Regular Rate and Rhythm Respiratory: Yes: CTA Bilaterally Gastrointestinal: Yes: Normal Bowel Sounds Extremities: Yes: Other (llex wound vac in place) Neurological: Yes: Alert, Oriented Labs: CBC, BMP 08/16/18 16:40 08/16/18 16:40 Problem List - Problems (1) HTN (hypertension) Code(s): I10 - ESSENTIAL (PRIMARY) HYPERTENSION (2) HLD (hyperlipidemia) Code(s): E78.5 - HYPERLIPIDEMIA, UNSPECIFIED (3) Diabetes Code(s): E11.9 - TYPE 2 DIABETES MELLITUS WITHOUT COMPLICATIONS (4) Cellulitis, leg Code(s): L03.119 - CELLULITIS OF UNSPECIFIED PART OF LIMB (5) Infected wound Code(s): T14.8XXA - OTHER INJURY OF UNSPECIFIED BODY REGION, INITIAL ENCOUNTER; L08.9 - LOCAL INFECTION OF THE SKIN AND SUBCUTANEOUS TISSUE, UNSP
[2018-08-17] MEDS: ATORVASTATIN CA 40 MG TABLET (FP) PO SCH ×2 (20:57→21:05)
[2018-08-18] MEDS ORDERED: DEXTROSE 5%-WATER - 50 ML IVPB ONE ×3 (00:43→16:40)
[2018-08-18] MEDS ORDERED: PIPERACILLIN/TAZOBACTAM 3.375 GM VIAL IVPB ONE ×3 (00:43→16:39)
[2018-08-18] MEDS: PIPERACILLIN/TAZOB 3.375 GM 3.375 GM in DEXTROSE 5%-WATER - 50 ML IVPB SCH ×3 (00:59→17:43)
[2018-08-18] MEDS: LEVOTHYROXINE NA 75 MCG TABLET (FP) PO SCH (06:12)
[2018-08-18 07:44] LABS: BASO % 1.1 % (0-2.0); EOS % 8.3 % (0-4.5); HEMATOCRIT 34.8 % (35.4-49); LYMPH % 22.9 % (8-40); MCH 30.5 pg (25.7-33.7); MCHC 34.6 g/dl (32.0-35.9); MEAN CELL VOLUME 88.2 fl (80-96); MEAN PLT VOLUME 8.2 fl (7.5-11.1); MONO % 9.2 % (3.8-10.2); NEUT % 58.5 % (42.8-82.8); PLATELET COUNT 157 K/MM3 (134-434); RBC 3.94 M/mm3 (4.00-5.60); WHITE BLOOD COUNT 5.8 K/mm3 (4.0-10.0)
[2018-08-18 07:58] LABS: ALBUMIN 2.9 g/dl (3.4-5.0); ALK PHOS 74 U/L (45-117); ANION GAP 8 MMOL/L (8-16); BILIRUBIN,TOTAL 0.5 mg/dL (0.2-1); BLOOD UREA NITROGEN 19 mg/dL (7-18); CALCIUM 8.5 mg/dL (8.5-10.1); CHLORIDE 102 mmol/L (98-107); CO2 27 mmol/L (21-32); CREATININE 0.8 mg/dL (0.55-1.3); GLUCOSE,RANDOM 102 mg/dL (74-106); POTASSIUM 3.9 mmol/L (3.5-5.1); SGOT/AST 14 U/L (15-37); SGPT/ALT 15 U/L (13-61); SODIUM 137 mmol/L (136-145); TOT PROT 6.2 g/dl (6.4-8.2)
[2018-08-18] MEDS ORDERED: PT OWN MED DRAWER 7, Y5N ONE (08:10)
[2018-08-18] MEDS: METOPROLOL TARTRATE 25 MG TABLET (FP) PO SCH (10:03)
[2018-08-18] MEDS: HEPARIN NA (PORCINE) 5,000 UNITS/ML 1ML VIAL SQ SCH ×2 (10:03→21:22)
[2018-08-18] MEDS: CLOPIDOGREL BISULFATE 75 MG TABLET (FP) PO SCH (10:03)
[2018-08-18] MEDS: ASPIRIN 81 MG CHEWABLE TABLETS PO SCH (10:03)
--- NOTE | 2018-08-18 13:13 | PN ---
Progress Note, Physician History of Present Illness: patient doing well no complaints wound vac in place - Current Medication List Current Medications: Active Medications Acetaminophen (Tylenol -) 650 mg PO Q6H PRN PRN Reason: FEVER Aspirin (Asa -) 81 mg PO DAILY [facility] Last Admin: 08/18/18 10:03 Dose: 81 mg Atorvastatin Calcium (Lipitor -) 40 mg PO HS [facility] Last Admin: 08/17/18 21:05 Dose: Not Given Clopidogrel Bisulfate (Plavix -) 75 mg PO DAILY [facility] Last Admin: 08/18/18 10:03 Dose: 75 mg Heparin Sodium (Porcine) (Heparin -) 5,000 unit SQ BID [facility] Last Admin: 08/18/18 10:03 Dose: 5,000 unit Piperacillin Sod/Tazobactam (Sod 3.375 gm/ Dextrose) 50 mls @ 100 mls/hr IVPB Q8H-IV [facility]; Protocol Last Admin: 08/18/18 10:00 Dose: 100 mls/hr Levothyroxine Sodium (Synthroid -) 150 mcg PO AM [facility] Last Admin: 08/18/18 06:12 Dose: 150 mcg Metformin HCl (Glucophage Xr -) 750 mg PO TIDAC [facility] Last Admin: 08/18/18 12:16 Dose: 750 mg Metoprolol Tartrate (Lopressor -) 25 mg PO DAILY [facility] Last Admin: 08/18/18 10:03 Dose: 25 mg Ondansetron HCl (Zofran Injection) 4 mg IVPUSH Q6H PRN PRN Reason: NAUSEA AND/OR VOMITING - Objective Vital Signs: Vital Signs Temperature 98 F 08/18/18 06:36 Pulse Rate 76 08/18/18 06:36 Respiratory Rate 20 08/18/18 06:36 Blood Pressure 140/75 08/18/18 06:36 O2 Sat by Pulse Oximetry (%) 96 08/17/18 21:00 Constitutional: Yes: No Distress, Calm Cardiovascular: Yes: Regular Rate and Rhythm Respiratory: Yes: Regular, CTA Bilaterally Gastrointestinal: Yes: Normal Bowel Sounds, Soft Musculoskeletal: Yes: WNL Extremities: Yes: Other Wound/Incision: Yes: Other (wound vac) Neurological: Yes: Alert, Oriented Psychiatric: Yes: Alert, Oriented Labs: CBC, BMP 08/18/18 06:00 08/18/18 06:00 Assessment/Plan Problem List - Problems (1) HTN (hypertension) Code(s): I10 - ESSENTIAL (PRIMARY) HYPERTENSION (2) HLD (hyperlipidemia) Code(s): E78.5 - HYPERLIPIDEMIA, UNSPECIFIED (3) Diabetes Code(s): E11.9 - TYPE 2 DIABETES MELLITUS WITHOUT COMPLICATIONS (4) Cellulitis, leg Code(s): L03.119 - CELLULITIS OF UNSPECIFIED PART OF LIMB (5) Infected wound Code(s): T14.8XXA - OTHER INJURY OF UNSPECIFIED BODY REGION, INITIAL ENCOUNTER; L08.9 - LOCAL INFECTION OF THE SKIN AND SUBCUTANEOUS TISSUE, UNSP plan continue abx plan for graft tomorrow rest as per the team patient doing well
--- NOTE | 2018-08-18 15:08 | PN ---
Progress Note, Physician - Current Medication List Current Medications: Active Medications Acetaminophen (Tylenol -) 650 mg PO Q6H PRN PRN Reason: FEVER Aspirin (Asa -) 81 mg PO DAILY [facility] Last Admin: 08/18/18 10:03 Dose: 81 mg Atorvastatin Calcium (Lipitor -) 40 mg PO HS [facility] Last Admin: 08/17/18 21:05 Dose: Not Given Clopidogrel Bisulfate (Plavix -) 75 mg PO DAILY [facility] Last Admin: 08/18/18 10:03 Dose: 75 mg Heparin Sodium (Porcine) (Heparin -) 5,000 unit SQ BID [facility] Last Admin: 08/18/18 10:03 Dose: 5,000 unit Piperacillin Sod/Tazobactam (Sod 3.375 gm/ Dextrose) 50 mls @ 100 mls/hr IVPB Q8H-IV [facility]; Protocol Last Admin: 08/18/18 10:00 Dose: 100 mls/hr Levothyroxine Sodium (Synthroid -) 150 mcg PO AM [facility] Last Admin: 08/18/18 06:12 Dose: 150 mcg Metformin HCl (Glucophage Xr -) 750 mg PO TIDAC [facility] Last Admin: 08/18/18 12:16 Dose: 750 mg Metoprolol Tartrate (Lopressor -) 25 mg PO DAILY [facility] Last Admin: 08/18/18 10:03 Dose: 25 mg Ondansetron HCl (Zofran Injection) 4 mg IVPUSH Q6H PRN PRN Reason: NAUSEA AND/OR VOMITING - Objective Vital Signs: Vital Signs Temperature 98 F 08/18/18 06:36 Pulse Rate 76 08/18/18 06:36 Respiratory Rate 20 08/18/18 06:36 Blood Pressure 140/75 08/18/18 06:36 O2 Sat by Pulse Oximetry (%) 96 08/17/18 21:00 Constitutional: Yes: No Distress HENT: Yes: Atraumatic Neck: Yes: Supple Cardiovascular: Yes: Regular Rate and Rhythm Respiratory: Yes: CTA Bilaterally Gastrointestinal: Yes: Normal Bowel Sounds Extremities: Yes: Other (llex in dressing wound vac off) Neurological: Yes: Alert, Oriented Labs: CBC, BMP 08/18/18 06:00 08/18/18 06:00 Problem List - Problems (1) HTN (hypertension) Assessment/Plan: on meds monitor Code(s): I10 - ESSENTIAL (PRIMARY) HYPERTENSION (2) HLD (hyperlipidemia) Assessment/Plan: on meds Code(s): E78.5 - HYPERLIPIDEMIA, UNSPECIFIED (3) Diabetes Assessment/Plan: on po meds monitor bgms Code(s): E11.9 - TYPE 2 DIABETES MELLITUS WITHOUT COMPLICATIONS (4) Cellulitis, leg Assessment/Plan: on iv abx wound vac Code(s): L03.119 - CELLULITIS OF UNSPECIFIED PART OF LIMB (5) Infected wound Assessment/Plan: s/p debridement wound care dressing change wound vac in place Code(s): T14.8XXA - OTHER INJURY OF UNSPECIFIED BODY REGION, INITIAL ENCOUNTER; L08.9 - LOCAL INFECTION OF THE SKIN AND SUBCUTANEOUS TISSUE, UNSP
[2018-08-18] MEDS: ATORVASTATIN CA 40 MG TABLET (FP) PO SCH (21:22)
[2018-08-19] MEDS ORDERED: DEXTROSE 5%-WATER - 50 ML IVPB ONE ×3 (01:36→16:35)
[2018-08-19] MEDS ORDERED: PIPERACILLIN/TAZOBACTAM 3.375 GM VIAL IVPB ONE ×3 (01:36→16:35)
[2018-08-19] MEDS: PIPERACILLIN/TAZOB 3.375 GM 3.375 GM in DEXTROSE 5%-WATER - 50 ML IVPB SCH ×3 (01:43→17:31)
[2018-08-19] MEDS: LEVOTHYROXINE NA 75 MCG TABLET (FP) PO SCH (07:12)
[2018-08-19] MEDS: ASPIRIN 81 MG CHEWABLE TABLETS PO SCH (10:16)
[2018-08-19] MEDS: METOPROLOL TARTRATE 25 MG TABLET (FP) PO SCH (10:29)
[2018-08-19] MEDS: HEPARIN NA (PORCINE) 5,000 UNITS/ML 1ML VIAL SQ SCH ×2 (10:38→22:24)
[2018-08-19] MEDS: CLOPIDOGREL BISULFATE 75 MG TABLET (FP) PO SCH (10:39)
--- NOTE | 2018-08-19 11:30 | PN ---
Progress Note (short form) - Note Progress Note: 87 year old Diabetic male with a large Open wound left lower leg, Post Surgery needs reconstruction/closure of defect Wound evaluated, good granulation tissue, minimal discharge, no odor, no warm , no induration Plan : 1. Closure of large defect with split skin graft . 2. Portion of defect closure with Advancement flap, rest of the defect near the ankle will require grafting VAC Application post graft, will require splinting Procedure explained, all questions answered Will apply VAC Post grafting Labs noted including Hb Hct Microbiology 08/13/18 15:20 Wound Gram Stain - Final 08/13/18 15:20 Wound Wound Culture - Final Streptococcus Viridans Laboratory Tests 08/14/18 08/16/18 08/18/18 06:26 16:40 06:00 Hgb 10.9 L 12.0 Hct 31.6 L 34.8 L RDW 16.2 H 16.0 H Neutrophils % 86.5 H D 58.5 Lymphocytes % 6.8 L D 22.9 D Monocytes % 12.8 H D Eosinophils % 5.8 H D
--- NOTE | 2018-08-19 11:47 | PN ---
Progress Note, Physician History of Present Illness: stable plan is to take him to or tomorrow for the graft - Current Medication List Current Medications: Active Medications Acetaminophen (Tylenol -) 650 mg PO Q6H PRN PRN Reason: FEVER Aspirin (Asa -) 81 mg PO DAILY [facility] Last Admin: 08/19/18 10:16 Dose: Not Given Atorvastatin Calcium (Lipitor -) 40 mg PO HS [facility] Last Admin: 08/18/18 21:22 Dose: 40 mg Clopidogrel Bisulfate (Plavix -) 75 mg PO DAILY [facility] Last Admin: 08/19/18 10:39 Dose: Not Given Heparin Sodium (Porcine) (Heparin -) 5,000 unit SQ BID [facility] Last Admin: 08/19/18 10:38 Dose: Not Given Piperacillin Sod/Tazobactam (Sod 3.375 gm/ Dextrose) 50 mls @ 100 mls/hr IVPB Q8H-IV [facility]; Protocol Last Admin: 08/19/18 10:28 Dose: 100 mls/hr Levothyroxine Sodium (Synthroid -) 150 mcg PO AM [facility] Last Admin: 08/19/18 07:12 Dose: 150 mcg Metformin HCl (Glucophage Xr -) 750 mg PO TIDAC [facility] Last Admin: 08/19/18 10:39 Dose: Not Given Metoprolol Tartrate (Lopressor -) 25 mg PO DAILY [facility] Last Admin: 08/19/18 10:29 Dose: 25 mg Ondansetron HCl (Zofran Injection) 4 mg IVPUSH Q6H PRN PRN Reason: NAUSEA AND/OR VOMITING Silver Sulfadiazine (Silvadene -) 1 applic TP BID [facility] - Objective Vital Signs: Vital Signs Temperature 97.9 F 08/19/18 10:00 Pulse Rate 72 08/19/18 10:00 Respiratory Rate 24 H 08/19/18 10:00 Blood Pressure 157/57 L 08/19/18 10:00 O2 Sat by Pulse Oximetry (%) 95 08/19/18 10:00 Constitutional: Yes: No Distress, Calm Cardiovascular: Yes: Regular Rate and Rhythm Respiratory: Yes: Regular, CTA Bilaterally Gastrointestinal: Yes: Normal Bowel Sounds, Soft Musculoskeletal: Yes: WNL Extremities: Yes: Other Wound/Incision: Yes: Other (wound vac in place) Neurological: Yes: Alert, Oriented Psychiatric: Yes: Alert, Oriented Labs: CBC, BMP 08/18/18 06:00 08/18/18 06:00 Assessment/Plan Problem List - Problems (1) HTN (hypertension) Code(s): I10 - ESSENTIAL (PRIMARY) HYPERTENSION (2) HLD (hyperlipidemia) Code(s): E78.5 - HYPERLIPIDEMIA, UNSPECIFIED (3) Diabetes Code(s): E11.9 - TYPE 2 DIABETES MELLITUS WITHOUT COMPLICATIONS (4) Cellulitis, leg Code(s): L03.119 - CELLULITIS OF UNSPECIFIED PART OF LIMB (5) Infected wound Code(s): T14.8XXA - OTHER INJURY OF UNSPECIFIED BODY REGION, INITIAL ENCOUNTER; L08.9 - LOCAL INFECTION OF THE SKIN AND SUBCUTANEOUS TISSUE, UNSP plan continue abx plan for graft tomorrow rest as per the team patient doing well
[2018-08-19] MEDS: SILVER SULFADIAZINE 1% TOP CREAM 50 GM JAR TP SCH ×2 (15:26→23:19)
[2018-08-19] MEDS ORDERED: PT OWN MED DRAWER 7, Y5N ONE ×2 (16:37→22:36)
--- NOTE | 2018-08-19 16:55 | PN ---
Progress Note, Physician - Current Medication List Current Medications: Active Medications Acetaminophen (Tylenol -) 650 mg PO Q6H PRN PRN Reason: FEVER Aspirin (Asa -) 81 mg PO DAILY [facility] Last Admin: 08/19/18 10:16 Dose: Not Given Atorvastatin Calcium (Lipitor -) 40 mg PO HS [facility] Last Admin: 08/18/18 21:22 Dose: 40 mg Clopidogrel Bisulfate (Plavix -) 75 mg PO DAILY [facility] Last Admin: 08/19/18 10:39 Dose: Not Given Heparin Sodium (Porcine) (Heparin -) 5,000 unit SQ BID [facility] Last Admin: 08/19/18 10:38 Dose: Not Given Piperacillin Sod/Tazobactam (Sod 3.375 gm/ Dextrose) 50 mls @ 100 mls/hr IVPB Q8H-IV [facility]; Protocol Last Admin: 08/19/18 10:28 Dose: 100 mls/hr Levothyroxine Sodium (Synthroid -) 150 mcg PO AM [facility] Last Admin: 08/19/18 07:12 Dose: 150 mcg Metformin HCl (Glucophage Xr -) 750 mg PO TIDAC [facility] Last Admin: 08/19/18 10:39 Dose: Not Given Metoprolol Tartrate (Lopressor -) 25 mg PO DAILY [facility] Last Admin: 08/19/18 10:29 Dose: 25 mg Ondansetron HCl (Zofran Injection) 4 mg IVPUSH Q6H PRN PRN Reason: NAUSEA AND/OR VOMITING Silver Sulfadiazine (Silvadene -) 1 applic TP BID [facility] Last Admin: 08/19/18 15:26 Dose: 1 applic - Objective Vital Signs: Vital Signs Temperature 98.3 F 08/19/18 14:12 Pulse Rate 66 08/19/18 14:12 Respiratory Rate 18 08/19/18 14:12 Blood Pressure 95/52 L 08/19/18 14:12 O2 Sat by Pulse Oximetry (%) 95 08/19/18 10:00 Constitutional: Yes: No Distress HENT: Yes: Atraumatic Neck: Yes: Supple Cardiovascular: Yes: Regular Rate and Rhythm Respiratory: Yes: CTA Bilaterally Gastrointestinal: Yes: Normal Bowel Sounds Neurological: Yes: Alert, Oriented Labs: CBC, BMP 08/18/18 06:00 08/18/18 06:00 Problem List - Problems (1) HTN (hypertension) Assessment/Plan: on meds monitor Code(s): I10 - ESSENTIAL (PRIMARY) HYPERTENSION (2) HLD (hyperlipidemia) Assessment/Plan: on meds Code(s): E78.5 - HYPERLIPIDEMIA, UNSPECIFIED (3) Diabetes Assessment/Plan: on po meds monitor bgms Code(s): E11.9 - TYPE 2 DIABETES MELLITUS WITHOUT COMPLICATIONS (4) Cellulitis, leg Assessment/Plan: on iv abx wound vac Code(s): L03.119 - CELLULITIS OF UNSPECIFIED PART OF LIMB (5) Infected wound Assessment/Plan: iv abx for graft Code(s): T14.8XXA - OTHER INJURY OF UNSPECIFIED BODY REGION, INITIAL ENCOUNTER; L08.9 - LOCAL INFECTION OF THE SKIN AND SUBCUTANEOUS TISSUE, UNSP
[2018-08-19] MEDS: ATORVASTATIN CA 40 MG TABLET (FP) PO SCH (23:19)
[2018-08-20] MEDS ORDERED: PIPERACILLIN/TAZOBACTAM 3.375 GM VIAL IVPB ONE ×4 (01:35→20:47)
[2018-08-20] MEDS ORDERED: DEXTROSE 5%-WATER - 50 ML IVPB ONE ×4 (01:36→20:47)
[2018-08-20] MEDS: PIPERACILLIN/TAZOB 3.375 GM 3.375 GM in DEXTROSE 5%-WATER - 50 ML IVPB SCH ×3 (01:44→18:43)
[2018-08-20] MEDS: LEVOTHYROXINE NA 75 MCG TABLET (FP) PO SCH (06:42)
[2018-08-20] MEDS: SILVER SULFADIAZINE 1% TOP CREAM 50 GM JAR TP SCH ×2 (06:51→10:38)
[2018-08-20] MEDS ORDERED: PT OWN MED DRAWER 7, Y5N ONE (10:24)
[2018-08-20] MEDS: ASPIRIN 81 MG CHEWABLE TABLETS PO SCH (10:28)
[2018-08-20] MEDS: METOPROLOL TARTRATE 25 MG TABLET (FP) PO SCH (10:29)
[2018-08-20] MEDS: HEPARIN NA (PORCINE) 5,000 UNITS/ML 1ML VIAL SQ SCH (10:29)
[2018-08-20] MEDS: CLOPIDOGREL BISULFATE 75 MG TABLET (FP) PO SCH (10:29)
--- NOTE | 2018-08-20 13:13 | PN ---
Progress Note, Physician History of Present Illness: patient doing well no complaints - Current Medication List Current Medications: Active Medications Acetaminophen (Tylenol -) 650 mg PO Q6H PRN PRN Reason: FEVER Aspirin (Asa -) 81 mg PO DAILY [facility] Last Admin: 08/20/18 10:28 Dose: Not Given Atorvastatin Calcium (Lipitor -) 40 mg PO HS [facility] Last Admin: 08/19/18 23:19 Dose: 40 mg Clopidogrel Bisulfate (Plavix -) 75 mg PO DAILY [facility] Last Admin: 08/20/18 10:29 Dose: Not Given Heparin Sodium (Porcine) (Heparin -) 5,000 unit SQ BID [facility] Last Admin: 08/20/18 10:29 Dose: Not Given Piperacillin Sod/Tazobactam (Sod 3.375 gm/ Dextrose) 50 mls @ 100 mls/hr IVPB Q8H-IV [facility]; Protocol Last Admin: 08/20/18 10:29 Dose: 100 mls/hr Levothyroxine Sodium (Synthroid -) 150 mcg PO AM [facility] Last Admin: 08/20/18 06:42 Dose: Not Given Metformin HCl (Glucophage Xr -) 750 mg PO TIDAC [facility] Last Admin: 08/20/18 10:31 Dose: Not Given Metoprolol Tartrate (Lopressor -) 25 mg PO DAILY [facility] Last Admin: 08/20/18 10:29 Dose: 25 mg Ondansetron HCl (Zofran Injection) 4 mg IVPUSH Q6H PRN PRN Reason: NAUSEA AND/OR VOMITING Silver Sulfadiazine (Silvadene -) 1 applic TP BID [facility] Last Admin: 08/20/18 10:38 Dose: 1 applic - Objective Vital Signs: Vital Signs Temperature 98.5 F 08/20/18 09:00 Pulse Rate 68 08/20/18 09:00 Respiratory Rate 20 08/20/18 09:00 Blood Pressure 123/69 08/20/18 09:00 O2 Sat by Pulse Oximetry (%) 97 08/20/18 09:00 Constitutional: Yes: No Distress Cardiovascular: Yes: Regular Rate and Rhythm Respiratory: Yes: Regular, CTA Bilaterally Gastrointestinal: Yes: Normal Bowel Sounds, Soft Musculoskeletal: Yes: WNL Extremities: Yes: Other Neurological: Yes: Alert, Oriented Psychiatric: Yes: Alert, Oriented Labs: CBC, BMP 08/18/18 06:00 08/18/18 06:00 Assessment/Plan Problem List - Problems (1) HTN (hypertension) Code(s): I10 - ESSENTIAL (PRIMARY) HYPERTENSION (2) HLD (hyperlipidemia) Code(s): E78.5 - HYPERLIPIDEMIA, UNSPECIFIED (3) Diabetes Code(s): E11.9 - TYPE 2 DIABETES MELLITUS WITHOUT COMPLICATIONS (4) Cellulitis, leg Code(s): L03.119 - CELLULITIS OF UNSPECIFIED PART OF LIMB (5) Infected wound Code(s): T14.8XXA - OTHER INJURY OF UNSPECIFIED BODY REGION, INITIAL ENCOUNTER; L08.9 - LOCAL INFECTION OF THE SKIN AND SUBCUTANEOUS TISSUE, UNSP plan continue abx plan for graft tomorrow rest as per the team patient doing well
[2018-08-20] MEDS ORDERED: BACITRACIN/POLYMYXIN OPH OINT 3.5 GM TUBE ONE (13:27)
[2018-08-20] MEDS ORDERED: BACITRACIN 15 GM TUBE TOPICAL OINTMENT ONE (13:28)
[2018-08-20] MEDS ORDERED: LIDOCAINE 1%-EPI 1:100,000 30 ML MDV IJ ONE (13:29)
[2018-08-20] MEDS ORDERED: MINERAL OIL 25 ML OIL ONE (13:29)
[2018-08-20] MEDS ORDERED: ONDANSETRON 4 MG/2 ML VIAL IVPUSH PRN (13:54)
[2018-08-20] MEDS ORDERED: LIDOCAINE HCL/PF 2% SDV 5ML VIAL ONE (14:03)
[2018-08-20] MEDS ORDERED: ePHEDrine SULFATE 50 MG/1 ML AMPULE ONE ×2 (14:28)
[2018-08-20] MEDS ORDERED: MINERAL OIL 25 ML OIL TP ONE (15:01)
[2018-08-20] MEDS ORDERED: BACITRACIN 50,000 UNITS VIAL NR ONE (15:11)
--- NOTE | 2018-08-20 18:00 | PN ---
Progress Note, Physician - Current Medication List Current Medications: Active Medications Acetaminophen (Tylenol -) 650 mg PO Q6H PRN PRN Reason: FEVER Aspirin (Asa -) 81 mg PO DAILY [facility] Last Admin: 08/20/18 10:28 Dose: Not Given Atorvastatin Calcium (Lipitor -) 40 mg PO HS [facility] Last Admin: 08/19/18 23:19 Dose: 40 mg Clopidogrel Bisulfate (Plavix -) 75 mg PO DAILY [facility] Last Admin: 08/20/18 10:29 Dose: Not Given Fentanyl (Sublimaze Injection -) 50 mcg IVPUSH Q5M PRN PRN Reason: PAIN-PACU ORDER X 4 DOSES ONLY Last Admin: 08/20/18 17:00 Dose: 50 mcg Heparin Sodium (Porcine) (Heparin -) 5,000 unit SQ BID [facility] Last Admin: 08/20/18 10:29 Dose: Not Given Piperacillin Sod/Tazobactam (Sod 3.375 gm/ Dextrose) 50 mls @ 100 mls/hr IVPB Q8H-IV [facility]; Protocol Last Admin: 08/20/18 10:29 Dose: 100 mls/hr Lactated Ringer's (Lactated Ringers Solution) 1,000 mls @ 125 mls/hr IV ASDIR [facility] Levothyroxine Sodium (Synthroid -) 150 mcg PO AM [facility] Last Admin: 08/20/18 06:42 Dose: Not Given Metformin HCl (Glucophage Xr -) 750 mg PO TIDAC [facility] Last Admin: 08/20/18 10:31 Dose: Not Given Metoprolol Tartrate (Lopressor -) 25 mg PO DAILY [facility] Last Admin: 08/20/18 10:29 Dose: 25 mg Ondansetron HCl (Zofran Injection) 4 mg IVPUSH Q6H PRN PRN Reason: NAUSEA AND/OR VOMITING Ondansetron HCl (Zofran Injection) 4 mg IVPUSH Q6H PRN PRN Reason: NAUSEA AND/OR VOMITING Silver Sulfadiazine (Silvadene -) 1 applic TP BID [facility] Last Admin: 08/20/18 10:38 Dose: 1 applic - Objective Vital Signs: Vital Signs Temperature 97.8 F 08/20/18 16:11 Pulse Rate 66 08/20/18 17:25 Respiratory Rate 13 08/20/18 17:25 Blood Pressure 131/79 08/20/18 17:25 O2 Sat by Pulse Oximetry (%) 100 08/20/18 17:25 Constitutional: Yes: No Distress HENT: Yes: Atraumatic Neck: Yes: Supple Cardiovascular: Yes: Regular Rate and Rhythm Respiratory: Yes: CTA Bilaterally Gastrointestinal: Yes: Normal Bowel Sounds Extremities: Yes: Other (graft done dressing in place) Neurological: Yes: Alert, Oriented Labs: CBC, BMP 08/18/18 06:00 08/18/18 06:00 Problem List - Problems (1) HTN (hypertension) Assessment/Plan: on meds monitor Code(s): I10 - ESSENTIAL (PRIMARY) HYPERTENSION (2) HLD (hyperlipidemia) Assessment/Plan: on meds Code(s): E78.5 - HYPERLIPIDEMIA, UNSPECIFIED (3) Diabetes Assessment/Plan: on po meds monitor bgms Code(s): E11.9 - TYPE 2 DIABETES MELLITUS WITHOUT COMPLICATIONS (4) Cellulitis, leg Assessment/Plan: on iv abx graft done today Code(s): L03.119 - CELLULITIS OF UNSPECIFIED PART OF LIMB (5) Infected wound Assessment/Plan: iv abx Code(s): T14.8XXA - OTHER INJURY OF UNSPECIFIED BODY REGION, INITIAL ENCOUNTER; L08.9 - LOCAL INFECTION OF THE SKIN AND SUBCUTANEOUS TISSUE, UNSP
[2018-08-20] MEDS: ATORVASTATIN CA 40 MG TABLET (FP) PO SCH (21:32)
[2018-08-20] MEDS: LACTATED RINGERS SOLUTION 1,000 ML IV SCH (21:33)
[2018-08-21] MEDS: PIPERACILLIN/TAZOB 3.375 GM 3.375 GM in DEXTROSE 5%-WATER - 50 ML IVPB SCH ×3 (01:43→17:16)
[2018-08-21] MEDS: LACTATED RINGERS SOLUTION 1,000 ML IV SCH ×3 (01:45→17:18)
[2018-08-21] MEDS ORDERED: DEXTROSE 5%-WATER - 50 ML IVPB ONE ×4 (01:51→21:30)
[2018-08-21] MEDS ORDERED: PIPERACILLIN/TAZOBACTAM 3.375 GM VIAL IVPB ONE ×4 (01:51→21:29)
[2018-08-21] MEDS: LEVOTHYROXINE NA 75 MCG TABLET (FP) PO SCH (06:52)
[2018-08-21] MEDS ORDERED: INSULIN (NOVOLOG) ASPART 100 UNITS/ML 10ML VIAL ONE (07:21)
[2018-08-21 08:08] LABS: EOS % 3.8 % (0-4.5); HEMATOCRIT 32.1 % (35.4-49); HEMOGLOBIN 11.1 GM/dL (11.7-16.9); LYMPH % 20.2 % (8-40); MCH 30.7 pg (25.7-33.7); MCHC 34.4 g/dl (32.0-35.9); MEAN PLT VOLUME 8.2 fl (7.5-11.1); MONO % 11.1 % (3.8-10.2); NEUT % 63.9 % (42.8-82.8); PLATELET COUNT 157 K/MM3 (134-434); RBC 3.61 M/mm3 (4.00-5.60); RDW 16.3 % (11.9-15.9); WHITE BLOOD COUNT 6.1 K/mm3 (4.0-10.0)
[2018-08-21 08:29] LABS: ALBUMIN 2.7 g/dl (3.4-5.0); ALK PHOS 72 U/L (45-117); ANION GAP 6 MMOL/L (8-16); BILIRUBIN,TOTAL 0.6 mg/dL (0.2-1); BLOOD UREA NITROGEN 17 mg/dL (7-18); CALCIUM 7.8 mg/dL (8.5-10.1); CHLORIDE 104 mmol/L (98-107); CO2 28 mmol/L (21-32); CREATININE 0.7 mg/dL (0.55-1.3); GLUCOSE,RANDOM 113 mg/dL (74-106); POTASSIUM 4.1 mmol/L (3.5-5.1); SGOT/AST 14 U/L (15-37); SGPT/ALT 18 U/L (13-61); SODIUM 138 mmol/L (136-145); TOT PROT 5.6 g/dl (6.4-8.2)
[2018-08-21] MEDS: METOPROLOL TARTRATE 25 MG TABLET (FP) PO SCH (09:39)
--- NOTE | 2018-08-21 11:18 | OP ---
DATE OF OPERATION: DATE OF DICTATION: 08/20/2018 PREOPERATIVE DIAGNOSIS: Diabetic open wound, left leg. POSTOPERATIVE DIAGNOSIS: Diabetic open wound, left leg. PROCEDURE: Split-thickness skin grafting left leg, over 30 x 7 cm. SURGEON: Rigoberto Olivares M.D. TYPE OF ANESTHESIA: General. ESTIMATED BLOOD LOSS: Minimal. PROCEDURE: 1. Debridement. 2. Removal foreign body. 3. Split thickness skin graft, 12th of an inch, over 250 sq cm. DESCRIPTION OF PROCEDURE: The patient was brought to the operating room. He was transferred over to the table and placed in the right lateral position. Informed consent had been taken. At this time, general anesthesia with intubation was done. Following that he was placed in the right lateral position on a beanbag. All bony prominences and skin was protected with padding. Left leg and thigh was washed and cleaned with Betadine soak and solution and then draped in a standard aseptic manner. Standard timeout was carried out. Identification of the site and the procedure was agreed. Standard draping was performed. Using Kim dermatome, a 12th of an inch skin graft was taken from the lateral thigh. times. Kept in a saline sponge separately. Excisional debridement of left lower leg wound was carried out, which was over 30 cm x 7 cm. After debridement, particles of foreign bodies were removed. These were some particles from the black foam from the VAC dressing. Following debridement, split thickness skin graft was then applied, and was surgically immobilized using veronika. Dressing Xeroform. Application of VAC dressing applied at 125 continuous mmHg. Circulation to the foot was satisfactory. Patient was extubated, sent to recovery room in a satisfactory condition. RIGOBERTO OLIVARES M.D. [id number]
--- NOTE | 2018-08-21 11:18 | PN ---
Progress Note (short form) - Note Progress Note: POD #1 - s/p left lower extremity I&D and wound vac application. VSS. Pt. resting comfortably in bed. No apparent anesthetic complications noted. Continue current care.
[2018-08-21] MEDS ORDERED: PT OWN MED DRAWER 7, Y5N ONE ×2 (12:27→17:13)
[2018-08-21] MEDS: CLOPIDOGREL BISULFATE 75 MG TABLET (FP) PO SCH (12:33)
[2018-08-21] MEDS: ASPIRIN 81 MG CHEWABLE TABLETS PO SCH (12:33)
--- NOTE | 2018-08-21 14:06 | PN ---
Progress Note, Physician History of Present Illness: stable doing well post op vac present - Current Medication List Current Medications: Active Medications Acetaminophen (Tylenol -) 650 mg PO Q6H PRN PRN Reason: FEVER Last Admin: 08/20/18 21:32 Dose: 650 mg Aspirin (Asa -) 81 mg PO DAILY [facility] Last Admin: 08/21/18 12:33 Dose: 81 mg Atorvastatin Calcium (Lipitor -) 40 mg PO HS [facility] Last Admin: 08/20/18 21:32 Dose: 40 mg Clopidogrel Bisulfate (Plavix -) 75 mg PO DAILY [facility] Last Admin: 08/21/18 12:33 Dose: 75 mg Fentanyl (Sublimaze Injection -) 50 mcg IVPUSH Q5M PRN PRN Reason: PAIN-PACU ORDER X 4 DOSES ONLY Last Admin: 08/20/18 17:00 Dose: 50 mcg Piperacillin Sod/Tazobactam (Sod 3.375 gm/ Dextrose) 50 mls @ 100 mls/hr IVPB Q8H-IV [facility]; Protocol Last Admin: 08/21/18 09:39 Dose: 100 mls/hr Lactated Ringer's (Lactated Ringers Solution) 1,000 mls @ 125 mls/hr IV ASDIR [facility] Last Admin: 08/21/18 01:45 Dose: 125 mls/hr Levothyroxine Sodium (Synthroid -) 150 mcg PO AM [facility] Last Admin: 08/21/18 06:52 Dose: 150 mcg Metformin HCl (Glucophage Xr -) 750 mg PO TIDAC [facility] Last Admin: 08/21/18 12:34 Dose: 750 mg Metoprolol Tartrate (Lopressor -) 25 mg PO DAILY [facility] Last Admin: 08/21/18 09:39 Dose: 25 mg Ondansetron HCl (Zofran Injection) 4 mg IVPUSH Q6H PRN PRN Reason: NAUSEA AND/OR VOMITING Ondansetron HCl (Zofran Injection) 4 mg IVPUSH Q6H PRN PRN Reason: NAUSEA AND/OR VOMITING Silver Sulfadiazine (Silvadene -) 1 applic TP BID [facility] Last Admin: 08/20/18 10:38 Dose: 1 applic - Objective Vital Signs: Vital Signs Temperature 97.6 F 08/21/18 05:58 Pulse Rate 62 08/21/18 05:58 Respiratory Rate 20 08/21/18 05:58 Blood Pressure 100/55 L 08/21/18 05:58 O2 Sat by Pulse Oximetry (%) 99 08/20/18 17:55 Constitutional: Yes: No Distress, Calm Cardiovascular: Yes: Regular Rate and Rhythm Respiratory: Yes: Regular, CTA Bilaterally Gastrointestinal: Yes: Normal Bowel Sounds, Soft Musculoskeletal: Yes: WNL Extremities: Yes: Other Wound/Incision: Yes: Dressing Dry and Intact, Other (wound vac in place) Neurological: Yes: Alert, Oriented Psychiatric: Yes: Alert, Oriented Labs: CBC, BMP 08/21/18 06:20 08/21/18 06:20 Assessment/Plan Problem List - Problems (1) HTN (hypertension) Code(s): I10 - ESSENTIAL (PRIMARY) HYPERTENSION (2) HLD (hyperlipidemia) Code(s): E78.5 - HYPERLIPIDEMIA, UNSPECIFIED (3) Diabetes Code(s): E11.9 - TYPE 2 DIABETES MELLITUS WITHOUT COMPLICATIONS (4) Cellulitis, leg Code(s): L03.119 - CELLULITIS OF UNSPECIFIED PART OF LIMB (5) Infected wound Code(s): T14.8XXA - OTHER INJURY OF UNSPECIFIED BODY REGION, INITIAL ENCOUNTER; L08.9 - LOCAL INFECTION OF THE SKIN AND SUBCUTANEOUS TISSUE, UNSP plan continue abx post op will await for wound to be evaluated rest as per the team
[2018-08-21] MEDS: SILVER SULFADIAZINE 1% TOP CREAM 50 GM JAR TP SCH ×2 (16:55→22:07)
--- NOTE | 2018-08-21 18:56 | PN ---
Progress Note, Physician History of Present Illness: comfortable - Current Medication List Current Medications: Active Medications Acetaminophen (Tylenol -) 650 mg PO Q6H PRN PRN Reason: FEVER Last Admin: 08/20/18 21:32 Dose: 650 mg Aspirin (Asa -) 81 mg PO DAILY [facility] Last Admin: 08/21/18 12:33 Dose: 81 mg Atorvastatin Calcium (Lipitor -) 40 mg PO HS [facility] Last Admin: 08/20/18 21:32 Dose: 40 mg Clopidogrel Bisulfate (Plavix -) 75 mg PO DAILY [facility] Last Admin: 08/21/18 12:33 Dose: 75 mg Fentanyl (Sublimaze Injection -) 50 mcg IVPUSH Q5M PRN PRN Reason: PAIN-PACU ORDER X 4 DOSES ONLY Last Admin: 08/20/18 17:00 Dose: 50 mcg Piperacillin Sod/Tazobactam (Sod 3.375 gm/ Dextrose) 50 mls @ 100 mls/hr IVPB Q8H-IV [facility]; Protocol Last Admin: 08/21/18 17:16 Dose: 100 mls/hr Lactated Ringer's (Lactated Ringers Solution) 1,000 mls @ 125 mls/hr IV ASDIR [facility] Last Admin: 08/21/18 17:18 Dose: 125 mls/hr Levothyroxine Sodium (Synthroid -) 150 mcg PO AM [facility] Last Admin: 08/21/18 06:52 Dose: 150 mcg Metformin HCl (Glucophage Xr -) 750 mg PO TIDAC [facility] Last Admin: 08/21/18 17:24 Dose: 750 mg Metoprolol Tartrate (Lopressor -) 25 mg PO DAILY [facility] Last Admin: 08/21/18 09:39 Dose: 25 mg Ondansetron HCl (Zofran Injection) 4 mg IVPUSH Q6H PRN PRN Reason: NAUSEA AND/OR VOMITING Ondansetron HCl (Zofran Injection) 4 mg IVPUSH Q6H PRN PRN Reason: NAUSEA AND/OR VOMITING Silver Sulfadiazine (Silvadene -) 1 applic TP BID [facility] Last Admin: 08/21/18 16:55 Dose: Not Given - Objective Vital Signs: Vital Signs Temperature 98 F 08/21/18 16:30 Pulse Rate 99 H 08/21/18 16:30 Respiratory Rate 20 08/21/18 16:30 Blood Pressure 102/60 08/21/18 16:30 O2 Sat by Pulse Oximetry (%) 99 08/20/18 17:55 Constitutional: Yes: No Distress HENT: Yes: Atraumatic Neck: Yes: Supple Cardiovascular: Yes: Regular Rate and Rhythm Respiratory: Yes: CTA Bilaterally Gastrointestinal: Yes: Normal Bowel Sounds Extremities: Yes: Other (llex dressing in place) Neurological: Yes: Alert, Oriented Labs: CBC, BMP 08/21/18 06:20 08/21/18 06:20 Problem List - Problems (1) HTN (hypertension) Assessment/Plan: on meds monitor Code(s): I10 - ESSENTIAL (PRIMARY) HYPERTENSION (2) HLD (hyperlipidemia) Assessment/Plan: on meds Code(s): E78.5 - HYPERLIPIDEMIA, UNSPECIFIED (3) Diabetes Assessment/Plan: on po meds monitor bgms Code(s): E11.9 - TYPE 2 DIABETES MELLITUS WITHOUT COMPLICATIONS (4) Cellulitis, leg Assessment/Plan: on iv abx graft done today Code(s): L03.119 - CELLULITIS OF UNSPECIFIED PART OF LIMB (5) Infected wound Assessment/Plan: iv abx s/ surgery Code(s): T14.8XXA - OTHER INJURY OF UNSPECIFIED BODY REGION, INITIAL ENCOUNTER; L08.9 - LOCAL INFECTION OF THE SKIN AND SUBCUTANEOUS TISSUE, UNSP
[2018-08-21] MEDS: ATORVASTATIN CA 40 MG TABLET (FP) PO SCH (22:07)
[2018-08-22] MEDS: PIPERACILLIN/TAZOB 3.375 GM 3.375 GM in DEXTROSE 5%-WATER - 50 ML IVPB SCH ×3 (01:17→17:49)
[2018-08-22] MEDS: LACTATED RINGERS SOLUTION 1,000 ML IV SCH ×4 (01:19→20:00)
[2018-08-22] MEDS: LEVOTHYROXINE NA 75 MCG TABLET (FP) PO SCH (06:32)
--- NOTE | 2018-08-22 08:51 | PN ---
Progress Note, Physician History of Present Illness: patient doing well no issues - Current Medication List Current Medications: Active Medications Acetaminophen (Tylenol -) 650 mg PO Q6H PRN PRN Reason: FEVER Last Admin: 08/20/18 21:32 Dose: 650 mg Aspirin (Asa -) 81 mg PO DAILY [facility] Last Admin: 08/21/18 12:33 Dose: 81 mg Atorvastatin Calcium (Lipitor -) 40 mg PO HS [facility] Last Admin: 08/21/18 22:07 Dose: 40 mg Clopidogrel Bisulfate (Plavix -) 75 mg PO DAILY [facility] Last Admin: 08/21/18 12:33 Dose: 75 mg Fentanyl (Sublimaze Injection -) 50 mcg IVPUSH Q5M PRN PRN Reason: PAIN-PACU ORDER X 4 DOSES ONLY Last Admin: 08/20/18 17:00 Dose: 50 mcg Piperacillin Sod/Tazobactam (Sod 3.375 gm/ Dextrose) 50 mls @ 100 mls/hr IVPB Q8H-IV [facility]; Protocol Last Admin: 08/22/18 01:17 Dose: 100 mls/hr Lactated Ringer's (Lactated Ringers Solution) 1,000 mls @ 125 mls/hr IV ASDIR [facility] Last Admin: 08/22/18 01:19 Dose: 125 mls/hr Levothyroxine Sodium (Synthroid -) 150 mcg PO AM [facility] Last Admin: 08/22/18 06:32 Dose: 150 mcg Metformin HCl (Glucophage Xr -) 750 mg PO TIDAC [facility] Last Admin: 08/22/18 06:32 Dose: 750 mg Metoprolol Tartrate (Lopressor -) 25 mg PO DAILY [facility] Last Admin: 08/21/18 09:39 Dose: 25 mg Ondansetron HCl (Zofran Injection) 4 mg IVPUSH Q6H PRN PRN Reason: NAUSEA AND/OR VOMITING Ondansetron HCl (Zofran Injection) 4 mg IVPUSH Q6H PRN PRN Reason: NAUSEA AND/OR VOMITING Silver Sulfadiazine (Silvadene -) 1 applic TP BID [facility] Last Admin: 08/21/18 22:07 Dose: Not Given - Objective Vital Signs: Vital Signs Temperature 97.9 F 08/22/18 07:00 Pulse Rate 62 08/22/18 07:00 Respiratory Rate 20 03/08/19 07:00 Blood Pressure 149/75 03/08/19 07:00 O2 Sat by Pulse Oximetry (%) 99 08/20/18 17:55 Constitutional: Yes: No Distress, Calm Cardiovascular: Yes: Regular Rate and Rhythm Respiratory: Yes: Regular, CTA Bilaterally Gastrointestinal: Yes: Normal Bowel Sounds, Soft Musculoskeletal: Yes: WNL Extremities: Yes: Other Wound/Incision: Yes: Dressing Dry and Intact, Other (wound vac in place) Neurological: Yes: Alert, Oriented Psychiatric: Yes: Alert, Oriented Labs: CBC, BMP 08/21/18 06:20 08/21/18 06:20 Assessment/Plan Problem List - Problems (1) HTN (hypertension) Code(s): I10 - ESSENTIAL (PRIMARY) HYPERTENSION (2) HLD (hyperlipidemia) Code(s): E78.5 - HYPERLIPIDEMIA, UNSPECIFIED (3) Diabetes Code(s): E11.9 - TYPE 2 DIABETES MELLITUS WITHOUT COMPLICATIONS (4) Cellulitis, leg Code(s): L03.119 - CELLULITIS OF UNSPECIFIED PART OF LIMB (5) Infected wound Code(s): T14.8XXA - OTHER INJURY OF UNSPECIFIED BODY REGION, INITIAL ENCOUNTER; L08.9 - LOCAL INFECTION OF THE SKIN AND SUBCUTANEOUS TISSUE, UNSP plan continue abx awaiting for wound evaluation will d/w the surgical team further plan if ok then will switch to oral abx rest continue current mgmt
[2018-08-22] MEDS ORDERED: DEXTROSE 5%-WATER - 50 ML IVPB ONE ×2 (09:42→17:46)
[2018-08-22] MEDS ORDERED: PIPERACILLIN/TAZOBACTAM 3.375 GM VIAL IVPB ONE ×2 (09:42→17:46)
[2018-08-22] MEDS: METOPROLOL TARTRATE 25 MG TABLET (FP) PO SCH (09:53)
[2018-08-22] MEDS: CLOPIDOGREL BISULFATE 75 MG TABLET (FP) PO SCH (09:53)
[2018-08-22] MEDS: ASPIRIN 81 MG CHEWABLE TABLETS PO SCH (09:53)
[2018-08-22] MEDS: SILVER SULFADIAZINE 1% TOP CREAM 50 GM JAR TP SCH ×2 (12:51→23:41)
--- NOTE | 2018-08-22 15:44 | PATH ---
Surgical Pathology Report Patient Name: ALEX NOGUERA Med. Rec. #: [id number] /Age/Gender: 1930 (Age: 87) / M Account: [id number] Location: [facility] MED/SURG Taken: 08/20/2018 Received: 08/21/2018 Reported: 08/22/2018 Physicians: José Luis Montanez M.D. Specimen(s) Received DEBRIDED TISSUE LEFT LEG Clinical History Wound left leg Final Diagnosis DEBRIDED TISSUE, LEFT LEG, EXCISION: ACUTE INFLAMMATORY EXUDATE AND FRAGMENTS OF GRANULATION TISSUE WITH SEVERE ACUTE AND CHRONIC INFLAMMATION. Electronically Signed Fara Haro M.D. Gross Description Received in formalin labeled "debrided tissue left leg," is a 1.5 x 1.1 x 0.3 cm aggregate of morales-benitez soft tissue fragments. The specimen is submitted in toto in one cassette. /08/21/201808/21/2018
[2018-08-22] MEDS: ATORVASTATIN CA 40 MG TABLET (FP) PO SCH (22:00)
--- NOTE | 2018-08-22 23:43 | PN ---
Progress Note, Physician History of Present Illness: comfortable - Current Medication List Current Medications: Active Medications Acetaminophen (Tylenol -) 650 mg PO Q6H PRN PRN Reason: FEVER Last Admin: 08/20/18 21:32 Dose: 650 mg Aspirin (Asa -) 81 mg PO DAILY [facility] Last Admin: 08/22/18 09:53 Dose: 81 mg Atorvastatin Calcium (Lipitor -) 40 mg PO HS [facility] Last Admin: 08/22/18 22:00 Dose: 40 mg Clopidogrel Bisulfate (Plavix -) 75 mg PO DAILY [facility] Last Admin: 08/22/18 09:53 Dose: 75 mg Fentanyl (Sublimaze Injection -) 50 mcg IVPUSH Q5M PRN PRN Reason: PAIN-PACU ORDER X 4 DOSES ONLY Last Admin: 08/20/18 17:00 Dose: 50 mcg Piperacillin Sod/Tazobactam (Sod 3.375 gm/ Dextrose) 50 mls @ 100 mls/hr IVPB Q8H-IV [facility]; Protocol Last Admin: 08/22/18 17:49 Dose: 100 mls/hr Lactated Ringer's (Lactated Ringers Solution) 1,000 mls @ 125 mls/hr IV ASDIR [facility] Last Admin: 08/22/18 17:49 Dose: 125 mls/hr Levothyroxine Sodium (Synthroid -) 150 mcg PO AM [facility] Last Admin: 08/22/18 06:32 Dose: 150 mcg Metformin HCl (Glucophage Xr -) 750 mg PO TIDAC [facility] Last Admin: 08/22/18 16:50 Dose: 750 mg Metoprolol Tartrate (Lopressor -) 25 mg PO DAILY [facility] Last Admin: 08/22/18 09:53 Dose: 25 mg Ondansetron HCl (Zofran Injection) 4 mg IVPUSH Q6H PRN PRN Reason: NAUSEA AND/OR VOMITING Ondansetron HCl (Zofran Injection) 4 mg IVPUSH Q6H PRN PRN Reason: NAUSEA AND/OR VOMITING Silver Sulfadiazine (Silvadene -) 1 applic TP BID [facility] Last Admin: 08/22/18 23:41 Dose: Not Given - Objective Vital Signs: Vital Signs Temperature 97.3 F L 08/22/18 17:09 Pulse Rate 62 08/22/18 17:09 Respiratory Rate 20 08/22/18 17:09 Blood Pressure 128/73 08/22/18 17:09 O2 Sat by Pulse Oximetry (%) 99 08/20/18 17:55 Constitutional: Yes: No Distress HENT: Yes: Atraumatic Neck: Yes: Supple Cardiovascular: Yes: Regular Rate and Rhythm Respiratory: Yes: CTA Bilaterally Gastrointestinal: Yes: Normal Bowel Sounds Extremities: Yes: Other (llex in dressing) Neurological: Yes: Alert, Oriented Labs: CBC, BMP 08/21/18 06:20 08/21/18 06:20 Problem List - Problems (1) HTN (hypertension) Assessment/Plan: on meds monitor Code(s): I10 - ESSENTIAL (PRIMARY) HYPERTENSION (2) HLD (hyperlipidemia) Assessment/Plan: on meds Code(s): E78.5 - HYPERLIPIDEMIA, UNSPECIFIED (3) Diabetes Assessment/Plan: on po meds monitor bgms Code(s): E11.9 - TYPE 2 DIABETES MELLITUS WITHOUT COMPLICATIONS (4) Cellulitis, leg Assessment/Plan: on iv abx graft done today Code(s): L03.119 - CELLULITIS OF UNSPECIFIED PART OF LIMB (5) Infected wound Assessment/Plan: iv abx s/ surgery Code(s): T14.8XXA - OTHER INJURY OF UNSPECIFIED BODY REGION, INITIAL ENCOUNTER; L08.9 - LOCAL INFECTION OF THE SKIN AND SUBCUTANEOUS TISSUE, UNSP
[2018-08-23] MEDS ORDERED: DEXTROSE 5%-WATER - 50 ML IVPB ONE ×3 (01:32→17:05)
[2018-08-23] MEDS ORDERED: PIPERACILLIN/TAZOBACTAM 3.375 GM VIAL IVPB ONE ×3 (01:32→17:05)
[2018-08-23] MEDS: PIPERACILLIN/TAZOB 3.375 GM 3.375 GM in DEXTROSE 5%-WATER - 50 ML IVPB SCH ×3 (01:40→17:47)
[2018-08-23] MEDS: LACTATED RINGERS SOLUTION 1,000 ML IV SCH ×2 (03:48→23:05)
[2018-08-23] MEDS: LEVOTHYROXINE NA 75 MCG TABLET (FP) PO SCH (06:26)
[2018-08-23] MEDS ORDERED: PT OWN MED DRAWER 7, Y5N ONE ×3 (07:51→17:05)
[2018-08-23] MEDS: CLOPIDOGREL BISULFATE 75 MG TABLET (FP) PO SCH (09:36)
[2018-08-23] MEDS: METOPROLOL TARTRATE 25 MG TABLET (FP) PO SCH (09:36)
[2018-08-23] MEDS: ASPIRIN 81 MG CHEWABLE TABLETS PO SCH (09:36)
[2018-08-23] MEDS: SILVER SULFADIAZINE 1% TOP CREAM 50 GM JAR TP SCH ×3 (11:24→23:12)
--- NOTE | 2018-08-23 12:57 | PN ---
Progress Note, Physician History of Present Illness: comfortable - Current Medication List Current Medications: Active Medications Acetaminophen (Tylenol -) 650 mg PO Q6H PRN PRN Reason: FEVER Last Admin: 08/20/18 21:32 Dose: 650 mg Aspirin (Asa -) 81 mg PO DAILY [facility] Last Admin: 08/23/18 09:36 Dose: 81 mg Atorvastatin Calcium (Lipitor -) 40 mg PO HS [facility] Last Admin: 08/22/18 22:00 Dose: 40 mg Clopidogrel Bisulfate (Plavix -) 75 mg PO DAILY [facility] Last Admin: 08/23/18 09:36 Dose: 75 mg Fentanyl (Sublimaze Injection -) 50 mcg IVPUSH Q5M PRN PRN Reason: PAIN-PACU ORDER X 4 DOSES ONLY Last Admin: 08/20/18 17:00 Dose: 50 mcg Piperacillin Sod/Tazobactam (Sod 3.375 gm/ Dextrose) 50 mls @ 100 mls/hr IVPB Q8H-IV [facility]; Protocol Last Admin: 08/23/18 09:36 Dose: 100 mls/hr Lactated Ringer's (Lactated Ringers Solution) 1,000 mls @ 125 mls/hr IV ASDIR [facility] Last Admin: 08/23/18 03:48 Dose: 125 mls/hr Levothyroxine Sodium (Synthroid -) 150 mcg PO AM [facility] Last Admin: 08/23/18 06:26 Dose: 150 mcg Metformin HCl (Glucophage Xr -) 750 mg PO TIDAC [facility] Last Admin: 08/23/18 11:24 Dose: 750 mg Metoprolol Tartrate (Lopressor -) 25 mg PO DAILY [facility] Last Admin: 08/23/18 09:36 Dose: 25 mg Ondansetron HCl (Zofran Injection) 4 mg IVPUSH Q6H PRN PRN Reason: NAUSEA AND/OR VOMITING Ondansetron HCl (Zofran Injection) 4 mg IVPUSH Q6H PRN PRN Reason: NAUSEA AND/OR VOMITING Silver Sulfadiazine (Silvadene -) 1 applic TP BID [facility] Last Admin: 08/23/18 11:24 Dose: Not Given - Objective Vital Signs: Vital Signs Temperature 98.3 F 08/23/18 09:00 Pulse Rate 77 08/23/18 09:00 Respiratory Rate 20 08/23/18 09:00 Blood Pressure 106/65 08/23/18 09:00 O2 Sat by Pulse Oximetry (%) 99 08/20/18 17:55 Constitutional: Yes: No Distress HENT: Yes: Atraumatic Neck: Yes: Supple Cardiovascular: Yes: Regular Rate and Rhythm Respiratory: Yes: CTA Bilaterally Gastrointestinal: Yes: Normal Bowel Sounds Extremities: Yes: Other (llex cellulitis/sp graft..dressing in place) Edema: No Peripheral Pulses WNL: Yes Neurological: Yes: Alert, Oriented Labs: CBC, BMP 08/21/18 06:20 08/21/18 06:20 Problem List - Problems (1) HTN (hypertension) Assessment/Plan: on meds monitor Code(s): I10 - ESSENTIAL (PRIMARY) HYPERTENSION (2) HLD (hyperlipidemia) Assessment/Plan: on meds Code(s): E78.5 - HYPERLIPIDEMIA, UNSPECIFIED (3) Diabetes Assessment/Plan: on po meds monitor bgms Code(s): E11.9 - TYPE 2 DIABETES MELLITUS WITHOUT COMPLICATIONS (4) Cellulitis, leg Assessment/Plan: on iv abx graft done today Code(s): L03.119 - CELLULITIS OF UNSPECIFIED PART OF LIMB (5) Infected wound Assessment/Plan: iv abx s/ surgery Code(s): T14.8XXA - OTHER INJURY OF UNSPECIFIED BODY REGION, INITIAL ENCOUNTER; L08.9 - LOCAL INFECTION OF THE SKIN AND SUBCUTANEOUS TISSUE, UNSP
--- NOTE | 2018-08-23 14:36 | PN ---
Progress Note, Physician Chief Complaint: patient stable no new issues - Current Medication List Current Medications: Active Medications Acetaminophen (Tylenol -) 650 mg PO Q6H PRN PRN Reason: FEVER Last Admin: 08/20/18 21:32 Dose: 650 mg Aspirin (Asa -) 81 mg PO DAILY [facility] Last Admin: 08/23/18 09:36 Dose: 81 mg Atorvastatin Calcium (Lipitor -) 40 mg PO HS [facility] Last Admin: 08/22/18 22:00 Dose: 40 mg Clopidogrel Bisulfate (Plavix -) 75 mg PO DAILY [facility] Last Admin: 08/23/18 09:36 Dose: 75 mg Fentanyl (Sublimaze Injection -) 50 mcg IVPUSH Q5M PRN PRN Reason: PAIN-PACU ORDER X 4 DOSES ONLY Last Admin: 08/20/18 17:00 Dose: 50 mcg Piperacillin Sod/Tazobactam (Sod 3.375 gm/ Dextrose) 50 mls @ 100 mls/hr IVPB Q8H-IV [facility]; Protocol Last Admin: 08/23/18 09:36 Dose: 100 mls/hr Lactated Ringer's (Lactated Ringers Solution) 1,000 mls @ 125 mls/hr IV ASDIR [facility] Last Admin: 08/23/18 03:48 Dose: 125 mls/hr Levothyroxine Sodium (Synthroid -) 150 mcg PO AM [facility] Last Admin: 08/23/18 06:26 Dose: 150 mcg Metformin HCl (Glucophage Xr -) 750 mg PO TIDAC [facility] Last Admin: 08/23/18 11:24 Dose: 750 mg Metoprolol Tartrate (Lopressor -) 25 mg PO DAILY [facility] Last Admin: 08/23/18 09:36 Dose: 25 mg Ondansetron HCl (Zofran Injection) 4 mg IVPUSH Q6H PRN PRN Reason: NAUSEA AND/OR VOMITING Ondansetron HCl (Zofran Injection) 4 mg IVPUSH Q6H PRN PRN Reason: NAUSEA AND/OR VOMITING Silver Sulfadiazine (Silvadene -) 1 applic TP BID [facility] Last Admin: 08/23/18 11:24 Dose: Not Given - Objective Vital Signs: Vital Signs Temperature 98.3 F 08/23/18 09:00 Pulse Rate 77 08/23/18 09:00 Respiratory Rate 20 08/23/18 09:00 Blood Pressure 106/65 08/23/18 09:00 O2 Sat by Pulse Oximetry (%) 99 08/20/18 17:55 Constitutional: Yes: No Distress, Calm Cardiovascular: Yes: S1, S2 Respiratory: Yes: Regular, CTA Bilaterally Gastrointestinal: Yes: Normal Bowel Sounds, Soft Musculoskeletal: Yes: WNL Extremities: Yes: Other Wound/Incision: Yes: Dressing Dry and Intact, Other (wound vac in place) Neurological: Yes: Alert, Oriented Psychiatric: Yes: Alert, Oriented Labs: CBC, BMP 08/21/18 06:20 08/21/18 06:20 Assessment/Plan Problem List - Problems (1) HTN (hypertension) Code(s): I10 - ESSENTIAL (PRIMARY) HYPERTENSION (2) HLD (hyperlipidemia) Code(s): E78.5 - HYPERLIPIDEMIA, UNSPECIFIED (3) Diabetes Code(s): E11.9 - TYPE 2 DIABETES MELLITUS WITHOUT COMPLICATIONS (4) Cellulitis, leg Code(s): L03.119 - CELLULITIS OF UNSPECIFIED PART OF LIMB (5) Infected wound Code(s): T14.8XXA - OTHER INJURY OF UNSPECIFIED BODY REGION, INITIAL ENCOUNTER; L08.9 - LOCAL INFECTION OF THE SKIN AND SUBCUTANEOUS TISSUE, UNSP plan continue abx will decide after talking to plastics rest as per the team will switch to oral tomorrow
[2018-08-23 15:37] LABS: BASO % 0.6 % (0-2.0); EOS % 5.3 % (0-4.5); HEMATOCRIT 34.1 % (35.4-49); HEMOGLOBIN 11.9 GM/dL (11.7-16.9); LYMPH % 14.2 % (8-40); MCH 31.4 pg (25.7-33.7); MEAN CELL VOLUME 89.7 fl (80-96); MONO % 10.1 % (3.8-10.2); NEUT % 69.8 % (42.8-82.8); PLATELET COUNT 163 K/MM3 (134-434); RDW 16.7 % (11.9-15.9)
[2018-08-23 15:57] LABS: ALBUMIN 2.8 g/dl (3.4-5.0); ALK PHOS 81 U/L (45-117); ANION GAP 6 MMOL/L (8-16); BILIRUBIN,TOTAL 0.4 mg/dL (0.2-1); BLOOD UREA NITROGEN 15 mg/dL (7-18); CALCIUM 8.4 mg/dL (8.5-10.1); CHLORIDE 104 mmol/L (98-107); CO2 29 mmol/L (21-32); GLUCOSE,RANDOM 126 mg/dL (74-106); SGOT/AST 11 U/L (15-37); SGPT/ALT 14 U/L (13-61); SODIUM 140 mmol/L (136-145); TOT PROT 6.1 g/dl (6.4-8.2)
[2018-08-23] MEDS: ATORVASTATIN CA 40 MG TABLET (FP) PO SCH (23:05)
[2018-08-24] MEDS: PIPERACILLIN/TAZOB 3.375 GM 3.375 GM in DEXTROSE 5%-WATER - 50 ML IVPB SCH ×3 (04:21→17:42)
[2018-08-24] MEDS ORDERED: PT OWN MED DRAWER 7, Y5N ONE ×3 (06:23→17:36)
[2018-08-24] MEDS: LEVOTHYROXINE NA 75 MCG TABLET (FP) PO SCH (06:50)
[2018-08-24] MEDS ORDERED: PIPERACILLIN/TAZOBACTAM 3.375 GM VIAL IVPB ONE ×2 (10:58→17:35)
[2018-08-24] MEDS ORDERED: DEXTROSE 5%-WATER - 50 ML IVPB ONE ×2 (10:58→17:36)
[2018-08-24] MEDS: ASPIRIN 81 MG CHEWABLE TABLETS PO SCH (11:00)
[2018-08-24] MEDS: CLOPIDOGREL BISULFATE 75 MG TABLET (FP) PO SCH (11:00)
[2018-08-24] MEDS: METOPROLOL TARTRATE 25 MG TABLET (FP) PO SCH (11:00)
[2018-08-24] MEDS: SILVER SULFADIAZINE 1% TOP CREAM 50 GM JAR TP SCH ×2 (11:03→22:20)
--- NOTE | 2018-08-24 13:11 | PN ---
Progress Note, Physician History of Present Illness: patient stable doing well no issues - Current Medication List Current Medications: Active Medications Acetaminophen (Tylenol -) 650 mg PO Q6H PRN PRN Reason: FEVER Last Admin: 08/20/18 21:32 Dose: 650 mg Aspirin (Asa -) 81 mg PO DAILY [facility] Last Admin: 08/24/18 11:00 Dose: 81 mg Atorvastatin Calcium (Lipitor -) 40 mg PO HS [facility] Last Admin: 08/23/18 23:05 Dose: 40 mg Clopidogrel Bisulfate (Plavix -) 75 mg PO DAILY [facility] Last Admin: 08/24/18 11:00 Dose: 75 mg Fentanyl (Sublimaze Injection -) 50 mcg IVPUSH Q5M PRN PRN Reason: PAIN-PACU ORDER X 4 DOSES ONLY Last Admin: 08/20/18 17:00 Dose: 50 mcg Piperacillin Sod/Tazobactam (Sod 3.375 gm/ Dextrose) 50 mls @ 100 mls/hr IVPB Q8H-IV [facility]; Protocol Last Admin: 08/24/18 10:59 Dose: 100 mls/hr Lactated Ringer's (Lactated Ringers Solution) 1,000 mls @ 125 mls/hr IV ASDIR [facility] Last Admin: 08/23/18 23:05 Dose: 125 mls/hr Levothyroxine Sodium (Synthroid -) 150 mcg PO AM [facility] Last Admin: 08/24/18 06:50 Dose: 150 mcg Metformin HCl (Glucophage Xr -) 750 mg PO TIDAC [facility] Last Admin: 08/24/18 11:01 Dose: 750 mg Metoprolol Tartrate (Lopressor -) 25 mg PO DAILY [facility] Last Admin: 08/24/18 11:00 Dose: 25 mg Ondansetron HCl (Zofran Injection) 4 mg IVPUSH Q6H PRN PRN Reason: NAUSEA AND/OR VOMITING Ondansetron HCl (Zofran Injection) 4 mg IVPUSH Q6H PRN PRN Reason: NAUSEA AND/OR VOMITING Silver Sulfadiazine (Silvadene -) 1 applic TP BID [facility] Last Admin: 08/24/18 11:03 Dose: Not Given - Objective Vital Signs: Vital Signs Temperature 97.7 F 08/23/18 19:52 Pulse Rate 71 08/23/18 19:52 Respiratory Rate 18 08/23/18 19:52 Blood Pressure 181/71 H 08/23/18 19:52 O2 Sat by Pulse Oximetry (%) 99 08/20/18 17:55 Constitutional: Yes: No Distress, Calm Cardiovascular: Yes: Regular Rate and Rhythm Respiratory: Yes: Regular, CTA Bilaterally Gastrointestinal: Yes: Normal Bowel Sounds, Soft Musculoskeletal: Yes: WNL Extremities: Yes: Other Wound/Incision: Yes: Dressing Dry and Intact Neurological: Yes: Alert, Oriented Psychiatric: Yes: Alert, Oriented Labs: CBC, BMP 08/23/18 14:45 08/23/18 14:45 Assessment/Plan Problem List - Problems (1) HTN (hypertension) Code(s): I10 - ESSENTIAL (PRIMARY) HYPERTENSION (2) HLD (hyperlipidemia) Code(s): E78.5 - HYPERLIPIDEMIA, UNSPECIFIED (3) Diabetes Code(s): E11.9 - TYPE 2 DIABETES MELLITUS WITHOUT COMPLICATIONS (4) Cellulitis, leg Code(s): L03.119 - CELLULITIS OF UNSPECIFIED PART OF LIMB (5) Infected wound Code(s): T14.8XXA - OTHER INJURY OF UNSPECIFIED BODY REGION, INITIAL ENCOUNTER; L08.9 - LOCAL INFECTION OF THE SKIN AND SUBCUTANEOUS TISSUE, UNSP plan continue abx will decide after talking to plastics rest as per the team will switch to oral tomorrow
--- NOTE | 2018-08-24 18:24 | PN ---
Progress Note, Physician History of Present Illness: comfortable - Current Medication List Current Medications: Active Medications Acetaminophen (Tylenol -) 650 mg PO Q6H PRN PRN Reason: FEVER Last Admin: 08/20/18 21:32 Dose: 650 mg Aspirin (Asa -) 81 mg PO DAILY [facility] Last Admin: 08/24/18 11:00 Dose: 81 mg Atorvastatin Calcium (Lipitor -) 40 mg PO HS [facility] Last Admin: 08/23/18 23:05 Dose: 40 mg Clopidogrel Bisulfate (Plavix -) 75 mg PO DAILY [facility] Last Admin: 08/24/18 11:00 Dose: 75 mg Fentanyl (Sublimaze Injection -) 50 mcg IVPUSH Q5M PRN PRN Reason: PAIN-PACU ORDER X 4 DOSES ONLY Last Admin: 08/20/18 17:00 Dose: 50 mcg Piperacillin Sod/Tazobactam (Sod 3.375 gm/ Dextrose) 50 mls @ 100 mls/hr IVPB Q8H-IV [facility]; Protocol Last Admin: 08/24/18 17:42 Dose: 100 mls/hr Lactated Ringer's (Lactated Ringers Solution) 1,000 mls @ 125 mls/hr IV ASDIR [facility] Last Admin: 08/23/18 23:05 Dose: 125 mls/hr Levothyroxine Sodium (Synthroid -) 150 mcg PO AM [facility] Last Admin: 08/24/18 06:50 Dose: 150 mcg Metformin HCl (Glucophage Xr -) 750 mg PO TIDAC [facility] Last Admin: 08/24/18 17:42 Dose: 750 mg Metoprolol Tartrate (Lopressor -) 25 mg PO DAILY [facility] Last Admin: 08/24/18 11:00 Dose: 25 mg Ondansetron HCl (Zofran Injection) 4 mg IVPUSH Q6H PRN PRN Reason: NAUSEA AND/OR VOMITING Ondansetron HCl (Zofran Injection) 4 mg IVPUSH Q6H PRN PRN Reason: NAUSEA AND/OR VOMITING Silver Sulfadiazine (Silvadene -) 1 applic TP BID [facility] Last Admin: 08/24/18 11:03 Dose: Not Given - Objective Vital Signs: Vital Signs Temperature 97.7 F 08/23/18 19:52 Pulse Rate 71 08/23/18 19:52 Respiratory Rate 18 08/24/18 09:00 Blood Pressure 181/71 H 08/23/18 19:52 O2 Sat by Pulse Oximetry (%) 99 08/20/18 17:55 Constitutional: Yes: No Distress HENT: Yes: Atraumatic Neck: Yes: Supple Cardiovascular: Yes: Regular Rate and Rhythm Respiratory: Yes: CTA Bilaterally Gastrointestinal: Yes: Normal Bowel Sounds Extremities: Yes: Other (llex in dressing) Neurological: Yes: Alert, Oriented Labs: CBC, BMP 08/23/18 14:45 08/23/18 14:45 Problem List - Problems (1) HTN (hypertension) Assessment/Plan: on meds monitor Code(s): I10 - ESSENTIAL (PRIMARY) HYPERTENSION (2) HLD (hyperlipidemia) Assessment/Plan: on meds Code(s): E78.5 - HYPERLIPIDEMIA, UNSPECIFIED (3) Diabetes Assessment/Plan: on po meds monitor bgms Code(s): E11.9 - TYPE 2 DIABETES MELLITUS WITHOUT COMPLICATIONS (4) Cellulitis, leg Assessment/Plan: on iv abx graft done today Code(s): L03.119 - CELLULITIS OF UNSPECIFIED PART OF LIMB (5) Infected wound Assessment/Plan: iv abx s/ surgery Code(s): T14.8XXA - OTHER INJURY OF UNSPECIFIED BODY REGION, INITIAL ENCOUNTER; L08.9 - LOCAL INFECTION OF THE SKIN AND SUBCUTANEOUS TISSUE, UNSP
[2018-08-24] MEDS: ATORVASTATIN CA 40 MG TABLET (FP) PO SCH (22:20)
[2018-08-25] MEDS ORDERED: DEXTROSE 5%-WATER - 50 ML IVPB ONE (01:25)
[2018-08-25] MEDS ORDERED: PIPERACILLIN/TAZOBACTAM 3.375 GM VIAL IVPB ONE (01:25)
[2018-08-25] MEDS: PIPERACILLIN/TAZOB 3.375 GM 3.375 GM in DEXTROSE 5%-WATER - 50 ML IVPB SCH (01:31)
[2018-08-25] MEDS ORDERED: PT OWN MED DRAWER 7, Y5N ONE ×3 (06:02→17:18)
[2018-08-25] MEDS: LEVOTHYROXINE NA 75 MCG TABLET (FP) PO SCH (06:20)
--- NOTE | 2018-08-25 09:30 | PN ---
Progress Note, Physician History of Present Illness: stable no new issues - Current Medication List Current Medications: Active Medications Acetaminophen (Tylenol -) 650 mg PO Q6H PRN PRN Reason: FEVER Last Admin: 08/20/18 21:32 Dose: 650 mg Aspirin (Asa -) 81 mg PO DAILY [facility] Last Admin: 08/24/18 11:00 Dose: 81 mg Atorvastatin Calcium (Lipitor -) 40 mg PO HS [facility] Last Admin: 08/24/18 22:20 Dose: 40 mg Clopidogrel Bisulfate (Plavix -) 75 mg PO DAILY [facility] Last Admin: 08/24/18 11:00 Dose: 75 mg Fentanyl (Sublimaze Injection -) 50 mcg IVPUSH Q5M PRN PRN Reason: PAIN-PACU ORDER X 4 DOSES ONLY Last Admin: 08/20/18 17:00 Dose: 50 mcg Lactated Ringer's (Lactated Ringers Solution) 1,000 mls @ 125 mls/hr IV ASDIR [facility] Last Admin: 08/23/18 23:05 Dose: 125 mls/hr Levothyroxine Sodium (Synthroid -) 150 mcg PO AM [facility] Last Admin: 08/25/18 06:20 Dose: 150 mcg Metformin HCl (Glucophage Xr -) 750 mg PO TIDAC [facility] Last Admin: 08/25/18 06:20 Dose: 750 mg Metoprolol Tartrate (Lopressor -) 25 mg PO DAILY [facility] Last Admin: 08/24/18 11:00 Dose: 25 mg Ondansetron HCl (Zofran Injection) 4 mg IVPUSH Q6H PRN PRN Reason: NAUSEA AND/OR VOMITING Ondansetron HCl (Zofran Injection) 4 mg IVPUSH Q6H PRN PRN Reason: NAUSEA AND/OR VOMITING Silver Sulfadiazine (Silvadene -) 1 applic TP BID [facility] Last Admin: 08/24/18 22:20 Dose: Not Given - Objective Vital Signs: Vital Signs Temperature 98.1 F 08/25/18 06:29 Pulse Rate 80 08/25/18 06:29 Respiratory Rate 20 08/25/18 06:29 Blood Pressure 163/86 08/25/18 06:29 O2 Sat by Pulse Oximetry (%) 99 08/20/18 17:55 Constitutional: Yes: No Distress, Calm Cardiovascular: Yes: Regular Rate and Rhythm Respiratory: Yes: Regular, CTA Bilaterally Gastrointestinal: Yes: Normal Bowel Sounds, Soft Musculoskeletal: Yes: WNL Extremities: Yes: Other Wound/Incision: Yes: Dressing Dry and Intact, Other (wound vac in place) Neurological: Yes: Alert, Oriented Psychiatric: Yes: Alert, Oriented Labs: CBC, BMP 08/23/18 14:45 08/23/18 14:45 Assessment/Plan Problem List - Problems (1) HTN (hypertension) Code(s): I10 - ESSENTIAL (PRIMARY) HYPERTENSION (2) HLD (hyperlipidemia) Code(s): E78.5 - HYPERLIPIDEMIA, UNSPECIFIED (3) Diabetes Code(s): E11.9 - TYPE 2 DIABETES MELLITUS WITHOUT COMPLICATIONS (4) Cellulitis, leg Code(s): L03.119 - CELLULITIS OF UNSPECIFIED PART OF LIMB (5) Infected wound Code(s): T14.8XXA - OTHER INJURY OF UNSPECIFIED BODY REGION, INITIAL ENCOUNTER; L08.9 - LOCAL INFECTION OF THE SKIN AND SUBCUTANEOUS TISSUE, UNSP plan will change to oral abx await for plastics rest as per the team wound care
[2018-08-25] MEDS: METOPROLOL TARTRATE 25 MG TABLET (FP) PO SCH (11:07)
[2018-08-25] MEDS: SILVER SULFADIAZINE 1% TOP CREAM 50 GM JAR TP SCH ×2 (11:07→21:56)
[2018-08-25] MEDS: CLOPIDOGREL BISULFATE 75 MG TABLET (FP) PO SCH (11:07)
[2018-08-25] MEDS: ASPIRIN 81 MG CHEWABLE TABLETS PO SCH (11:07)
[2018-08-25] MEDS: LACTATED RINGERS SOLUTION 1,000 ML IV SCH (12:17)
[2018-08-25] MEDS: AMOX TR/POT CLAV 875MG/125MG TABLETS (FP) PO SCH (17:19)
--- NOTE | 2018-08-25 20:27 | PN ---
Progress Note, Physician - Current Medication List Current Medications: Active Medications Acetaminophen (Tylenol -) 650 mg PO Q6H PRN PRN Reason: FEVER Last Admin: 08/20/18 21:32 Dose: 650 mg Amoxicillin/Clavulanate Potassium (Augmentin - 875mg Tablet) 1 tab PO BID@0800, 1730 [facility] Last Admin: 08/25/18 17:19 Dose: 1 tab Aspirin (Asa -) 81 mg PO DAILY [facility] Last Admin: 08/25/18 11:07 Dose: 81 mg Atorvastatin Calcium (Lipitor -) 40 mg PO HS [facility] Last Admin: 08/24/18 22:20 Dose: 40 mg Clopidogrel Bisulfate (Plavix -) 75 mg PO DAILY [facility] Last Admin: 08/25/18 11:07 Dose: 75 mg Fentanyl (Sublimaze Injection -) 50 mcg IVPUSH Q5M PRN PRN Reason: PAIN-PACU ORDER X 4 DOSES ONLY Last Admin: 08/20/18 17:00 Dose: 50 mcg Lactated Ringer's (Lactated Ringers Solution) 1,000 mls @ 125 mls/hr IV ASDIR [facility] Last Admin: 08/25/18 12:17 Dose: 125 mls/hr Levothyroxine Sodium (Synthroid -) 150 mcg PO AM [facility] Last Admin: 08/25/18 06:20 Dose: 150 mcg Metformin HCl (Glucophage Xr -) 750 mg PO TIDAC [facility] Last Admin: 08/25/18 17:19 Dose: 750 mg Metoprolol Tartrate (Lopressor -) 25 mg PO DAILY [facility] Last Admin: 08/25/18 11:07 Dose: 25 mg Ondansetron HCl (Zofran Injection) 4 mg IVPUSH Q6H PRN PRN Reason: NAUSEA AND/OR VOMITING Ondansetron HCl (Zofran Injection) 4 mg IVPUSH Q6H PRN PRN Reason: NAUSEA AND/OR VOMITING Silver Sulfadiazine (Silvadene -) 1 applic TP BID [facility] Last Admin: 08/25/18 11:07 Dose: 1 applic - Objective Vital Signs: Vital Signs Temperature 98.3 F 08/25/18 16:40 Pulse Rate 72 08/25/18 16:40 Respiratory Rate 20 08/25/18 16:40 Blood Pressure 123/63 08/25/18 16:40 O2 Sat by Pulse Oximetry (%) 99 08/20/18 17:55 Constitutional: Yes: No Distress HENT: Yes: Atraumatic Neck: Yes: Supple Cardiovascular: Yes: Regular Rate and Rhythm Respiratory: Yes: CTA Bilaterally Gastrointestinal: Yes: Normal Bowel Sounds Extremities: Yes: Other (llex in dressing) Neurological: Yes: Alert, Oriented Labs: CBC, BMP 08/23/18 14:45 08/23/18 14:45 Problem List - Problems (1) HTN (hypertension) Assessment/Plan: on meds monitor Code(s): I10 - ESSENTIAL (PRIMARY) HYPERTENSION (2) HLD (hyperlipidemia) Assessment/Plan: on meds Code(s): E78.5 - HYPERLIPIDEMIA, UNSPECIFIED (3) Diabetes Assessment/Plan: on po meds monitor bgms Code(s): E11.9 - TYPE 2 DIABETES MELLITUS WITHOUT COMPLICATIONS (4) Cellulitis, leg Assessment/Plan: on iv abx graft done today Code(s): L03.119 - CELLULITIS OF UNSPECIFIED PART OF LIMB (5) Infected wound Assessment/Plan: iv abx s/ surgery Code(s): T14.8XXA - OTHER INJURY OF UNSPECIFIED BODY REGION, INITIAL ENCOUNTER; L08.9 - LOCAL INFECTION OF THE SKIN AND SUBCUTANEOUS TISSUE, UNSP
[2018-08-25] MEDS: ATORVASTATIN CA 40 MG TABLET (FP) PO SCH (21:55)
[2018-08-26] MEDS ORDERED: PT OWN MED DRAWER 7, Y5N ONE ×2 (06:02→11:35)
[2018-08-26] MEDS: LEVOTHYROXINE NA 75 MCG TABLET (FP) PO SCH (06:19)
[2018-08-26] MEDS: CLOPIDOGREL BISULFATE 75 MG TABLET (FP) PO SCH (10:34)
[2018-08-26] MEDS: ASPIRIN 81 MG CHEWABLE TABLETS PO SCH (10:34)
[2018-08-26] MEDS: METOPROLOL TARTRATE 25 MG TABLET (FP) PO SCH (10:34)
[2018-08-26] MEDS: AMOX TR/POT CLAV 875MG/125MG TABLETS (FP) PO SCH (10:34)
[2018-08-26] MEDS: SILVER SULFADIAZINE 1% TOP CREAM 50 GM JAR TP SCH (10:48)
--- NOTE | 2018-08-26 11:10 | PN ---
Progress Note (short form) - Note Progress Note: FU for Skin Grafts Left lower leg Dressing changed Left lower leg yesterday : Graft [place] well adherent , no discharge, no erythema, no odor Donor dressing changed today..Xerform left adherent Patient can be discharged today to home, he has been ambulating well, Cathy Boot applied yestaerday for the graft compression and prevention of swelling Recommend Home Care 1. Evaluate Left leg circulation, if foot swelling leg to be elevated 2. Stool for left leg elevation when sitting 3. No showers till next week wound clinic visit 4. Donor area, leave xeroform adherent, may change Secondary dressing with dry 4x4, apply tape only on the edges, leave most area exposed to dry FU in wound clinic on Saturday in wound clinic , Make Apt ,
--- NOTE | 2018-08-26 11:56 | PN ---
Progress Note, Physician History of Present Illness: doing well plastics note noted wound vac removed - Current Medication List Current Medications: Active Medications Acetaminophen (Tylenol -) 650 mg PO Q6H PRN PRN Reason: FEVER Last Admin: 08/20/18 21:32 Dose: 650 mg Amoxicillin/Clavulanate Potassium (Augmentin - 875mg Tablet) 1 tab PO BID@0800, 1730 [facility] Last Admin: 08/26/18 10:34 Dose: 1 tab Aspirin (Asa -) 81 mg PO DAILY [facility] Last Admin: 08/26/18 10:34 Dose: 81 mg Atorvastatin Calcium (Lipitor -) 40 mg PO HS [facility] Last Admin: 08/25/18 21:55 Dose: 40 mg Clopidogrel Bisulfate (Plavix -) 75 mg PO DAILY [facility] Last Admin: 08/26/18 10:34 Dose: 75 mg Fentanyl (Sublimaze Injection -) 50 mcg IVPUSH Q5M PRN PRN Reason: PAIN-PACU ORDER X 4 DOSES ONLY Last Admin: 08/20/18 17:00 Dose: 50 mcg Lactated Ringer's (Lactated Ringers Solution) 1,000 mls @ 125 mls/hr IV ASDIR [facility] Last Admin: 08/25/18 12:17 Dose: 125 mls/hr Levothyroxine Sodium (Synthroid -) 150 mcg PO AM [facility] Last Admin: 08/26/18 06:19 Dose: 150 mcg Metformin HCl (Glucophage Xr -) 750 mg PO TIDAC [facility] Last Admin: 08/26/18 11:39 Dose: 750 mg Metoprolol Tartrate (Lopressor -) 25 mg PO DAILY [facility] Last Admin: 08/26/18 10:34 Dose: 25 mg Ondansetron HCl (Zofran Injection) 4 mg IVPUSH Q6H PRN PRN Reason: NAUSEA AND/OR VOMITING Ondansetron HCl (Zofran Injection) 4 mg IVPUSH Q6H PRN PRN Reason: NAUSEA AND/OR VOMITING Silver Sulfadiazine (Silvadene -) 1 applic TP BID [facility] Last Admin: 08/26/18 10:48 Dose: Not Given - Objective Vital Signs: Vital Signs Temperature 97.8 F 08/26/18 06:15 Pulse Rate 73 08/26/18 06:15 Respiratory Rate 20 08/26/18 06:15 Blood Pressure 130/70 08/26/18 06:15 O2 Sat by Pulse Oximetry (%) 94 L 08/25/18 21:00 Constitutional: Yes: No Distress, Calm Cardiovascular: Yes: Regular Rate and Rhythm Respiratory: Yes: Regular, CTA Bilaterally Gastrointestinal: Yes: Normal Bowel Sounds, Soft Musculoskeletal: Yes: Other Extremities: Yes: Other Wound/Incision: Yes: Dressing Dry and Intact, Other (site looks good,leg looks good) Neurological: Yes: Alert, Oriented Psychiatric: Yes: Alert, Oriented Labs: CBC, BMP 08/23/18 14:45 08/23/18 14:45 Assessment/Plan Problem List - Problems (1) HTN (hypertension) Code(s): I10 - ESSENTIAL (PRIMARY) HYPERTENSION (2) HLD (hyperlipidemia) Code(s): E78.5 - HYPERLIPIDEMIA, UNSPECIFIED (3) Diabetes Code(s): E11.9 - TYPE 2 DIABETES MELLITUS WITHOUT COMPLICATIONS (4) Cellulitis, leg Code(s): L03.119 - CELLULITIS OF UNSPECIFIED PART OF LIMB (5) Infected wound Code(s): T14.8XXA - OTHER INJURY OF UNSPECIFIED BODY REGION, INITIAL ENCOUNTER; L08.9 - LOCAL INFECTION OF THE SKIN AND SUBCUTANEOUS TISSUE, UNSP plan continue oral abx for another 3 days then stop it f/u in wound care rest as per the team
--- NOTE | 2018-08-26 12:58 | DS ---
Physical Examination Vital Signs: Vital Signs Temperature 97.8 F 08/26/18 06:15 Pulse Rate 73 08/26/18 06:15 Respiratory Rate 20 08/26/18 06:15 Blood Pressure 130/70 08/26/18 06:15 O2 Sat by Pulse Oximetry (%) 94 L 08/25/18 21:00 Constitutional: Yes: No Distress HENT: Yes: Atraumatic Neck: Yes: Supple Cardiovascular: Yes: Regular Rate and Rhythm Respiratory: Yes: CTA Bilaterally Gastrointestinal: Yes: Normal Bowel Sounds Extremities: Yes: Other (LLEX IN DRESSING) Neurological: Yes: Alert, Oriented Labs: CBC, BMP 08/23/18 14:45 08/23/18 14:45 Discharge Summary Reason For Visit: WOUND LEFT LEG Current Active Problems Diabetes (Acute) HLD (hyperlipidemia) (Acute) HTN (hypertension) (Acute) - Instructions Referrals: Lemuel Pinto MD [Staff Physician] - Disposition: [facility]/HOME HEALTH CARE - Home Medications Comprehensive Discharge Medication List: Ambulatory Orders Levothyroxine [Synthroid -] 150 mcg PO DAILY 05/14/18 Metformin HCl ER 750 mg PO TID 05/14/18 Metoprolol Tartrate 25 mg PO DAILY 05/14/18 Ergocalciferol [Vitamin D2] 50,000 unit PO SA 05/23/18 Clopidogrel Bisulfate [Plavix] 75 mg PO DAILY 07/15/18 Atorvastatin Ca [Lipitor] 40 mg PO HS tablet 07/18/18 Lactobacillus Acidophilus [Bacid -] 1 each PO TID #21 tab 07/18/18 oxyCODONE HCL [Roxicodone -] 5 mg PO Q6H PRN 7 Days #10 tablet MDD 2 07/18/18 ASA - 81 mg PO DAILY 08/13/18 Amox-Tr/K Cl [Augmentin 875-125mg Tablet -] 1 tab PO BID@0800,1730 #6 tablet 06/04 ok HOME wound care per plastic surgery
[2018-08-26 15:00] VITALS: BP 133/72; PULSE 80; TEMP 98.2
== END 2018-08-26 17:03 | disposition home health service (06) | DRG 902 ==
LOC: JASU-SURG 11:23 → JSAMEDAYSX 11:24 → J8W 20:03
PROVIDERS: ADMIT Internal Medicine; ATTEND Internal Medicine
PROC: 0Y9J0ZZ Drainage of Left Lower Leg, Open Approach (ICD-10-PCS; 2018-08-13)
PROC: 3E10X8Z Irrigation of Skin and Mucous Membranes using Irrigating Substance (ICD-10-PCS; 2018-08-13)
PROC: 0JBP0ZZ Excision of Left Lower Leg Subcutaneous Tissue and Fascia, Open Approach (ICD-10-PCS; principal; 2018-08-13 12:30)
PROC: 0HRLX74 Replacement of Left Lower Leg Skin with Autologous Tissue Substitute, Partial Thickness, External Approach (ICD-10-PCS; 2018-08-20)
PROC: 0JBP0ZZ Excision of Left Lower Leg Subcutaneous Tissue and Fascia, Open Approach (ICD-10-PCS; 2018-08-20)
DX: T14.8XXA Other injury of unspecified body region, initial encounter (principal); L03.116 Cellulitis of left lower limb; L08.89 Other specified local infections of the skin and subcutaneous tissue; E11.9 Type 2 diabetes mellitus without complications; I10 Essential (primary) hypertension; E78.5 Hyperlipidemia, unspecified; E03.9 Hypothyroidism, unspecified; N40.0 Benign prostatic hyperplasia without lower urinary tract symptoms; T14.90XA Injury, unspecified, initial encounter; X58.XXXA Exposure to other specified factors, initial encounter; Y93.9 Activity, unspecified; Y92.89 Other specified places as the place of occurrence of the external cause; Y99.9 Unspecified external cause status
CPT/HCPCS: 11042; 36415; 80053; 82962; 85025; 87070; 87077; 87205; 88304-TC; 94760; J1644

== ENCOUNTER 2020-09-28 04:16 | Inpatient (IN) | payer OTHER, MEDICARE ==
[2020-09-27 12:34] VITALS: BMI 30.8
[2020-09-28] MEDS ORDERED: ACETAMINOPHEN 1000 MG/100 ML VIAL (NON FORMULARY) IVPB ONE (13:43)
[2020-09-28] MEDS ORDERED: ONDANSETRON 4 MG/2 ML VIAL IVPUSH PRN (14:04)
[2020-09-28] MEDS ORDERED: oxyCODONE HCL 5 MG TABLET PO PRN (14:04)
[2020-09-28] MEDS ORDERED: MIDAZOLAM HCL 2 MG/2 ML SINGLE DOSE VIAL ONE (14:12)
[2020-09-28] MEDS ORDERED: LACTATED RINGERS SOLUTION 1,000 ML IV SCH (14:15)
[2020-09-28] MEDS ORDERED: ceFAZolin SODIUM 1 GM VIAL ONE (14:29)
[2020-09-28] MEDS: ceFAZolin SODIUM 1 GM VIAL IVPB ONE ×2 (14:33→18:00)
[2020-09-28] MEDS: ACETAMINOPHEN INJECTION 100 ML IVPB ONE ×2 (14:36→17:30)
[2020-09-28 17:52] LABS: BASO % 0.9 % (0-2.0); EOS % 4.7 % (0-4.5); HEMATOCRIT 33.5 % (35.4-49); LYMPH % 23.2 % (8-40); MCH 29.1 pg (25.7-33.7); MCHC 32.9 g/dl (32.0-35.9); MEAN CELL VOLUME 88.3 fl (80-96); MEAN PLT VOLUME 8.1 fl (7.5-11.1); MONO % 11.8 % (3.8-10.2); NEUT % 59.4 % (42.8-82.8); PLATELET COUNT 178 K/MM3 (134-434); RDW 15.5 % (11.9-15.9); WHITE BLOOD COUNT 6.6 K/mm3 (4.0-10.0)
[2020-09-28] MEDS: CEFAZOLIN 1 GM/D5W 1 GM/50 ML BAG IVPB SCH ×2 (18:00)
[2020-09-28 18:11] LABS: BLOOD UREA NITROGEN 21.8 mg/dL (7-18)
[2020-09-28 18:14] LABS: CREATININE 1.2 mg/dL (0.55-1.3)
[2020-09-28] MEDS: DEXTROSE 5%-0.45% SALINE 1,000 ML IV SCH (20:29)
[2020-09-29] MEDS: DEXTROSE 5%-0.45% SALINE 1,000 ML IV SCH ×2 (04:27→13:03)
[2020-09-29 07:44] LABS: BASO % 0.6 % (0-2.0); EOS % 3.3 % (0-4.5); HEMATOCRIT 30.8 % (35.4-49); HEMOGLOBIN 10.5 GM/dL (11.7-16.9); LYMPH % 17.6 % (8-40); MCH 29.3 pg (25.7-33.7); MCHC 33.9 g/dl (32.0-35.9); MEAN CELL VOLUME 86.4 fl (80-96); MEAN PLT VOLUME 8.2 fl (7.5-11.1); MONO % 9.9 % (3.8-10.2); NEUT % 68.6 % (42.8-82.8); PLATELET COUNT 178 K/MM3 (134-434); RBC 3.57 M/mm3 (4.00-5.60); RDW 15.7 % (11.9-15.9); WHITE BLOOD COUNT 6.5 K/mm3 (4.0-10.0)
[2020-09-29 08:14] LABS: BLOOD UREA NITROGEN 20.9 mg/dL (7-18); CALCIUM 8.5 mg/dL (8.5-10.1)
[2020-09-29 08:17] LABS: CREATININE 1.3 mg/dL (0.55-1.3)
[2020-09-29] MEDS ORDERED: DEXTROSE 5%-WATER - 50 ML IVPB ONE (09:57)
[2020-09-29] MEDS ORDERED: ceFAZolin SODIUM 1 GM VIAL ONE (09:57)
[2020-09-29] MEDS: CEFAZOLIN 1 GM in DEXTROSE 5%-WATER - 1 GM/50 ML IVPB IVPB SCH ×2 (09:59→17:29)
[2020-09-29] MEDS ORDERED: PT OWN MED DRAWER 7, Y5N ONE (17:23)
[2020-09-30] MEDS ORDERED: DEXTROSE 5%-WATER - 50 ML IVPB ONE (01:43)
[2020-09-30] MEDS ORDERED: ceFAZolin SODIUM 1 GM VIAL ONE ×2 (01:43→10:12)
[2020-09-30] MEDS: CEFAZOLIN 1 GM in DEXTROSE 5%-WATER - 1 GM/50 ML IVPB IVPB SCH ×2 (01:48→10:26)
[2020-09-30] MEDS: DEXTROSE 5%-0.45% SALINE 1,000 ML IV SCH (06:16)
[2020-09-30 14:46] VITALS: BP 129/59; PULSE 64; TEMP 98.6
== END 2020-09-30 17:18 | disposition home or self-care (01) | DRG 714 ==
LOC: JASUSAT 04:16 → JASU-SURG 04:16 → J8W 20:06 → JASUSAT 20:07 → J8W 20:07
PROVIDERS: ADMIT Urology; ATTEND Urology
PROC: 0TJB8ZZ Inspection of Bladder, Via Natural or Artificial Opening Endoscopic (ICD-10-PCS; 2020-09-28)
PROC: 0VT08ZZ Resection of Prostate, Via Natural or Artificial Opening Endoscopic (ICD-10-PCS; principal; 2020-09-28 14:00)
DX: N40.1 Benign prostatic hyperplasia with lower urinary tract symptoms (principal); R33.8 Other retention of urine; R31.0 Gross hematuria
CPT/HCPCS: 36415; 80048; 82962; 85025; 88305-TC; 88307-TC; 88342-TC; 94760; J0131